=== PATIENT | female | born 1980 | race Caucasian/White ===

== ENCOUNTER 2016-07-04 11:29 | Emergency (ER) | payer OTHER ==
[~2016-07-04] VITALS: Ht 175.3 cm; Wt 115.8 kg
[~2016-07-04 11:29] MED LIST: ACET-1311 PO; ALBU0.08 INH; CYCL10TA6 PO; FOLI1TAB7 PO; IBUP-103 PO; MTHI50 INJ; TRAM-10 PO
[2016-07-04 11:35] VITALS: TEMP 37; Ht 175.3 cm; Wt 115.8 kg
[2016-07-04] MEDS ORDERED: NF406 PO (11:45)
[2016-07-04] MEDS ORDERED: KETOROLAC TROMETHAMINE 30 MG/ML VIAL IV STA (12:16)
[2016-07-04] MEDS ORDERED: SODIUM CHLORIDE 0.9% 1000ML 1,000 ML IV STA (12:16)
[2016-07-04] MEDS ORDERED: ONDANSETRON INJ 2 MG/ML 2 ML VIAL IV STA (12:16)
[2016-07-04] MEDS ORDERED: ALBUTEROL 0.5% NEB SOLN 2.5 MG/0.5 ML VIAL INH STA (12:16)
[2016-07-04 13:03] LABS: BASO % 0.2 %; BASO ABS # 0.01 K/uL (0-0.2); COMPLETE YES; EOS % 0.9 %; HEMATOCRIT 43.9 % (37-47); IG% 0.2 %; LYMPH % 27.1 %; LYMPH ABS # 1.18 K/uL (1.2-3.4); MEAN CELL VOLUME 86.2 fL (80-100); MEAN CORPUSCULAR HEMOGLOBIN 31.4 pg (25-34); MEAN CORPUSCULAR HGB CONC 36.4 g/dl (32-36); MEAN PLATELET VOLUME 10.2 fL (7.4-10.4); MONO % 10.8 %; NEUT % 60.8 %; PLATELET COUNT 155 K/uL (130-400); RED BLOOD COUNT 5.09 M/uL (4.2-5.4); WHITE BLOOD COUNT 4.36 K/uL (4.8-10.8)
[2016-07-04 13:29] LABS: ALT/SGPT 25 U/L (12-78); AST/SGOT 28 U/L (15-37); BLOOD UREA NITROGEN 14 mg/dl (7-18); CALCIUM 9.1 mg/dl (8.5-10.1); CARBON DIOXIDE 22 mmol/L (21-32); CHLORIDE 109 mmol/L (98-107); CREATININE 0.83 mg/dl (0.60-1.20); GLUCOSE 90 mg/dl (70-99); POTASSIUM 3.8 mmol/L (3.5-5.1); SODIUM 141 mmol/L (136-145)
[2016-07-04 13:43] LABS: INR 1.1 (0.9-1.1); PARTIAL THROMBOPLASTIN RATIO 1.1; PROTHROMBIN TIME (PATIENT) 11.5 SECONDS (9.0-12.0)
--- NOTE | 2016-07-04 13:57 | DIAGNOSTIC IMAGING REPORT ---
PA CHEST RADIOGRAPH AND UPRIGHT AND SUPINE AP RADIOGRAPHS OF THE ABDOMEN CLINICAL HISTORY: Abdominal pain. COMPARISON STUDY: Chest radiograph February 25, [address] of the abdomen and pelvis April 12, 2016. FINDINGS: Lung volumes are normal. Lungs are clear. There is no pneumothorax or pleural effusion. There is no evidence of pulmonary edema. Cardiomediastinal silhouette is normal. There are cholecystectomy clips. There is no free air. The bowel gas pattern is normal. Pelvic calcifications were shown to represent phleboliths on prior CT. IMPRESSION: 1. No free air or evidence of bowel obstruction. 2. No acute cardiopulmonary findings. Electronically signed by: Isiah Renee M.D. 07/04/2016 1:55 PM Dictated Date/Time: 07/04/2016 1:53 PM
[2016-07-04 14:07] LABS: ALKALINE PHOSPHATASE 94 U/L (45-117)
[2016-07-04] MEDS ORDERED: METHYLPREDNISOLONE 125 MG VIAL IV STA (14:13)
[2016-07-04 15:04] LABS: URINE APPEARANCE CLOUDY (CLEAR); URINE COLOR DK YELLOW; URINE EPITHELIAL CELL AUTO >30 /lpf (0-5); URINE NITRITE NEG (NEG); URINE PH 5.5 (4.5-7.5); URINE SPECIFIC GRAVITY 1.029 (1.000-1.030); UROBILINOGEN NEG (NEG)
[2016-07-04] MEDS ORDERED: OPTIRAY 320 IV PRN (15:15)
[2016-07-04 15:16] LABS: MANUAL MICROSCOPIC REQUIRED? NO; REVIEW REQ? NO; URINE BILIRUBIN NEG (NEG)
--- NOTE | 2016-07-04 15:24 | DIAGNOSTIC IMAGING REPORT ---
CT ANGIOGRAPHY OF THE CHEST, PULMONARY EMBOLUS PROTOCOL CLINICAL HISTORY: Short of breath, palpitations and bloody sputum. COMPARISON STUDY: Chest CT October 03, 2015. TECHNIQUE: The patient was premedicated for an IV dye allergy as per the ER protocol. Following IV administration of 105 mL of [id number]-[id number], helical axial images of the chest were obtained utilizing the pulmonary embolus protocol. Maximal intensity projections and sagittal and coronal reformats were viewed on an independent 3D workstation. IV contrast was administered without complication. CT DOSE: 641.04 mGy.cm FINDINGS: No pulmonary emboli are identified. The size of the heart is normal. There is no evidence of thoracic aortic dissection. No enlarged axillary, mediastinal or hilar lymph nodes are present. The central airways are patent. A 4 mm nodule within the right middle lobe is unchanged. This is benign. There is no consolidation. There is no pneumothorax or pleural effusion. There is a small hiatal hernia. The bony thorax and upper abdomen are unremarkable. IMPRESSION: 1. No pulmonary emboli identified. 2. No acute intrathoracic findings. Electronically signed by: Isiah Renee M.D. 07/04/2016 3:22 PM Dictated Date/Time: 07/04/2016 3:04 PM
[2016-07-04 16:16] VITALS: BP 126/72; PULSE 95; O2SAT 96
--- NOTE | 2016-07-06 09:10 | EMERGENCY ROOM VISIT NOTE ---
ED Visit Note First contact with patient: 11:58 Chief Complaint: Fever, cough, chills, muscle aches and diarrhea. History of Present Illness: Ms. Watkins is a 35-year-old white female who ambulates into the ED with multiple flulike complaints. Historically patient reports she has a history of diabetes, asthma, bronchitis, pneumonia and rheumatoid arthritis. Patient reports 3 days ago her was diagnosed with influenza A at a local urgent care center. She was prophylactically started on Tamiflu because she was started experiencing upper respiratory tract symptoms at that time including nasal congestion, drainage and a nonproductive cough. She reports that last night she started feeling ill with a worsening cough, chest discomfort, fevers, chills, and body aches. Currently she describes her chest discomfort as if someone punched her in the chest. The pain is nonradiating. She places her discomfort in the midsternal area. She rates her discomfort 7/10. The discomfort is nonradiating. It worsens with deep inspiration and cough. She has not identified any alleviating factors related to the pain. She does report she has been using ibuprofen for some of her other symptoms but has had no relief of her discomfort. She reports her cough is constant. Her cough is is productive of a mostly yellowish sputum but does report intermittently she has seen some red streaking in the sputum. Associated with her pain and cough she does report she feels short of breath, intermittent heart racing and has been having pain in both lower legs while sleeping last night. Her body aches are primarily in her larger muscles. They worsen with palpation and movement. She has minimal relief of her discomfort with ibuprofen. Additionally she reports that she has been having some posttussive vomiting and this morning she reports after eating she developed crampy abdominal and diarrhea. Since that time every time she attempts to eat or drink her diarrhea returns. She reports she has had 4 episodes of yellowish watery stools. She denies skin eruptions, skin color changes, headache, dizziness, lightheadedness, painful talking, drooling, voice changes, neck pain/stiffness, nausea, bloody vomitus, bloody stools, urinary symptoms, vaginal bleeding/ discharge, flank pain, back pain. Review of Systems: As noted above in history of present illness. All body systems were reviewed and found to be negative as noted above. Past Medical History: As previously noted, GERD, gastric ulcers, ureter stricture, status post hysterectomy, cholecystectomy and multiple orthopedic surgeries. Current Medications: Medications Dose Route/Sig Max Daily Dose Days Date Category Dose Instructions Tamiflu (Oseltamivir Phosphate) 75 Mg Cap 75 Mg PO DAILY 07/04/16 Reported Tylenol (Acetaminophen) 325 Mg Tab 650 Mg PO Q4 PRN 03/01/16 Reported Advil (Ibuprofen) 200 Mg Tab 200 Mg PO 03/01/16 Reported Proventil 0.083% 2.5MG/3ML (Albuterol Sulfate) Nebu 2.5 Mg INH Q6 PRN 12/27/15 Reported Ultram (Tramadol HCl) 50 Mg Tab 50 Mg PO HS PRN 12/27/15 Reported Imitrex (Sumatriptan Succinate) 100 Mg Tab 100 Mg PO UD PRN 12/09/15 Reported TAKE ONE TABLET AT ONSET OF MIGRAINE, MAY REPEAT AFTER 2 HOURS IF NEEDED. Topamax (Topiramate) 25 Mg Tab 25 Mg PO DAILY 12/09/15 Reported Allergies to Medications: Penicillin, Compazine, Benadryl, iodine, IV contrast. Social History: Patient is currently employed; she feels safe in her home environment; she denies tobacco and alcohol use. Physical Examination: Vital Signs: Date Time Temp Pulse Resp B/P Pulse Ox O2 Delivery O2 Flow Rate FiO2 07/04/16 16:16 95 20 126/72 96 Room Air 07/04/16 14:38 93 20 123/61 95 Room Air 07/04/16 12:58 81 07/04/16 12:48 94 24 127/90 94 Room Air 07/04/16 11:35 37.0 104 18 111/69 97 Room Air GENERAL: 35-year-old female in moderate distress due to symptoms but does not appear in acute respiratory distress, nontoxic-appearing, afebrile and hemodynamically stable. NEUROLOGICAL: Awake, alert and oriented to person, place and time. Answering questions appropriately and following commands. Normal gait. Good hand eye coordination. No focal motor sensory deficits. SKIN: Warm, dry and pink. No soft tissue eruptions or trauma noted. HEENT: Atraumatic and normocephalic. PERRLA. Sclera white and conjunctiva pink. No drainage from naris, but audible congestion. Oral cavity moist and pink. Uvula midline and no abscesses are seen. No posterior pharyngeal erythema or edema. No tonsillar hypertrophy or exudates. Speech normal. No lymphadenopathy. Trachea midline. No jugular venous distention. BACK: No tenderness over the bony spine. Full range of motion of the cervical spine. No CVA tenderness. THORAX: Lungs sounds are clear to auscultation but decreased bilaterally in the bases. Equal bilaterally with symmetrical chest wall. No wheezing, rales or rhonchi. No crepitus, tenderness, subcutaneous air or deformities noted. No increased respiratory effort or rate. HEART: Tachycardic rate and rhythm. No gallops, rubs or murmurs are appreciated. ABDOMEN: Obese, soft and nontender. Positive bowel sounds in all quadrants. No guarding, rigidity or organomegaly. EXTREMITIES: Moves all extremities well on command and with purpose. All distal neurovascular statuses are intact and equal bilaterally. No calf tenderness or cords. ED Course: Patient is assessed as noted above. Laboratory Testing: Test 07/04/16 12:20 07/04/16 12:30 07/04/16 12:36 07/04/16 12:47 Range/Units White Blood Count 4.36 4.8-10.8 K/uL Red Blood Count 5.09 4.2-5.4 M/uL Hemoglobin 16.0 12.0-16.0 g/dL Hematocrit 43.9 37-47 % Mean Corpuscular Volume 86.2 80-100 fL Mean Corpuscular Hemoglobin 31.4 25-34 pg Mean Corpuscular Hemoglobin Concent 36.4 32-36 g/dl Platelet Count 155 130-400 K/uL Mean Platelet Volume 10.2 7.4-10.4 fL Neutrophils (%) (Auto) 60.8 % Lymphocytes (%) (Auto) 27.1 % Monocytes (%) (Auto) 10.8 % Eosinophils (%) (Auto) 0.9 % Basophils (%) (Auto) 0.2 % Neutrophils # (Auto) 2.65 1.4-6.5 K/uL Lymphocytes # (Auto) 1.18 1.2-3.4 K/uL Monocytes # (Auto) 0.47 0.11-0.59 K/uL Eosinophils # (Auto) 0.04 0-0.5 K/uL Basophils # (Auto) 0.01 0-0.2 K/uL RDW Standard Deviation 39.1 36.4-46.3 fL RDW Coefficient of Variation 12.3 11.5-14.5 % Immature Granulocyte % (Auto) 0.2 % Immature Granulocyte # (Auto) 0.01 0.00-0.02 K/uL Sodium Level 141 136-145 mmol/L Potassium Level 3.8 3.5-5.1 mmol/L Chloride Level 109 98-107 mmol/L Carbon Dioxide Level 22 21-32 mmol/L Anion Gap 10.0 3-11 mmol/L Blood Urea Nitrogen 14 7-18 mg/dl Creatinine 0.83 0.60-1.20 mg/dl Est Creatinine Clear Calc Drug Dose 126.1 ml/min Estimated GFR () 104.4 Estimated GFR (Non- 90.1 BUN/Creatinine Ratio 17.0 10-20 Random Glucose 90 70-99 mg/dl Calcium Level 9.1 8.5-10.1 mg/dl Total Bilirubin 0.3 0.2-1 mg/dl Direct Bilirubin < 0.1 0-0.2 mg/dl Aspartate Amino Transf (AST/SGOT) 28 15-37 U/L Alanine Aminotransferase (ALT/SGPT) 25 12-78 U/L Alkaline Phosphatase 94 45-117 U/L Total Protein 7.5 6.4-8.2 gm/dl Albumin 3.9 3.4-5.0 gm/dl Lipase 91 73-393 U/L Bedside Glucose 100 70-90 mg/dl Influenza Type A Antigen POS for Influ A NEG Influenza Type B Antigen Neg for Influ B NEG Bedside D-Dimer > 450 0-450 ng/mlFEU Bedside Troponin I 0.000 0-0.045 ng/ml Test 07/04/16 13:23 07/04/16 14:30 Range/Units Prothrombin Time 11.5 9.0-12.0 SECONDS Prothromb Time International Ratio 1.1 0.9-1.1 Activated Partial Thromboplast Time 27.9 21.0-31.0 SECONDS Partial Thromboplastin Ratio 1.1 Urine Color DK YELLOW Urine Appearance CLOUDY CLEAR Urine pH 5.5 4.5-7.5 Urine Specific [place] 1.029 1.000-1.030 Urine Protein NEG NEG Urine Glucose (UA) NEG NEG Urine Ketones 2+ NEG Urine Occult Blood NEG NEG Urine Nitrite NEG NEG Urine Bilirubin NEG NEG Urine Urobilinogen NEG NEG Urine Leukocyte Esterase NEG NEG Urine WBC (Auto) 1-5 0-5 /hpf Urine RBC (Auto) 0-4 0-4 /hpf Urine Hyaline Casts (Auto) 1-5 0-5 /lpf Urine Epithelial Cells (Auto) >30 0-5 /lpf Urine Bacteria (Auto) NEG NEG Patient unable to provide a stool sample. Acute Abdominal X-Ray Series: Was read by myself and the radiologist showing no acute infiltrates, effusions or pneumothorax. Normal heart silhouette and bony anatomy. Abdominal component shows a nonspecific bowel gas pattern that does not appear obstructed. There is no free air under the diaphragm. Radiologist does note cholecystectomy clips and pelvic calcifications seen similar on previous abdominal CT. Chest CTA: Was reviewed by myself and read by the radiologist shows no acute pulmonary emboli or acute intrathoracic findings. Patient was hydrated with normal saline, she received 30 mg of Toradol IV for pain, 4 mg of Zofran IV for nausea, an albuterol/Atrovent nebulizer breathing treatment and 125 mg of Solu-Medrol IV. Patient was reassessed multiple times during her stay in the emergency department; after her breathing treatment her lung sounds were reassessed and she had an improved air movement in the bases and continued to have no wheezing , rales or rhonchi. Patient's case was reviewed with Dr. Donis; we agreed on diagnostic approach, treatment, disposition and plan. Patient was educated about tonight's findings and instructed on her treatment plan; she verbalizes understanding and agreement with this plan. Clinical Impression: Influenza A. Decision-Making: Initially my differential diagnosis I considered influenza, pneumonia, bronchitis, pulmonary embolism, acute coronary syndrome and other causes. Disposition: Patient discharged home in stable condition accompanied by her ; prior to departure she was reassessed and subjectively reported she was feeling better. Plan: Patient was encouraged to alternate ibuprofen and acetaminophen every 3 hours as needed for pain or fevers. Patient was encouraged to stay well hydrated. Patient was encouraged to continue her current medications including her Tamiflu. Patient was signed off work for 3 days or until fever free for 24 hours. Patient was encouraged to follow-up with family physician for recheck in the next 3-4 days. Patient was encouraged return ED for worsening/uncontrolled pain, worsening cough, shortness of breath/wheezing, coughing up blood, uncontrolled fevers or any new/concerning symptoms.
[2016-07-21] MEDS ORDERED: CALC500C3 PO (07:04)
[2016-07-21] MEDS ORDERED: OXYC-57 PO (08:35)
[2017-01-03] MEDS ORDERED: TOPI25TA99 PO (11:35)
[2017-01-03] MEDS ORDERED: SUMA100T16 PO (11:35)
== END 2016-07-04 16:19 | disposition home or self-care (01) ==
LOC: C.EDB 11:31 → C.EDC 16:19
DX: J11.1 Influenza due to unidentified influenza virus with other respiratory manifestations (principal); E11.9 Type 2 diabetes mellitus without complications; M06.9 Rheumatoid arthritis, unspecified; R19.7 Diarrhea, unspecified; Z87.01 Personal history of pneumonia (recurrent); Z87.19 Personal history of other diseases of the digestive system; Z90.710 Acquired absence of both cervix and uterus; Z90.49 Acquired absence of other specified parts of digestive tract

== ENCOUNTER → 2016-07-21 | Day surgery (SDC) | payer OTHER ==
[2016-07-11 08:43] VITALS: BMI 38.0
--- NOTE | 2016-07-11 09:16 | PAT Medication Instructions ---
Service Date Jul 11, 2016. Current Home Medication List Albuterol Soln (Proventil 0.083% 2.5MG/3ML), 2.5 MG INH Q6 PRN for SOB/Wheezing Sumatriptan Succinate (Imitrex), 100 MG PO UD PRN for Migraine Topiramate (Topamax ), 25 MG PO DAILY Tramadol (Ultram), 50 MG PO HS PRN for Pain Medication Instructions For Your Scheduled Surgery - Take the following medications the morning of surgery with a sip of water OTHERWISE NOTHING TO EAT OR DRINK AFTER MIDNIGHT: Tramadol (Ultram), 50 MG PO HS PRN for Pain (may take up to 4 hours prior to surgery if needed) Topiramate (Topamax ), 25 MG PO PRN Sumatriptan Succinate (Imitrex), 100 MG PO UD PRN for Migraine Albuterol Soln (Proventil 0.083% 2.5MG/3ML), 2.5 MG INH Q6 PRN for SOB/Wheezing Albuterol Inhaler PRN (use if needed; BRING TO HOSPITAL) - Take the following medications as scheduled the night before surgery: Tramadol (Ultram), 50 MG PO HS PRN for Pain Sumatriptan Succinate (Imitrex), 100 MG PO UD PRN for Migraine Albuterol Soln (Proventil 0.083% 2.5MG/3ML), 2.5 MG INH Q6 PRN for SOB/Wheezing Albuterol Inhaler PRN If you have any questions please call us at [phone] (Isela Oro PA-C ) or [phone] or [phone]
[2016-07-11 10:27] LABS: URINE APPEARANCE CLEAR (CLEAR); URINE BILIRUBIN NEG (NEG); URINE COLOR YELLOW; URINE NITRITE NEG (NEG); URINE SPECIFIC GRAVITY 1.017 (1.000-1.030); UROBILINOGEN NEG (NEG)
[2016-07-11 10:32] LABS: MANUAL MICROSCOPIC REQUIRED? NO; REVIEW REQ? NO
[~2016-07-21] VITALS: Ht 175.3 cm; Wt 117.9 kg
[~2016-07-21] MED LIST changes: -ACET-1311 PO; +ALBINS/ INH; +ATROPINE SULFATE 0.1 MG/ML 5ML SYR IV PRN; +CALC500C3 PO; +CIPROFLOXACIN / D5W 400 MG IV SCH; +CONRAY 30% 150ML BOTTLE INSTIL ONE; -CYCL10TA6 PO; +DEXAMETHASONE SOD INJ 4 MG/ML VIAL ONE; +EpHEDrine SULFATE INJ 50 MG/ML AMP IV PRN; +FENTANYL CITRATE INJ 50 MCG/1 ML 2 ML VIAL IV PRN; +FENTANYL CITRATE INJ 50 MCG/1 ML 2 ML VIAL ONE; +FLUMAZENIL 0.1 MG/1 ML 10 ML VIAL IV PRN; -FOLI1TAB7 PO; +HYDROmorphone INJ 2 MG/ML SYR/VIAL IV PRN; +LABETALOL HCL IV 5 MG/ML 20ML IV PRN; +LACTATED RINGER'S 1000ML 1,000 ML IV SCH; +LIDOCAINE HCL 2% 2 ML VIAL (20MG/ML) ONE; +MEPERIDINE HCL 25 MG/ML CARP IV PRN; +MIDAZOLAM HCL 1 MG/ML 2ML VIAL ONE; -MTHI50 INJ; +NALOXONE HCL 0.4 MG/1 ML VIAL/CARP IV PRN; +NAPR1TAB9 PO; +ONDANSETRON INJ 2 MG/ML 2 ML VIAL IV PRN; +ONDANSETRON INJ 2 MG/ML 2 ML VIAL ONE; +OXYC-57 PO; +OXYCODONE/ACETAMINOPHEN 5-325 TAB PO PRN; +PHENYLEPHRINE 100MCG/ML 5ML SYR IV PRN; +PROPOFOL IV EMULSION 10 MG/ML 20 ML VIAL IV ONE; +SCOPOLAMINE 1.5 MG TDSY TD ONE; +SCOPOLAMINE 1.5 MG TDSY TD SCH; +SUMA100T16 PO; +TOPI25TA99 PO; +ZLF/50 PO
[2016-07-21 07:05] VITALS: BP 132/71; PULSE 84; TEMP 36.7; O2SAT 96; Ht 175.3 cm; Wt 117.9 kg
--- NOTE | 2016-07-21 07:05 | History & Physical Bridge Note ---
H&P Re-Evaluation Bridge Note: I have examined the patient, reviewed the History & Physical and in the interval since the performance of the History & Physical I have noted the following changes of clinical significance: No changes noted
--- NOTE | 2016-07-21 08:32 | [facility] Post Operative Brief Note ---
Immediate Operative Summary Operative Date Jul 21, 2016. Pre-Operative Diagnosis Abnormal bladder mucosa Post-Operative Diagnosis same Procedure(s) Performed cysto retrogrades bladder biopsy and fulguration Surgeon luis daniel [employer] Healthcare Consultant Surgeon(s) none Estimated Blood Loss none Findings abnormal bladder mucosa normal retrogrades Specimens bladder biopsy
--- NOTE | 2016-07-21 08:36 | Discharge Instructions ---
Discharge Instructions Visit Reason for Visit: Bladder Neoplasm Discharge Discharge Diagnosis / Problem: abnormal bladder mucosa Discharge Goals Goal(s): Therapeutic intervention Activity Recommendations Activity Limitations: resume your previous activity (take it easy today) Anesthesia . Post Anesthesia Instructions: If you have had General Anesthesia or IV Sedation: * Do not drive today. * Resume driving when surgeon permits. * Do not make important decisions or sign legal documents today. * Call surgeon for: 1. Temperature elevations greater than 101 degrees F. 2. Uncontrollable pain. 3. Excessive bleeding. 4. Persistent nausea and vomiting. 5. Medication intolerance (nausea, vomiting or rash). * For nausea and vomiting use only clear liquids such as: tea, soda, bouillon until nausea subsides, then gradually increase diet as tolerated. * If you have any concerns or questions, call your surgeon's office. If physician is unavailable and it is an emergency, call 911 or go to the nearest emergency room. . Diet Recommendations Recommended Home Diet: resume previous diet Procedures Procedures Performed: cysto retrogrades bladder biopsy and fulguration Pending Studies Studies pending at discharge: no Medical Emergencies . Who to Call and When: Medical Emergencies: If at any time you feel your situation is an emergency, please call 911 immediately. . Non-Emergent Contact Non-Emergency issues call your: Urologist . . "Provider Documentation" section prepared by Mervin Evans. [place] Drug Monitoring Program Search Results: patient reviewed within database
--- NOTE | 2016-07-21 09:08 | OPERATIVE REPORT ---
DATE OF OPERATION: 07/21/2016 PREOPERATIVE DIAGNOSES: Gross hematuria, abnormal bladder mucosa. POSTOPERATIVE DIAGNOSIS: Same. PROCEDURE: Cystoscopy, bilateral retrograde pyelograms, bladder biopsy x2 and fulguration. FINDINGS: Cystoscopic exam revealed normal urethra. Bladder showed 2 areas of heaped up erythematous mucosa. Left and right retrogrades were normal. SURGEON: Dr. Evans. ANESTHESIA: General. DRAINS: None. COMPLICATIONS: None. SPECIMENS: Bladder biopsies. INDICATIONS: The patient is a 35-year-old white female who was seen in the office for gross hematuria. Workup, including a cystoscopy, showed some abnormal bladder mucosa. She is being brought in now for cysto retrogrades and bladder biopsy. PROCEDURE: After the induction of an adequate general anesthetic and appropriate time-out, the patient was placed in the dorsal lithotomy position, lower abdomen and genitalia were prepped with Hibiclens and draped in a sterile fashion. Using a 22-Dominican cystoscope, routine cystoscopic exam was performed with the above noted findings with the 30 and 70 degree lenses. Next, using a 4.8 Dominican cone tipped catheter, left and right retrograde pyelograms were performed with the above noted findings. After completing this, the 2 abnormal areas in the bladder were biopsied and then these areas were fulgurated for hemostasis. After completing this and making sure there was no bleeding, bladder was drained, cystoscope and sheath were removed. All needle, sponge and instrument counts were correct at the end of the case. The patient tolerated the procedure well and went to the recovery room in stable condition. I attest to the content of the Intraoperative Record and any orders documented therein. Any exceptio ns are noted below.
[2016-07-21 09:30] VITALS: BP 107/58; PULSE 75; TEMP 36.7; O2SAT 96
--- NOTE | 2016-07-21 09:32 | DIAGNOSTIC IMAGING REPORT ---
INTRAOPERATIVE RADIOGRAPHS CLINICAL HISTORY: Bilateral retrograde ureterogram. Fluoroscopy time: 14 seconds. FINDINGS: 7 spot fluoroscopic views of the abdomen from bilateral retrograde ureterogram procedures are presented. Correlation is made with abdominal CT dated 04/12/2016. Both ureters appear to opacify smoothly with injected contrast. No hydronephrosis is seen. No filling defects are clearly visualized. Numerous pelvic phleboliths are observed. IMPRESSION: Intraoperative images from bilateral retrograde ureterograms as above. See operative report for detailed findings. Electronically signed by: Hany Cole M.D. 07/21/2016 9:31 AM Dictated Date/Time: 07/21/2016 9:29 AM
[2016-07-21 10:00] VITALS: BP 106/64; PULSE 77; O2SAT 97
--- NOTE | 2016-07-21 10:04 | Anesthesiology Progress Note ---
Anesthesia Post Op Note Date & Time Jul 21, 2016 at 10:04 Vital Signs Pain Intensity: 0 Vital Signs Past 12 Hours Date Time Temp Pulse Resp B/P Pulse Ox O2 Delivery O2 Flow Rate FiO2 07/21/16 09:30 36.7 75 20 107/58 96 Room Air 07/21/16 09:24 74 22 07/21/16 09:24 73 22 94 07/21/16 09:23 115/64 07/21/16 09:19 65 12 07/21/16 09:19 67 12 97 07/21/16 09:18 103/56 07/21/16 09:14 71 9 07/21/16 09:14 75 9 92 07/21/16 09:13 108/66 07/21/16 09:09 73 14 07/21/16 09:09 72 14 113/61 97 07/21/16 09:08 36.4 79 16 07/21/16 09:08 77 16 96 07/21/16 09:07 115/80 07/21/16 09:03 91 14 115/101 90 07/21/16 09:03 84 14 07/21/16 08:58 74 16 07/21/16 08:58 75 16 111/69 96 07/21/16 08:53 82 25 125/73 93 07/21/16 08:53 83 25 07/21/16 08:49 119/70 07/21/16 08:48 83 19 95 07/21/16 08:48 82 19 07/21/16 08:43 85 17 07/21/16 08:43 85 17 141/74 100 07/21/16 08:38 82 18 07/21/16 08:38 82 18 133/87 100 07/21/16 08:33 87 19 140/82 100 07/21/16 08:33 86 19 07/21/16 08:30 113/89 07/21/16 08:28 36.5 90 20 113/89 100 Mask 10 07/21/16 07:05 36.7 84 18 132/71 96 Room Air Notes Mental Status: alert / awake / arousable, participated in evaluation Pt Amnestic to Procedure: Yes Nausea / Vomiting: adequately controlled Pain: adequately controlled Airway Patency, RR, SpO2: stable & adequate BP & HR: stable & adequate Hydration State: stable & adequate Anesthetic Complications: no major complications apparent
[2016-07-21 10:48] VITALS: BP 121/73; PULSE 81; TEMP 36.4; O2SAT 97
== END | disposition home or self-care (01) ==
LOC: C.ACU 06:51
PROVIDERS: ATTEND Urology
DX: R31.0 Gross hematuria (principal); N32.9 Bladder disorder, unspecified; E11.9 Type 2 diabetes mellitus without complications; Z86.711 Personal history of pulmonary embolism; J45.909 Unspecified asthma, uncomplicated; G51.0 Bell's palsy; E66.9 Obesity, unspecified; Z68.38 Body mass index [BMI] 38.0-38.9, adult; Z91.013 Allergy to seafood; Z88.0 Allergy status to penicillin; Z88.1 Allergy status to other antibiotic agents; Z90.49 Acquired absence of other specified parts of digestive tract; Z98.890 Other specified postprocedural states; Z90.710 Acquired absence of both cervix and uterus; Z87.891 Personal history of nicotine dependence; Z98.51 Tubal ligation status; Z83.3 Family history of diabetes mellitus; Z82.49 Family history of ischemic heart disease and other diseases of the circulatory system; Z82.5 Family history of asthma and other chronic lower respiratory diseases; Z80.0 Family history of malignant neoplasm of digestive organs; Z82.3 Family history of stroke

== ENCOUNTER → 2016-09-15 | Outpatient (CLI) | payer OTHER ==
[~2016-09-15] MED LIST changes: -ATROPINE SULFATE 0.1 MG/ML 5ML SYR IV PRN; -CIPROFLOXACIN / D5W 400 MG IV SCH; -CONRAY 30% 150ML BOTTLE INSTIL ONE; -DEXAMETHASONE SOD INJ 4 MG/ML VIAL ONE; -EpHEDrine SULFATE INJ 50 MG/ML AMP IV PRN; -FENTANYL CITRATE INJ 50 MCG/1 ML 2 ML VIAL IV PRN; -FENTANYL CITRATE INJ 50 MCG/1 ML 2 ML VIAL ONE; -FLUMAZENIL 0.1 MG/1 ML 10 ML VIAL IV PRN; -HYDROmorphone INJ 2 MG/ML SYR/VIAL IV PRN; -LABETALOL HCL IV 5 MG/ML 20ML IV PRN; -LACTATED RINGER'S 1000ML 1,000 ML IV SCH; -LIDOCAINE HCL 2% 2 ML VIAL (20MG/ML) ONE; -MEPERIDINE HCL 25 MG/ML CARP IV PRN; -MIDAZOLAM HCL 1 MG/ML 2ML VIAL ONE; -NALOXONE HCL 0.4 MG/1 ML VIAL/CARP IV PRN; -ONDANSETRON INJ 2 MG/ML 2 ML VIAL IV PRN; -ONDANSETRON INJ 2 MG/ML 2 ML VIAL ONE; -OXYCODONE/ACETAMINOPHEN 5-325 TAB PO PRN; -PHENYLEPHRINE 100MCG/ML 5ML SYR IV PRN; -PROPOFOL IV EMULSION 10 MG/ML 20 ML VIAL IV ONE; -SCOPOLAMINE 1.5 MG TDSY TD ONE; -SCOPOLAMINE 1.5 MG TDSY TD SCH
--- NOTE | 2016-09-15 12:27 | DIAGNOSTIC IMAGING REPORT ---
RIGHT KNEE 1 OR 2 VIEWS ROUTINE CLINICAL HISTORY: Right knee pain COMPARISON: None. DISCUSSION: No fractures or dislocations are visualized. There is a bone island within distal femur. IMPRESSION: No fractures, dislocations, destructive lesions, or erosive disease. Electronically signed by: Luis Benjamin M.D. 09/15/2016 12:26 PM Dictated Date/Time: 09/15/2016 12:25 PM
== END | disposition home or self-care (01) ==
LOC: C.RAD 11:56
PROVIDERS: ATTEND Nurse Practitioner
DX: M25.561 Pain in right knee (principal)

== ENCOUNTER 2016-10-15 14:04 | Emergency (ER) | payer OTHER ==
[~2016-10-15] VITALS: Ht 175.3 cm; Wt 118.8 kg
[~2016-10-15 14:04] MED LIST changes: -ALBINS/ INH; -IBUP-103 PO; -NAPR1TAB9 PO; -SUMA100T16 PO; -TOPI25TA99 PO; -ZLF/50 PO
[2016-10-15 14:19] VITALS: Ht 175.3 cm; Wt 118.8 kg
--- NOTE | 2016-10-15 15:16 | DIAGNOSTIC IMAGING REPORT ---
ULTRASOUND RIGHT VENOUS DOPP LOWER EXT UNILAT CLINICAL HISTORY: Right leg pain COMPARISON STUDY: 10/02/2015 FINDINGS: Real-time and color flow Doppler imaging were performed. Flow was seen within the femoral, popliteal and calf veins with no intraluminal thrombus demonstrated. The saphenous vein is patent. IMPRESSION: No evidence of right lower extremity DVT. Electronically signed by: Luis Benjamin M.D. 10/15/2016 3:13 PM Dictated Date/Time: 10/15/2016 3:13 PM
[2016-10-15] MEDS ORDERED: ALBINS/ INH (15:36)
[2016-10-15] MEDS ORDERED: NAPR1TAB9 PO (15:36)
--- NOTE | 2016-10-15 16:03 | EMERGENCY ROOM VISIT NOTE ---
History First contact with patient: 14:25 Chief Complaint: LEG PAIN,LEG INJURY Stated Complaint: R LEG PAIN,DOC REFER TO RULE OUT DVT History of Present Illness The patient is a 36 year old female who presents to the Emergency Room with complaints of right leg pain. The patient reports that she has had right knee pain for the past one month. She states that she has had progressively worsening pain, especially when walking and walking up stairs. She states that she has seen her primary care provider and did physical therapy for 3 weeks, which worsened her pain. She is currently waiting on a referral to orthopedics. She does state she has a history rheumatoid arthritis and was previously receiving injections of methotrexate but states that she did not tolerate this well. She sought care [facility] today because the pain has been radiating down into her right calf and was sent here for evaluation of a possible DVT. The patient is not a smoker. She denies control use. She denies any recent long trips. She denies any personal or family history of blood clots. She denies any chest pain, shortness of breath, numbness or weakness. Review of Systems A complete 10-point Review of Systems was discussed with the patient, with pertinent positives and negatives listed in the History of Present Illness. All remaining Review of Systems questions can be considered negative unless otherwise specified. Past Medical/Surgical History Medical Problems: (1) Abdominal pain (2) Abdominal pain (3) Abdominal pain (4) Abdominal pain (5) Abdominal pain (6) Abdominal pain (7) Acute bronchitis (8) Asthma (9) Back strain (10) Biliary dyskinesia (11) Bronchitis (12) Cellulitis (13) Cellulitis (14) Cellulitis (15) Chest pain (16) Chest pain (17) Chronic headache (18) Chronic headache (19) Chronic low back pain (20) Costochondral pain (21) Costochondritis (22) Dehydration (23) Dehydration (24) DIAB SOFY WO COMPL, TYPE II OR UNSPEC TYPE, NOT UNCNTRLD (25) Diabetes (26) Diabetes mellitus (27) Diarrhea (28) Esophageal Reflux (29) ESOPHAGEAL REFLUX (30) Exacerbation of chronic back pain (31) Exacerbation of chronic back pain (32) Forearm contusion (33) Gastritis (34) Gastritis (35) Headache (36) Headache (37) Hip pain (38) Insect bite (39) Insect bite (40) Irritable Bowel Syndrome (41) Joint pain (42) Left sided numbness (43) Leg pain (44) Low back pain (45) Nausea & vomiting (46) Neurological complaint (47) Palpitations (48) Pleurisy (49) Post-tussive emesis (50) Rheumatoid arteritis (51) Rheumatoid arteritis (52) Right ankle sprain (53) Right lumbar radiculopathy (54) Right lumbar radiculopathy (55) Sinusitis (56) SOB (shortness of breath) (57) SYMPT STATES ASSOC W ARTIFIC MENOPAUSE (58) Upper respiratory infection (59) Urinary symptom or sign Surgical Problems: (1) H/O: hysterectomy (2) H/O: hysterectomy (3) H/O: hysterectomy (4) S/P cholecystectomy Family History Cancer Cancer Diabetes mellitus Gallbladder disease Gallbladder disease Heart disease Hypertension Kidney disease Kidney stones Social History Smoking Status: Never Smoker Alcohol Use: none Drug Use: none Marital Status: Housing Status: lives with family Occupation Status: employed Current/Historical Medications Scheduled PRN Albuterol Sulf (Proventil 0.083% 2.5MG/3ML), 2.5 MG INH Q6 PRN for SOB/Wheezing Calcium Carbonate (Tums), 500 MG PO DAILY PRN for Heartburn Naproxen (Aleve), 220 MG PO BID PRN for Pain Oxycodone/Acetaminophen 5MG/325MG (Percocet 5MG/325MG), 1-2 TABLETS PO Q4H PRN for Pain Sumatriptan Succinate (Imitrex), 100 MG PO UD PRN for Migraine Topiramate (Topamax ), 25 MG PO DAILY PRN for Headache Tramadol (Ultram), 50 MG PO HS PRN for Pain Allergies Coded Allergies: Diphenhydramine (Verified Allergy, Severe, ANAPHYLAXIS, 10/15/16) Shellfish (Verified Allergy, Mild, THROAT SWELLS, 10/15/16) Iodinated Contrast Media (Verified Allergy, Unknown, IVP DYE, 10/15/16) Iodine (Verified Allergy, Unknown, RXN TO IVP DYE, 10/15/16) SHELLFISH Penicillins (Verified Allergy, Unknown, HIVES/EDEMA, 10/15/16) Prochlorperazine (Verified Adverse Reaction, Intermediate, DRY MOUTH, AGITATED, 10/15/16) Physical Exam Vital Signs Date Time Temp Pulse Resp B/P Pulse Ox O2 Delivery O2 Flow Rate FiO2 10/15/16 16:05 37.2 79 17 137/86 97 10/15/16 15:59 79 17 137/86 97 Room Air 10/15/16 14:19 37.2 81 18 134/88 97 Room Air Pain Rating (0-10): 8.0 Physical Exam VITALS: Vitals are noted on the nurse's note and reviewed by myself. Vital signs stable. GENERAL: This is a 36-year-old female, in no acute distress, nondiaphoretic, well-developed well-nourished. HEART: Regular rate and rhythm, no murmurs, gallops or rubs. LUNGS: Clear to auscultation bilaterally without wheezes, rales or rhonchi. MUSCULOSKELETAL: There is mild tenderness of the right popliteal space. Otherwise no tenderness of the knee. There is mild tenderness of the proximal calf. There is full range of motion of the knee. The toes are warm and well- perfused. Capillary refill within 2 seconds. Dorsalis pedis pulse is 2+. NEURO: Patient was alert and oriented to person place and time. Normal sensation to light and sharp touch. Medical Decision & Procedures ER Provider Diagnostic Interpretation: ULTRASOUND RIGHT VENOUS DOPP LOWER EXT UNILAT FINDINGS: Real-time and color flow Doppler imaging were performed. Flow was seen within the femoral, popliteal and calf veins with no intraluminal thrombus demonstrated. The saphenous vein is patent. IMPRESSION: No evidence of right lower extremity DVT. Medical Decision Differential diagnosis includes ligamentous injury, patellofemoral syndrome, arthritis, DVT, superficial thrombosis, among others. The patient was evaluated as above. Ultrasound of the right leg was performed and read by radiology with no acute findings. Patient was reassured. She was instructed to follow-up with orthopedics as scheduled. She will also continue to follow-up with her primary care provider. She verbalized understanding of my assessment and treatment plan and was discharged home in good condition. Impression Primary Impression: Leg pain, right Departure Information Dispostion Home / Self-Care Condition GOOD Referrals Cole Nicolas M.D. (PCP) Patient Instructions My [facility] Additional Instructions You have been treated in the Emergency Department for Knee Pain. Ultrasound of the leg was negative. For pain control, you can use the following [id number] medicines (if >12 yo): - Regular strength (325mg/tab) Tylenol (acetaminophen) 2 tabs every 4-6 hours as needed. Do not exceed 12 tablets in a 24 hour period. Avoid taking more than 4 grams (4000 mg) of Tylenol per day. This includes any other sources of acetaminophen you may take on a regular basis. - Regular strength (200 mg/tab) Advil (ibuprofen) 1-2 tabs every 4-6 hours as needed. Do not exceed a dose of 3200 mg per day. If this is a recent injury (<24 hrs), ice can be applied to the area of pain for the first 3 days to help decrease pain and inflammation. Ice massages can be performed by freezing water in a paper cup, peeling back the cup to expose the ice and then massaging over the affected area. Follow-up with orthopedics as scheduled. Return to the Emergency Department if your current symptoms worsen despite treatment course outlined above.
[2016-10-15 16:05] VITALS: BP 137/86; PULSE 79; TEMP 37.2; O2SAT 97
[2017-01-03] MEDS ORDERED: SUMA100T16 PO (11:35)
[2017-01-03] MEDS ORDERED: TOPI25TA99 PO (11:35)
[2017-04-15] MEDS ORDERED: TOPI50TA16 PO (13:49)
[2017-04-15] MEDS ORDERED: ASPI-390 (13:49)
== END 2016-10-15 16:05 | disposition home or self-care (01) ==
LOC: C.EDB 14:06 → C.EDC 16:05
DX: M25.561 Pain in right knee (principal); J45.909 Unspecified asthma, uncomplicated; G89.29 Other chronic pain; R51 Headache; M54.5 Low back pain; M06.9 Rheumatoid arthritis, unspecified; E11.9 Type 2 diabetes mellitus without complications; K21.9 Gastro-esophageal reflux disease without esophagitis; K58.9 Irritable bowel syndrome, unspecified; Z90.710 Acquired absence of both cervix and uterus; Z83.3 Family history of diabetes mellitus; Z82.49 Family history of ischemic heart disease and other diseases of the circulatory system; Z84.1 Family history of disorders of kidney and ureter

== ENCOUNTER 2017-01-03 17:03 | Emergency (ER) | payer OTHER ==
[~2017-01-03] VITALS: Ht 175.3 cm; Wt 127.0 kg
[~2017-01-03 17:03] MED LIST changes: +ALBINS/ INH; -ALBU0.08 INH; +NAPR1TAB9 PO; +SUMA100T16 PO; +TOPI25TA99 PO
[2017-01-03 17:09] VITALS: TEMP 36.9; Ht 175.3 cm; Wt 127.0 kg
[2017-01-03] MEDS ORDERED: SODIUM CHLORIDE 0.9% 1000ML 1,000 ML IV STA (17:29)
[2017-01-03] MEDS ORDERED: ALBUT/IPRATROP 3MG/0.5MG NEB 3 ML VIAL INH ONE (17:30)
[2017-01-03] MEDS ORDERED: IBUP-103 PO (17:41)
[2017-01-03 17:57] VITALS: O2SAT 96
--- NOTE | 2017-01-03 17:57 | DIAGNOSTIC IMAGING REPORT ---
CHEST ONE VIEW PORTABLE CLINICAL HISTORY: Pt c/o SOB dyspnea COMPARISON STUDY: 07/04/2016 FINDINGS: The bones soft tissues and hemidiaphragms are normal. The cardiomediastinal silhouette is normal. The lungs are clear. The pulmonary vasculature is normal. IMPRESSION: Negative chest. The above report was generated using voice recognition software. It may contain grammatical, syntax or spelling errors. Electronically signed by: Maximo Dobbins M.D. 01/03/2017 5:56 PM Dictated Date/Time: 01/03/2017 5:56 PM
[2017-01-03 18:31] LABS: ISTAT CREATININE 0.7 mg/dl (0.6-1.3); ISTAT HEMOGLOBIN 14.3 g/dl (12.0-16.0); ISTAT IONIZED CALCIUM 1.11 mmol/l (1.12-1.32)
[2017-01-03 18:31] LABS: BASO % 0.2 %; BASO ABS # 0.02 K/uL (0-0.2); COMPLETE YES; EOS % 1.5 %; HEMATOCRIT 40.7 % (37-47); IG% 0.2 %; LYMPH % 27.3 %; LYMPH ABS # 2.34 K/uL (1.2-3.4); MEAN CELL VOLUME 86.6 fL (80-100); MEAN CORPUSCULAR HEMOGLOBIN 31.3 pg (25-34); MEAN CORPUSCULAR HGB CONC 36.1 g/dl (32-36); MEAN PLATELET VOLUME 9.9 fL (7.4-10.4); MONO % 8.3 %; NEUT % 62.5 %; PLATELET COUNT 217 K/uL (130-400); WHITE BLOOD COUNT 8.56 K/uL (4.8-10.8)
--- NOTE | 2017-01-03 18:34 | EMERGENCY ROOM VISIT NOTE ---
History Report prepared by Bel: Richa Myers Under the Supervision of: Dr. Mumtaz Mcnulty M.D. First contact with patient: 17:13 Chief Complaint: SYNCOPE Stated Complaint: DIZZY,CHEST PAIN,HEADACHE,BLACKING OUT History of Present Illness The patient is a 36 year old female who presents to the Emergency Room with complaints of episodes of syncope occurring a few hours ago. The patient states that last night she started experiencing a bad headache. She states that she also then had chest pain, a cough, and was struggling to breath. The patient reports that it passed for the most part, but still had the chest pain. The patient currently rates her pain as a 7/10 in severity. She reports that her family stated that while sitting on the deck this afternoon she kept passing out. She states that she has been feeling fatigued and dizzy. The patient notes that it is worse with deep breathing. The patient notes a history of blood clots and denies being on any blood thinners. Source of History: patient Onset: few hours ago Position: other (global) Symptom Intensity: 7/10 Quality: other (global) Timing: other (episode) Associated Symptoms: + headache, + cough, + chest pain, + SOB, + fatigue Note: The patient complains of dizziness. Review of Systems See HPI for pertinent positives & negatives. A total of 10 systems reviewed and were otherwise negative. Past Medical & Surgical Medical Problems: (1) Abdominal pain (2) Abdominal pain (3) Abdominal pain (4) Abdominal pain (5) Abdominal pain (6) Abdominal pain (7) Acute bronchitis (8) Asthma (9) Back strain (10) Biliary dyskinesia (11) Bronchitis (12) Cellulitis (13) Cellulitis (14) Cellulitis (15) Chest pain (16) Chest pain (17) Chronic headache (18) Chronic headache (19) Chronic low back pain (20) Costochondral pain (21) Costochondritis (22) Dehydration (23) Dehydration (24) DIAB SOFY WO COMPL, TYPE II OR UNSPEC TYPE, NOT UNCNTRLD (25) Diabetes (26) Diabetes mellitus (27) Diarrhea (28) ESOPHAGEAL REFLUX (29) Esophageal Reflux (30) Exacerbation of chronic back pain (31) Exacerbation of chronic back pain (32) Forearm contusion (33) Gastritis (34) Gastritis (35) Headache (36) Headache (37) Hip pain (38) Hx of blood clots (39) Insect bite (40) Insect bite (41) Irritable Bowel Syndrome (42) Joint pain (43) Left sided numbness (44) Leg pain (45) Low back pain (46) Nausea & vomiting (47) Neurological complaint (48) Palpitations (49) Pleurisy (50) Post-tussive emesis (51) Rheumatoid arteritis (52) Rheumatoid arteritis (53) Right ankle sprain (54) Right lumbar radiculopathy (55) Right lumbar radiculopathy (56) Sinusitis (57) SOB (shortness of breath) (58) SYMPT STATES ASSOC W ARTIFIC MENOPAUSE (59) Upper respiratory infection (60) Urinary symptom or sign Surgical Problems: (1) H/O: hysterectomy (2) H/O: hysterectomy (3) H/O: hysterectomy (4) S/P cholecystectomy Family History Cancer Cancer Diabetes mellitus Gallbladder disease Gallbladder disease Heart disease Hypertension Kidney disease Kidney stones Social History Smoking Status: Former Smoker Alcohol Use: none Drug Use: none Marital Status: Housing Status: lives with family Occupation Status: employed Current/Historical Medications Scheduled PRN Ibuprofen Tab (Advil), 400-600 MG PO Q6H PRN for Pain Sumatriptan Succinate (Imitrex), 100 MG PO UD PRN for Migraine Topiramate (Topamax ), 25 MG PO DAILY PRN for Migraine Allergies Coded Allergies: Diphenhydramine (Verified Allergy, Severe, ANAPHYLAXIS, 10/15/16) Shellfish (Verified Allergy, Mild, THROAT SWELLS, 10/15/16) Iodinated Contrast Media (Verified Allergy, Unknown, IVP DYE, 10/15/16) Iodine (Verified Allergy, Unknown, RXN TO IVP DYE, 10/15/16) SHELLFISH Penicillins (Verified Allergy, Unknown, HIVES/EDEMA, 10/15/16) Prochlorperazine (Verified Adverse Reaction, Intermediate, DRY MOUTH, AGITATED, 10/15/16) Physical Exam Vital Signs Date Time Temp Pulse Resp B/P (MAP) Pulse Ox O2 Delivery O2 Flow Rate FiO2 01/03/17 21:58 92 20 158/85 98 01/03/17 20:08 94 20 135/78 99 Room Air 01/03/17 19:15 97 01/03/17 19:10 98 24 147/70 100 Room Air 01/03/17 19:08 95 26 01/03/17 19:05 147/70 01/03/17 19:03 100 16 01/03/17 18:58 97 22 01/03/17 18:53 96 29 01/03/17 18:26 122/82 01/03/17 18:24 83 18 120/71 96 Room Air 88 129/81 90 122/82 01/03/17 17:57 96 Room Air 01/03/17 17:09 36.9 97 18 143/92 97 Room Air Physical Exam GENERAL: Patient is a healthy-appearing well-nourished [] HEAD: Normocephalic atraumatic EYES: Ocular movements intact pupils equal and react to light OROPHARYNX mucous membranes are moist no exudates present no erythema or edema present NECK: Supple no nuchal rigidity CHEST: Good equal expansion LUNGS: Clear and equal to auscultation CARDIAC: Normal S1 and S2 ABDOMEN: Soft nontender no guarding BACK: No CVA tenderness EXTREMITIES: No pain upon palpation normal muscle strength in all groups no clubbing cyanosis or edema NEURO: Patient is following commands and answering questions appropriately. Alert and oriented x3 Cranial Nerves 2-12 grossly intact Medical Decision & Procedures ER Provider Diagnostic Interpretation: Radiology results as stated below per my review and radiologist interpretation: CHEST ONE VIEW PORTABLE CLINICAL HISTORY: Pt c/o SOB dyspnea COMPARISON STUDY: 07/04/2016 FINDINGS: The bones soft tissues and hemidiaphragms are normal. The cardiomediastinal silhouette is normal. The lungs are clear. The pulmonary vasculature is normal. IMPRESSION: Negative chest. The above report was generated using voice recognition software. It may contain grammatical, syntax or spelling errors. Electronically signed by: Maximo Dobbins M.D. 01/03/2017 5:56 PM Dictated Date/Time: 01/03/2017 5:56 PM (CHEST FOR PE) ANGIO WITH CT DOSE: 1448.95 mGy.cm HISTORY: Chest pain dyspnea TECHNIQUE: Multiaxial CT images of the chest were performed following the intravenous administration of contrast to evaluate the pulmonary arteries. Maximal intensity projection images were also obtained. COMPARISON STUDY: None. FINDINGS: There is a normal caliber thoracic aorta with no evidence for dissection. There is no evidence for pulmonary embolus. No pleural effusions. No pneumothorax. The liver and spleen are unremarkable. No mediastinal or hilar lymphadenopathy. The central airways are patent. The lungs are clear. IMPRESSION: No evidence for pulmonary embolus. Lungs are clear. The above report was generated using voice recognition software. It may contain grammatical, syntax or spelling errors. Electronically signed by: Maximo Dobbins M.D. 01/03/2017 8:43 PM Dictated Date/Time: 01/03/2017 8:41 PM Laboratory Results 01/03/17 18:00 Red Blood Count 4.70, Mean Corpuscular Volume 86.6, Mean Corpuscular Hemoglobin 31.3, Mean Corpuscular Hemoglobin Concent 36.1, Mean Platelet Volume 9.9, Neutrophils (%) (Auto) 62.5, Lymphocytes (%) (Auto) 27.3, Monocytes (%) (Auto) 8.3, Eosinophils (%) (Auto) 1.5, Basophils (%) (Auto) 0.2, Neutrophils # (Auto) 5.34, Lymphocytes # (Auto) 2.34, Monocytes # (Auto) 0.71, Eosinophils # (Auto) 0.13, Basophils # (Auto) 0.02 01/03/17 18:00 Test 01/03/17 18:00 01/03/17 18:10 01/03/17 18:19 White Blood Count 8.56 K/uL (4.8-10.8) Red Blood Count 4.70 M/uL (4.2-5.4) Hemoglobin 14.7 g/dL (12.0-16.0) Hematocrit 40.7 % (37-47) Mean Corpuscular Volume 86.6 fL (80-100) Mean Corpuscular Hemoglobin 31.3 pg (25-34) Mean Corpuscular Hemoglobin Concent 36.1 g/dl (32-36) Platelet Count 217 K/uL (130-400) Mean Platelet Volume 9.9 fL (7.4-10.4) Neutrophils (%) (Auto) 62.5 % Lymphocytes (%) (Auto) 27.3 % Monocytes (%) (Auto) 8.3 % Eosinophils (%) (Auto) 1.5 % Basophils (%) (Auto) 0.2 % Neutrophils # (Auto) 5.34 K/uL (1.4-6.5) Lymphocytes # (Auto) 2.34 K/uL (1.2-3.4) Monocytes # (Auto) 0.71 K/uL (0.11-0.59) Eosinophils # (Auto) 0.13 K/uL (0-0.5) Basophils # (Auto) 0.02 K/uL (0-0.2) RDW Standard Deviation 39.4 fL (36.4-46.3) RDW Coefficient of Variation 12.3 % (11.5-14.5) Immature Granulocyte % (Auto) 0.2 % Immature Granulocyte # (Auto) 0.02 K/uL (0.00-0.02) Est Creatinine Clear Calc Drug Dose 125.3 ml/min Estimated GFR () 97.9 Estimated GFR (Non- 84.5 BUN/Creatinine Ratio 15.9 (10-20) Calcium Level 8.9 mg/dl (8.5-10.1) Total Bilirubin 0.3 mg/dl (0.2-1) Direct Bilirubin < 0.1 mg/dl (0-0.2) Aspartate Amino Transf (AST/SGOT) 16 U/L (15-37) Alanine Aminotransferase (ALT/SGPT) 18 U/L (12-78) Alkaline Phosphatase 116 U/L (45-117) Total Creatine Kinase 48 U/L (26-192) Creatine Kinase MB < 0.5 ng/ml (0.5-3.6) Creatine Kinase MB Ratio (0-3.0) Troponin I < 0.015 ng/ml (0-0.045) Total Protein 7.0 gm/dl (6.4-8.2) Albumin 3.7 gm/dl (3.4-5.0) Thyroid Stimulating Hormone (TSH) 1.640 uIu/ml (0.300-4.500) Urine Color DK YELLOW Urine Appearance TURBID (CLEAR) Urine pH 5.5 (4.5-7.5) Urine Specific [place] 1.034 (1.000-1.030) Urine Protein NEG (NEG) Urine Glucose (UA) NEG (NEG) Urine Ketones TRACE (NEG) Urine Occult Blood NEG (NEG) Urine Nitrite NEG (NEG) Urine Bilirubin NEG (NEG) Urine Urobilinogen NEG (NEG) Urine Leukocyte Esterase NEG (NEG) Urine WBC (Auto) 1-5 /hpf (0-5) Urine RBC (Auto) 0-4 /hpf (0-4) Urine Hyaline Casts (Auto) 1-5 /lpf (0-5) Urine Epithelial Cells (Auto) >30 /lpf (0-5) Urine Bacteria (Auto) NEG (NEG) Bedside Hemoglobin 14.3 g/dl (12.0-16.0) Bedside Hematocrit 42 % (37-47) Bedside Sodium 143 mEq/L (135-144) Bedside Potassium 4.2 mEq/L (3.3-5.0) Bedside Chloride 109 mEq/L (101-112) Bedside Total CO2 26 mEq/l (24-31) Anion Gap 14.0 mmol/L (16-25) Bedside Blood Urea Nitrogen 14 mg/dl (7-18) Bedside Creatinine 0.7 mg/dl (0.6-1.3) Bedside Glucose (other) 89 mg/dl (70-99) Bedside Ionized Calcium (Timothy) 1.11 mmol/l (1.12-1.32) Labs reviewed by ED physician. Medications Administered Medications (Trade) Dose Ordered Sig/Afshin Route Start Time Stop Time Status Last Admin Dose Admin Sodium Chloride 1,000 ml @ 999 mls/hr Q1H1M STAT IV 01/03/17 17:29 01/03/17 18:29 DC 01/03/17 18:28 999 MLS/HR Albuterol/ Ipratropium (Duoneb) 12 ml ONE ONCE INH 01/03/17 17:30 01/03/17 17:32 DC 01/03/17 18:27 12 ML Diphenhydramine HCl (Benadryl Inj) 50 mg NOW STAT IV 01/03/17 18:56 01/03/17 18:57 DC 01/03/17 19:05 50 MG Methylprednisolone Sodium Succinate (Solu-Medrol IV) 125 mg NOW STAT IV 01/03/17 18:56 01/03/17 18:57 DC 01/03/17 19:05 125 MG Ranitidine HCl (zANTac IV) 50 mg NOW STAT IV 01/03/17 18:56 01/03/17 18:57 DC 01/03/17 19:05 50 MG ECG Indication: syncope Rate (beats per minute): 89 Rhythm: normal sinus Findings: no acute ischemic change, no ectopy ED Course 1714: Past medical records reviewed. The patient was evaluated in room C12B. A complete history and physical examination was performed. 1729: Ordered NSS 1000 ml @ 999 mls/hr IV. 1729: Ordered Duoneb 12 ml INH. 1855: Ordered Ranitidine HCl 50 mg IV, Solu-Medrol IV 125 mg IV, Benadryl Inj 50 mg IV. 2132: Upon reexamination the patient is resting comfortably. I discussed results and treatment plan with the patient. She verbalizes agreement and understanding. The patient is ready for discharge. Medical Decision Medication Reconciliation: I attest that I have personally reviewed the patient' s current medication list Blood Pressure Screening: Patient was found to have an elevated blood pressure and was referred to their primary care doctor for recheck and further treatment Differential diagnosis: Etiologies such as vasovagal event, infection, hypoglycemia, electrolyte abnormalities, cardiac sources, intracerebral event, toxicologic, neurologic, as well as others were entertained. This is a 36-year-old female who presents emergency department complaining of syncope. The patient is concerned that she has a blood clot in her chest as she has had this in the past. She does have an elevation in her d-dimer however she was sent for CAT scan of the chest and premedicated using Solu- Medrol Benadryl and Zantac. This did not reveal any evidence of a PE. The patient is dehydrated and has ketones in her urine and I believe this is the reason why she keeps passing out. I recommended that the patient follow-up with her primary care physician. Patient was in agreement with treatment plan. Impression Primary Impression: Syncope Scribe Attestation The scribe's documentation has been prepared under my direction and personally reviewed by me in its entirety. I confirm that the note above accurately reflects all work, treatment, procedures, and medical decision making performed by me. Departure Information Dispostion Home / Self-Care Referrals Cole Nicolas M.D. (PCP) Forms HOME CARE DOCUMENTATION FORM, IMPORTANT VISIT INFORMATION Patient Instructions My [facility] Additional Instructions You were found to have an elevated blood pressure today (>120 sytolic or >90 diastolic). Per medicare guidelines, you need to follow up with this blood pressure screening with your Primary Care Physician (PCP). For a new PCP call [phone]. Increase fluids next 48 hours You have been examined and treated today on an emergency basis only. This is not a substitute for, or an effort to provide, complete comprehensive medical care. It is impossible to recognize and treat all injuries or illnesses in a single emergency department visit. It is therefore important that you follow up closely with Dr Nicolas. Call as soon as possible for an appointment. Thank you for your time and consideration. I look forward to speaking with you again soon. Please don't hesitate to call us if you have any questions. Problem Qualifiers Primary Impression: Syncope Syncope type: unspecified Qualified Codes: R55 - Syncope and collapse
[2017-01-03 18:41] LABS: URINE APPEARANCE TURBID (CLEAR); URINE BILIRUBIN NEG (NEG); URINE COLOR DK YELLOW; URINE EPITHELIAL CELL AUTO >30 /lpf (0-5); URINE NITRITE NEG (NEG); URINE PH 5.5 (4.5-7.5); URINE SPECIFIC GRAVITY 1.034 (1.000-1.030); UROBILINOGEN NEG (NEG)
[2017-01-03 18:44] LABS: MANUAL MICROSCOPIC REQUIRED? NO; REVIEW REQ? NO
[2017-01-03 18:48] LABS: ALT/SGPT 18 U/L (12-78); AST/SGOT 16 U/L (15-37); BLOOD UREA NITROGEN 14 mg/dl (7-18); BUN/CREATININE RATIO 15.9 (10-20); CALCIUM 8.9 mg/dl (8.5-10.1); CARBON DIOXIDE 26 mmol/L (21-32); CHLORIDE 112 mmol/L (98-107); CREATININE 0.87 mg/dl (0.60-1.20); GLUCOSE 90 mg/dl (70-99); POTASSIUM 4.1 mmol/L (3.5-5.1); SODIUM 145 mmol/L (136-145)
[2017-01-03] MEDS ORDERED: METHYLPREDNISOLONE 125 MG VIAL IV STA (18:56)
[2017-01-03] MEDS ORDERED: RANITIDINE HCL 50 MG/100 ML D5W IV STA (18:56)
[2017-01-03] MEDS ORDERED: DiphenhydrAMINE HCL 50 MG/ML VIAL IV STA (18:56)
[2017-01-03 19:07] LABS: ALKALINE PHOSPHATASE 116 U/L (45-117)
[2017-01-03] MEDS ORDERED: OPTIRAY 320 IV PRN (19:15)
--- NOTE | 2017-01-03 20:45 | DIAGNOSTIC IMAGING REPORT ---
(CHEST FOR PE) ANGIO WITH CT DOSE: 1448.95 mGy.cm HISTORY: Chest pain dyspnea TECHNIQUE: Multiaxial CT images of the chest were performed following the intravenous administration of contrast to evaluate the pulmonary arteries. Maximal intensity projection images were also obtained. COMPARISON STUDY: None. FINDINGS: There is a normal caliber thoracic aorta with no evidence for dissection. There is no evidence for pulmonary embolus. No pleural effusions. No pneumothorax. The liver and spleen are unremarkable. No mediastinal or hilar lymphadenopathy. The central airways are patent. The lungs are clear. IMPRESSION: No evidence for pulmonary embolus. Lungs are clear. The above report was generated using voice recognition software. It may contain grammatical, syntax or spelling errors. Electronically signed by: Maximo Dobbins M.D. 01/03/2017 8:43 PM Dictated Date/Time: 01/03/2017 8:41 PM
[2017-01-03 21:58] VITALS: BP 158/85; PULSE 92; O2SAT 98
== END 2017-01-03 21:59 | disposition home or self-care (01) ==
LOC: C.EDB 17:04 → C.EDC 21:59
DX: R55 Syncope and collapse (principal); E11.9 Type 2 diabetes mellitus without complications; J45.909 Unspecified asthma, uncomplicated; K21.9 Gastro-esophageal reflux disease without esophagitis; K58.9 Irritable bowel syndrome, unspecified; Z87.19 Personal history of other diseases of the digestive system; Z86.19 Personal history of other infectious and parasitic diseases; Z87.828 Personal history of other (healed) physical injury and trauma; Z87.440 Personal history of urinary (tract) infections; Z90.710 Acquired absence of both cervix and uterus; Z90.49 Acquired absence of other specified parts of digestive tract; Z87.891 Personal history of nicotine dependence; Z88.0 Allergy status to penicillin; Z88.2 Allergy status to sulfonamides; Z88.8 Allergy status to other drugs, medicaments and biological substances; Z91.018 Allergy to other foods; Z91.041 Radiographic dye allergy status; Z80.9 Family history of malignant neoplasm, unspecified; Z83.3 Family history of diabetes mellitus; Z83.79 Family history of other diseases of the digestive system; Z82.49 Family history of ischemic heart disease and other diseases of the circulatory system; Z84.1 Family history of disorders of kidney and ureter

== ENCOUNTER 2017-02-20 14:43 | Emergency (ER) | payer OTHER ==
[~2017-02-20] VITALS: Ht 175.3 cm; Wt 118.8 kg
[~2017-02-20 14:43] MED LIST changes: -ALBINS/ INH; -CALC500C3 PO; +IBUP-103 PO; -NAPR1TAB9 PO; -OXYC-57 PO; -TRAM-10 PO
[2017-02-20 14:50] VITALS: TEMP 37; Ht 175.3 cm; Wt 118.8 kg
[2017-02-20] MEDS ORDERED: KETOROLAC TROMETHAMINE 60 MG/2 ML VIAL IM STA (14:59)
[2017-02-20] MEDS ORDERED: KETOROLAC TROMETHAMINE 30 MG/ML VIAL ONE (15:18)
[2017-02-20] MEDS ORDERED: ZLF/50 PO (15:38)
--- NOTE | 2017-02-20 15:57 | DIAGNOSTIC IMAGING REPORT ---
LUMBAR SPINE WITHOUT CLINICAL HISTORY: 36 years-old Female presenting with low back pain. TECHNIQUE: Multidetector CT of the lumbar spine was performed without the use of intravenous contrast. IV contrast: None. A dose lowering technique was used consistent with the principles of ALARA (as low as reasonably achievable). COMPARISON: Comparison made to CT of the abdomen and pelvis from 04/12/2016. CT DOSE (mGy.cm): The estimated cumulative dose is 1975.74 mGy.cm. FINDINGS: [employer] topogram: Cholecystectomy clips noted. Normal lumbar lordosis. Vertebral bodies maintain normal height and alignment. Intervertebral disc spaces preserved. No significant degenerative change. No scoliosis. No osseous neural foraminal. Minimal disc bulges may be present from L2-3 through L5-S1 without significant spinal canal narrowing. No acute fracture or subluxation. Paraspinal soft tissues normal. IMPRESSION: 1. No acute osseous injury of the lumbar spine. 2. Minimal degenerative changes evidenced by disc bulges from L2-3 through L5-S1. No osseous changes. No significant spinal canal or neural foraminal narrowing. Electronically signed by: Ezequiel Ford M.D. 02/20/2017 3:56 PM Dictated Date/Time: 02/20/2017 3:53 PM
--- NOTE | 2017-02-20 17:21 | EMERGENCY ROOM VISIT NOTE ---
History Report prepared by Bel: Mookie Garza Under the Supervision of: Gloria StarksO. First contact with patient: 14:55 Chief Complaint: BACK PAIN Stated Complaint: BACK PAIN History of Present Illness The patient is a 36 year old female who presents to the Emergency Room with complaints of worsening back pain starting this morning. The patient states that the pain started in her hip, and has moved to her low back and her legs. She states that she pain is worse with standing up. She states that she has chronic hip pain with her RA, though it is usually not this bad. The patient denies any abdominal pain, and she has been having diarrhea. She additionally denies any recent traumas to her back, and she did not sleep anywhere different than usual. She did not do anything abnormally physical yesterday as well. Source of History: patient Onset: this morning Position: back (lower) Timing: worsening Modifying Factors (Worsening): other (standing) Associated Symptoms: + diarrhea, No abdominal pain Note: Associated symptoms: leg pain and hip pain Review of Systems See HPI for pertinent positives & negatives. A total of 10 systems reviewed and were otherwise negative. Past Medical & Surgical Medical Problems: (1) Abdominal pain (2) Abdominal pain (3) Abdominal pain (4) Abdominal pain (5) Abdominal pain (6) Abdominal pain (7) Acute bronchitis (8) Asthma (9) Back strain (10) Biliary dyskinesia (11) Bronchitis (12) Cellulitis (13) Cellulitis (14) Cellulitis (15) Chest pain (16) Chest pain (17) Chronic headache (18) Chronic headache (19) Chronic low back pain (20) Costochondral pain (21) Costochondritis (22) Dehydration (23) Dehydration (24) DIAB SOFY WO COMPL, TYPE II OR UNSPEC TYPE, NOT UNCNTRLD (25) Diabetes (26) Diabetes mellitus (27) Diarrhea (28) ESOPHAGEAL REFLUX (29) Esophageal Reflux (30) Exacerbation of chronic back pain (31) Exacerbation of chronic back pain (32) Forearm contusion (33) Gastritis (34) Gastritis (35) Headache (36) Headache (37) Hip pain (38) Hx of blood clots (39) Insect bite (40) Insect bite (41) Irritable Bowel Syndrome (42) Joint pain (43) Left sided numbness (44) Leg pain (45) Low back pain (46) Nausea & vomiting (47) Neurological complaint (48) Palpitations (49) Pleurisy (50) Post-tussive emesis (51) Rheumatoid arteritis (52) Rheumatoid arteritis (53) Right ankle sprain (54) Right lumbar radiculopathy (55) Right lumbar radiculopathy (56) Sinusitis (57) SOB (shortness of breath) (58) SYMPT STATES ASSOC W ARTIFIC MENOPAUSE (59) Upper respiratory infection (60) Urinary symptom or sign Surgical Problems: (1) H/O: hysterectomy (2) H/O: hysterectomy (3) H/O: hysterectomy (4) S/P cholecystectomy Family History Cancer Cancer Diabetes mellitus Gallbladder disease Gallbladder disease Heart disease Hypertension Kidney disease Kidney stones Social History Smoking Status: Former Smoker Alcohol Use: none Drug Use: none Marital Status: Housing Status: lives with family Occupation Status: employed Current/Historical Medications Scheduled Sertraline HCl (Sertraline HCl), 50 MG PO QPM Scheduled PRN Ibuprofen Tab (Advil), 400-600 MG PO Q6H PRN for Pain Sumatriptan Succinate (Imitrex), 100 MG PO UD PRN for Migraine Allergies Coded Allergies: Diphenhydramine (Verified Allergy, Severe, ANAPHYLAXIS, 02/20/17) Shellfish (Verified Allergy, Mild, THROAT SWELLS, 02/20/17) Iodinated Contrast Media (Verified Allergy, Unknown, IVP DYE, 02/20/17) Iodine (Verified Allergy, Unknown, RXN TO IVP DYE, 02/20/17) SHELLFISH Penicillins (Verified Allergy, Unknown, HIVES/EDEMA, 02/20/17) Prochlorperazine (Verified Adverse Reaction, Intermediate, DRY MOUTH, AGITATED, 02/20/17) Physical Exam Vital Signs Date Time Temp Pulse Resp B/P (MAP) Pulse Ox O2 Delivery O2 Flow Rate FiO2 02/20/17 16:06 71 20 126/68 97 Room Air 02/20/17 14:50 37.0 60 20 134/92 98 Room Air Physical Exam CONSTITUTIONAL/VITAL SIGNS: Reviewed / noted above. GENERAL: Non-toxic in appearance. INTEGUMENTARY: Warm, dry, and [place]. HEAD: Normocephalic. EYES: without scleral icterus or trauma. ENT/OROPHARYNX: clear and moist. LYMPHADENOPATHY/NECK: Is supple without lymphadenopathy or meningismus. RESPIRATORY: Lungs clear and equal. CARDIOVASCULAR: Regular rate and rhythm. GI/ABDOMEN: Soft and nontender. No organomegaly or pulsatile mass. No rebound or guarding. Normal bowel sounds. EXTREMITIES: Warm and well perfused. BACK: Tenderness to palpation of the upper mid lumbar region. No CVA tenderness. NEUROLOGICAL: Intact without focal deficits. PSYCHIATRIC: normal affect. MUSCULOSKELETAL: Normally developed with good muscle tone. Medical Decision & Procedures ER Provider Diagnostic Interpretation: Radiology results as stated below per my review and radiologist interpretation: LUMBAR SPINE WITHOUT CLINICAL HISTORY: 36 years-old Female presenting with low back pain. TECHNIQUE: Multidetector CT of the lumbar spine was performed without the use of intravenous contrast. IV contrast: None. A dose lowering technique was used consistent with the principles of ALARA (as low as reasonably achievable). COMPARISON: Comparison made to CT of the abdomen and pelvis from 04/12/2016. CT DOSE (mGy.cm): The estimated cumulative dose is 1975.74 mGy.cm. FINDINGS: It Auditor topogram: Cholecystectomy clips noted. Normal lumbar lordosis. Vertebral bodies maintain normal height and alignment. Intervertebral disc spaces preserved. No significant degenerative change. No scoliosis. No osseous neural foraminal. Minimal disc bulges may be present from L2-3 through L5-S1 without significant spinal canal narrowing. No acute fracture or subluxation. Paraspinal soft tissues normal. IMPRESSION: 1. No acute osseous injury of the lumbar spine. 2. Minimal degenerative changes evidenced by disc bulges from L2-3 through L5-S1. No osseous changes. No significant spinal canal or neural foraminal narrowing. Electronically signed by: Ezequiel Ford M.D. 02/20/2017 3:56 PM Dictated Date/Time: 02/20/2017 3:53 PM Medications Administered Medications (Trade) Dose Ordered Sig/[facility] Route Start Time Stop Time Status Last Admin Dose Admin Ketorolac Tromethamine (Toradol Inj) 30 mg STK-MED ONCE .ROUTE 02/20/17 15:18 02/20/17 15:19 DC 02/20/17 15:21 30 MG ED Course 1455: Previous medical records were reviewed. The patient was evaluated in room C9. A complete history and physical examination was performed. 1518: Toradol Inj 30mg IM 1722: On reevaluation, the patient is doing well. I discussed the results and findings with the patient. She verbalized agreement of the treatment plan. She was discharged home. Medical Decision Differential considered includes cauda equina syndrome, conus medullaris, spinal cord compression syndrome, peripheral nerve compression, fractures or subluxations, intra-abdominal pathology such as abdominal aortic aneurysm or kidney stones, muscle strain, transverse myelitis, spinal cord injury. This is a 28-year-old female who presents to the ED with chief complaint of low back pain. The patient states that she awoke with it this morning. She denies any specific trauma. She denies any recent activities that would predispose her to back pain. She denies any abdominal pain, urinary symptoms or fevers. Denies any weakness or sensory changes. Denies any bowel or bladder dysfunction. Her pain is increased with movement and certain activities. Her physical exam was unremarkable with exception of some tenderness to the upper lumbar region in the midline. There is no rashes. She has normal lower extremity reflexes and sensorimotor function. A CT scan of her lumbar spine did not show any significant abnormalities. She does have some DJD and small disc bulges but nothing significant. The patient was told the results. She is felt to be stable for discharge and outpatient follow-up. She was treated with IV Toradol here. Medication Reconcilliation Current Medication List: was personally reviewed by me Blood Pressure Screening Patient's blood pressure: Normal blood pressure Impression Primary Impression: Low back pain Scribe Attestation The scribe's documentation has been prepared under my direction and personally reviewed by me in its entirety. I confirm that the note above accurately reflects all work, treatment, procedures, and medical decision making performed by me. Departure Information Dispostion Home / Self-Care Referrals Cole Nicolas M.D. (PCP) Forms HOME CARE DOCUMENTATION FORM, IMPORTANT VISIT INFORMATION Patient Instructions Back Pain - [facility], Low Back Pain Self Care, [facility] Additional Instructions Follow-up with your doctor for further care and evaluation in 1-2 days. Return to the emergency department for worsening or new symptoms or any concerns. You have been examined and treated today on an emergency basis only. This is not a substitute for, or an effort to provide, complete comprehensive medical care. It is impossible to recognize and treat all injuries or illnesses in a single emergency department visit. It is therefore important that you follow up closely with your doctor. Call as soon as possible for an appointment.
[2017-02-20 18:00] VITALS: BP 120/70; PULSE 70; O2SAT 98
== END 2017-02-20 18:02 | disposition home or self-care (01) ==
LOC: EDBD 14:43 → C.EDC 14:44
DX: M54.5 Low back pain (principal); G89.29 Other chronic pain; M06.9 Rheumatoid arthritis, unspecified; J45.909 Unspecified asthma, uncomplicated; E11.9 Type 2 diabetes mellitus without complications; K21.9 Gastro-esophageal reflux disease without esophagitis; K29.70 Gastritis, unspecified, without bleeding; Z86.718 Personal history of other venous thrombosis and embolism; K58.9 Irritable bowel syndrome, unspecified; Z80.9 Family history of malignant neoplasm, unspecified; Z83.3 Family history of diabetes mellitus; Z83.79 Family history of other diseases of the digestive system; Z82.49 Family history of ischemic heart disease and other diseases of the circulatory system; Z84.1 Family history of disorders of kidney and ureter; Z87.891 Personal history of nicotine dependence; Z79.899 Other long term (current) drug therapy

== ENCOUNTER 2017-06-20 13:36 | Emergency (ER) | payer OTHER ==
[~2017-06-20] VITALS: Ht 175.3 cm; Wt 110.7 kg
[~2017-06-20 13:36] MED LIST changes: +ASPI-390; -SUMA100T16 PO; -TOPI25TA99 PO; +TOPI50TA16 PO; +ZLF/50 PO
[2017-06-20 13:49] VITALS: TEMP 36.8; Ht 175.3 cm; Wt 110.7 kg
[2017-06-20] MEDS ORDERED: SODIUM CHLORIDE 0.9% 1000ML 2,000 ML IV STA (14:09)
[2017-06-20] MEDS ORDERED: MoRPHine SULFATE 10 MG/ML CARP/VIAL IV STA (14:09)
[2017-06-20] MEDS ORDERED: ONDANSETRON INJ 2 MG/ML 2 ML VIAL IV STA (14:09)
[2017-06-20 14:52] LABS: BASO % 0.3 %; BASO ABS # 0.02 K/uL (0-0.2); EOS % 1.6 %; EOS ABS # 0.11 K/uL (0-0.5); HEMATOCRIT 41.7 % (37-47); IG# 0.02 K/uL (0.00-0.02); LYMPH % 25.3 %; LYMPH ABS # 1.77 K/uL (1.2-3.4); MEAN CELL VOLUME 88.2 fL (80-100); MEAN CORPUSCULAR HEMOGLOBIN 31.7 pg (25-34); MONO % 5.3 %; MONO ABS # 0.37 K/uL (0.11-0.59); NEUT % 67.2 %; NEUT ABS # 4.71 K/uL (1.4-6.5); PLATELET COUNT 179 K/uL (130-400); RED CELL DISTRIBUTION WIDTH CV 12.6 % (11.5-14.5); RED CELL DISTRIBUTION WIDTH SD 40.8 fL (36.4-46.3)
--- NOTE | 2017-06-20 15:13 | DIAGNOSTIC IMAGING REPORT ---
ABD/PELVIS NO IV OR ORAL CONT CLINICAL HISTORY: 36 years-old Female presenting with r mid abd pain ayaka after eating previous alexandra. TECHNIQUE: Multidetector CT of the abdomen and pelvis was performed without the use of intravenous contrast. IV contrast: None. A dose lowering technique was used consistent with the principles of ALARA (as low as reasonably achievable). COMPARISON: 04/12/2016. CT DOSE (mGy.cm): The estimated cumulative dose is 1292.74 mGy.cm. 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 Lung bases: Minimal basilar opacities, likely atelectasis. Normal heart size. No pericardial or pleural effusion. Liver: Normal morphology. Density consistent with hepatic steatosis. Hypodensity in the right hepatic lobe, indeterminate but likely hepatic cyst. Biliary: Mild biliary ductal prominence likely a reservoir effect in the post cholecystectomy state. Gallbladder surgically absent. Pancreas: Normal noncontrast appearance. Spleen: Normal noncontrast appearance. Adrenal glands: Normal noncontrast appearance. Kidneys and ureters: Normal noncontrast appearance. No nephrolithiasis. No hydronephrosis. Normal ureters. Bladder: Incompletely evaluated secondary to underdistention. Pelvic organs: Uterus surgically absent. No adnexal masses. Bowel: Normal appendix. No bowel obstruction. Peritoneal cavity: No free fluid or intraperitoneal gas. Lymph nodes: No gross lymphadenopathy allowing for noncontrast technique. Vasculature: Normal noncontrast appearance. Abdominal wall: Small fat-containing umbilical hernia. Musculoskeletal: Normal. IMPRESSION: 1. Hepatic steatosis. Correlate with liver function enzymes to exclude steatohepatitis as a cause for abdominal pain. Electronically signed by: Ezequiel Ford M.D. 06/20/2017 3:12 PM Dictated Date/Time: 06/20/2017 3:07 PM
[2017-06-20 15:15] LABS: ALBUMIN 3.7 gm/dl (3.4-5.0); AST/SGOT 20 U/L (15-37); BLOOD UREA NITROGEN 14 mg/dl (7-18); CALCIUM 8.8 mg/dl (8.5-10.1); CARBON DIOXIDE 24 mmol/L (21-32); CREATININE 0.82 mg/dl (0.60-1.20); GLUCOSE 141 mg/dl (70-99); LIPASE 89 U/L (73-393); POTASSIUM 3.6 mmol/L (3.5-5.1); SODIUM 138 mmol/L (136-145)
[2017-06-20 15:18] LABS: ALKALINE PHOSPHATASE 99 U/L (45-117); ALT/SGPT 18 U/L (12-78); TOTAL PROTEIN 7.2 gm/dl (6.4-8.2)
[2017-06-20 15:28] VITALS: BP 132/81; PULSE 74; O2SAT 98
--- NOTE | 2017-06-20 19:56 | EMERGENCY ROOM VISIT NOTE ---
History Report prepared by Bel: Ashanti Masters Under the Supervision of: Dr. Og Martines D.O. First contact with patient: 13:53 Chief Complaint: ABDOMINAL PAIN Stated Complaint: RIGHT SIDED ABDOMINAL PAIN Nursing Triage Summary: patient c/o right lower abdominal pain after every meal x 1 week. patient also c/o diarrhea History of Present Illness The patient is a 36 year old female who presents to the Emergency Room with complaints of persistent abdominal pain that began one week ago. The patient states that the pain begins in her belly button and radiates to her lower right side. She states that her pain feels like when she has had gall stones in the past, noting she had a cholecystectomy. The patient states that her pain worsens when she eats, noting she has diarrhea every time she tries to eat. She notes she has been having a lot of indigestion lately. The patient states that 4 days ago she had a bloody stool. She notes she had a full hysterectomy in the past. Pt denies headache, change in vision, fevers, chest pain, shortness of breath, nausea, vomiting, pain with urination, and melena. Patient denies swelling of calves, recent trips, history of immobilization or recent surgery, prior history of DVT, hemoptysis, history of malignancy, history of smoking, or control/estrogen use. Source of History: patient Onset: one week ago Position: abdomen Quality: other (abdominal pain) Timing: other (persistent) Associated Symptoms: + diarrhea Review of Systems See HPI for pertinent positives & negatives. A total of 10 systems reviewed and were otherwise negative. Past Medical & Surgical Medical Problems: (1) Abdominal pain (2) Abdominal pain (3) Abdominal pain (4) Abdominal pain (5) Abdominal pain (6) Abdominal pain (7) Acute bronchitis (8) Asthma (9) Back strain (10) Biliary dyskinesia (11) Bronchitis (12) Cellulitis (13) Cellulitis (14) Cellulitis (15) Chest pain (16) Chest pain (17) Chronic headache (18) Chronic headache (19) Chronic low back pain (20) Costochondral pain (21) Costochondritis (22) Dehydration (23) Dehydration (24) DIAB SOFY WO COMPL, TYPE II OR UNSPEC TYPE, NOT UNCNTRLD (25) Diabetes (26) Diabetes mellitus (27) Diarrhea (28) ESOPHAGEAL REFLUX (29) Esophageal Reflux (30) Exacerbation of chronic back pain (31) Exacerbation of chronic back pain (32) Forearm contusion (33) Gastritis (34) Gastritis (35) Headache (36) Headache (37) Hip pain (38) Hx of blood clots (39) Insect bite (40) Insect bite (41) Irritable Bowel Syndrome (42) Joint pain (43) Left sided numbness (44) Leg pain (45) Low back pain (46) Nausea & vomiting (47) Neurological complaint (48) Palpitations (49) Pleurisy (50) Post-tussive emesis (51) Rheumatoid arteritis (52) Rheumatoid arteritis (53) Right ankle sprain (54) Right lumbar radiculopathy (55) Right lumbar radiculopathy (56) Sinusitis (57) SOB (shortness of breath) (58) SYMPT STATES ASSOC W ARTIFIC MENOPAUSE (59) Upper respiratory infection (60) Urinary symptom or sign Surgical Problems: (1) H/O: hysterectomy (2) H/O: hysterectomy (3) H/O: hysterectomy (4) S/P cholecystectomy Family History Cancer Cancer Diabetes mellitus Gallbladder disease Gallbladder disease Heart disease Hypertension Kidney disease Kidney stones Social History Smoking Status: Never Smoker Alcohol Use: none Drug Use: none Marital Status: Housing Status: lives with family Occupation Status: employed Current/Historical Medications Scheduled Sertraline HCl (Sertraline HCl), 50 MG PO QPM Topiramate (Topamax), 50 MG PO BID Allergies Coded Allergies: Diphenhydramine (Verified Allergy, Severe, ANAPHYLAXIS, 06/20/17) Shellfish (Verified Allergy, Mild, THROAT SWELLS, 06/20/17) Iodinated Contrast Media (Verified Allergy, Unknown, IVP DYE, 06/20/17) Iodine (Verified Allergy, Unknown, RXN TO IVP DYE, 06/20/17) SHELLFISH Penicillins (Verified Allergy, Unknown, HIVES/EDEMA, 06/20/17) Prochlorperazine (Verified Adverse Reaction, Intermediate, DRY MOUTH, AGITATED, 06/20/17) Physical Exam Vital Signs Date Time Temp Pulse Resp B/P (MAP) Pulse Ox O2 Delivery O2 Flow Rate FiO2 06/20/17 15:28 74 18 132/81 98 Room Air 06/20/17 13:49 36.8 115 20 142/84 97 Room Air Physical Exam GENERAL: Sitting up in bed, holding abdomen, disheveled, alert, well appearing, well nourished, no distress, non-toxic EYE EXAM: normal conjunctiva. OROPHARYNX: dry mucous membranes, no exudate, no erythema, lips, buccal mucosa, and tongue normal NECK: supple, no nuchal rigidity, no adenopathy, non-tender LUNGS: Clear to auscultation. Normal chest wall mechanics HEART: Tachycardic. no murmurs, S1 normal and S2 normal ABDOMEN: Tenderness in right mid quadrant, abdomen soft, normo-active bowel sounds, no masses, no rebound or guarding. BACK: Back is symmetrical on inspection and there is no deformity, no midline tenderness, no CVA tenderness. SKIN: no rashes and no bruising UPPER EXTREMITIES: upper extremities are grossly normal. LOWER EXTREMITIES: No pitting edema. NEURO EXAM: Normal sensorium, cranial nerves II-XII grossly intact, normal speech, no gross weakness of arms, no gross weakness of legs. Medical Decision & Procedures ER Provider Diagnostic Interpretation: Radiology results as stated below per my review and the radiologist's interpretation: ABD/PELVIS NO IV OR ORAL CONT CLINICAL HISTORY: 36 years-old Female presenting with r mid abd pain ayaka after eating previous alexandra. TECHNIQUE: Multidetector CT of the abdomen and pelvis was performed without the use of intravenous contrast. IV contrast: None. A dose lowering technique was used consistent with the principles of ALARA (as low as reasonably achievable). COMPARISON: 04/12/2016. CT DOSE (mGy.cm): The estimated cumulative dose is 1292.74 mGy.cm. FINDINGS: Transport Rn topogram: Cholecystectomy clips. Lung bases: Minimal basilar opacities, likely atelectasis. Normal heart size. No pericardial or pleural effusion. Liver: Normal morphology. Density consistent with hepatic steatosis. Hypodensity in the right hepatic lobe, indeterminate but likely hepatic cyst. Biliary: Mild biliary ductal prominence likely a reservoir effect in the post cholecystectomy state. Gallbladder surgically absent. Pancreas: Normal noncontrast appearance. Spleen: Normal noncontrast appearance. Adrenal glands: Normal noncontrast appearance. Kidneys and ureters: Normal noncontrast appearance. No nephrolithiasis. No hydronephrosis. Normal ureters. Bladder: Incompletely evaluated secondary to underdistention. Pelvic organs: Uterus surgically absent. No adnexal masses. Bowel: Normal appendix. No bowel obstruction. Peritoneal cavity: No free fluid or intraperitoneal gas. Lymph nodes: No gross lymphadenopathy allowing for noncontrast technique. Vasculature: Normal noncontrast appearance. Abdominal wall: Small fat-containing umbilical hernia. Musculoskeletal: Normal. IMPRESSION: 1. Hepatic steatosis. Correlate with liver function enzymes to exclude steatohepatitis as a cause for abdominal pain. Electronically signed by: Ezequiel Ford M.D. 06/20/2017 3:12 PM Dictated Date/Time: 06/20/2017 3:07 PM Laboratory Results 06/20/17 14:30 Red Blood Count 4.73, Mean Corpuscular Volume 88.2, Mean Corpuscular Hemoglobin 31.7, Mean Corpuscular Hemoglobin Concent 36.0, Mean Platelet Volume 10.0, Neutrophils (%) (Auto) 67.2, Lymphocytes (%) (Auto) 25.3, Monocytes (%) (Auto) 5.3, Eosinophils (%) (Auto) 1.6, Basophils (%) (Auto) 0.3, Neutrophils # (Auto) 4.71, Lymphocytes # (Auto) 1.77, Monocytes # (Auto) 0.37, Eosinophils # (Auto) 0.11, Basophils # (Auto) 0.02 06/20/17 14:30 Test 06/20/17 14:15 06/20/17 14:30 Urine Color DK YELLOW Urine Appearance CLEAR (CLEAR) Urine pH 5.0 (4.5-7.5) Urine Specific [place] 1.028 (1.000-1.030) Urine Protein NEG (NEG) Urine Glucose (UA) NEG (NEG) Urine Ketones NEG (NEG) Urine Occult Blood NEG (NEG) Urine Nitrite NEG (NEG) Urine Bilirubin NEG (NEG) Urine Urobilinogen NEG (NEG) Urine Leukocyte Esterase NEG (NEG) Urine WBC (Auto) 1-5 /hpf (0-5) Urine RBC (Auto) 0-4 /hpf (0-4) Urine Hyaline Casts (Auto) 1-5 /lpf (0-5) Urine Epithelial Cells (Auto) >30 /lpf (0-5) Urine Bacteria (Auto) NEG (NEG) Urine Test NEG (NEG) White Blood Count 7.00 K/uL (4.8-10.8) Red Blood Count 4.73 M/uL (4.2-5.4) Hemoglobin 15.0 g/dL (12.0-16.0) Hematocrit 41.7 % (37-47) Mean Corpuscular Volume 88.2 fL (80-100) Mean Corpuscular Hemoglobin 31.7 pg (25-34) Mean Corpuscular Hemoglobin Concent 36.0 g/dl (32-36) Platelet Count 179 K/uL (130-400) Mean Platelet Volume 10.0 fL (7.4-10.4) Neutrophils (%) (Auto) 67.2 % Lymphocytes (%) (Auto) 25.3 % Monocytes (%) (Auto) 5.3 % Eosinophils (%) (Auto) 1.6 % Basophils (%) (Auto) 0.3 % Neutrophils # (Auto) 4.71 K/uL (1.4-6.5) Lymphocytes # (Auto) 1.77 K/uL (1.2-3.4) Monocytes # (Auto) 0.37 K/uL (0.11-0.59) Eosinophils # (Auto) 0.11 K/uL (0-0.5) Basophils # (Auto) 0.02 K/uL (0-0.2) RDW Standard Deviation 40.8 fL (36.4-46.3) RDW Coefficient of Variation 12.6 % (11.5-14.5) Immature Granulocyte % (Auto) 0.3 % Immature Granulocyte # (Auto) 0.02 K/uL (0.00-0.02) Anion Gap 8.0 mmol/L (3-11) Est Creatinine Clear Calc Drug Dose 123.4 ml/min Estimated GFR () 105.2 Estimated GFR (Non- 90.8 BUN/Creatinine Ratio 16.6 (10-20) Calcium Level 8.8 mg/dl (8.5-10.1) Total Bilirubin 0.3 mg/dl (0.2-1) Direct Bilirubin < 0.1 mg/dl (0-0.2) Aspartate Amino Transf (AST/SGOT) 20 U/L (15-37) Alanine Aminotransferase (ALT/SGPT) 18 U/L (12-78) Alkaline Phosphatase 99 U/L (45-117) Total Protein 7.2 gm/dl (6.4-8.2) Albumin 3.7 gm/dl (3.4-5.0) Lipase 89 U/L (73-393) Laboratory results per my review. Medications Administered Medications (Trade) Dose Ordered Sig/Afshin Route Start Time Stop Time Status Last Admin Dose Admin Sodium Chloride 2,000 ml @ 999 mls/hr Q2H1M STAT IV 06/20/17 14:09 06/20/17 16:09 DC 06/20/17 14:46 999 MLS/HR Ondansetron HCl (Zofran Inj) 4 mg NOW STAT IV 06/20/17 14:09 06/20/17 14:11 DC 06/20/17 14:41 4 MG Morphine Sulfate (MoRPHine SULFATE INJ) 6 mg NOW STAT IV 06/20/17 14:09 06/20/17 14:11 DC 06/20/17 14:43 6 MG ED Course ED COURSE: Vital signs were reviewed and showed tachycardic rate. The patients medical record was reviewed The above diagnostic studies were performed and reviewed. ED treatments and interventions as stated above. 1402: The patient was evaluated in room B7. A complete history and physical examination was performed. 1409: Ordered Sodium Chloride 2000ml @ 999mls/hr IV, Zofran Inj 4mg IV, and Morphine Sulfate 6mg IV. 1504: I reevaluated the patient, who was resting. Performed a rectal exam that was heme negative. I discussed my findings with the patient and understands and agrees with the treatment plan. Based on the patients age, coexisting illnesses, exam and lab findings the decision to treat as an outpatient was made. The patient remained stable while under my care. The patient appeared well at the time of discharge. Medical Decision Differential diagnosis: Etiologies such as appendicitis, diverticulitis, PUD, biliary pathology, UTI, pancreatitis, obstruction, mesenteric ischemia, aortic pathology, infections, inflammatory bowel disease, renal colic, as well as others were entertained. The patient is a 36 year old female who presents to the ED with complaints of abdominal pain. Pain is located in the epigastric region. This is present for the past week. It's worse after eating. Following eating she has diarrhea. No recent antibiotics, trips or travel. Previous cholecystectomy. Benign exam. CBC all BMP, LFTs, bilirubin lipase is normal. UA was negative. negative. CT of the abdomen and pelvis was completely benign with the exception of hepatic steatosis. Patient was updated bedside. She is discharged follow-up with PCP. Discussed with Pt concerning signs and symptoms to watch out for. Pt was instructed to follow up with their PCP and discussed with the patient their option to return to the ED at anytime for persistent or worsening symptoms. The appropriate anticipatory guidance and out-patient management, including indications for return to the emergency department, were explained at length to the patient and understood. Medication Reconcilliation Current Medication List: was personally reviewed by me Blood Pressure Screening Patient's blood pressure: Normal blood pressure Impression Primary Impression: Abdominal pain Additional Impression: Diarrhea Scribe Attestation The scribe's documentation has been prepared under my direction and personally reviewed by me in its entirety. I confirm that the note above accurately reflects all work, treatment, procedures, and medical decision making performed by me. Departure Information Dispostion Home / Self-Care Referrals Cole Nicolas M.D. (PCP) Forms Call Back Authorization, HOME CARE DOCUMENTATION FORM, IMPORTANT VISIT INFORMATION Patient Instructions My [facility] Additional Instructions Please follow up with your primary care doctor with in the next 24 hours. Any worsening of your symptoms, please return to the ED immediately. This includes any fevers greater than 100.4, worsening pain, chest pain, shortness breath, persistent nausea, vomiting, unable to eat or drink, or any other concerning signs or symptoms from your standpoint. Problem Qualifiers Primary Impression: Abdominal pain Abdominal location: unspecified location Qualified Codes: R10.9 - Unspecified abdominal pain Additional Impression: Diarrhea Diarrhea type: unspecified type Qualified Codes: R19.7 - Diarrhea, unspecified
[2017-09-04] MEDS ORDERED: SUCR1TAB29 PO (00:34)
[2017-11-12] MEDS ORDERED: PANT1TAB3 PO (07:34)
[2017-11-12] MEDS ORDERED: IBUP600T44 PO (07:35)
[2017-11-12] MEDS ORDERED: VNTHFA/IN INH (07:36)
[2018-01-08] MEDS ORDERED: ACET-1256 PO (08:42)
== END 2017-06-20 16:54 | disposition home or self-care (01) ==
LOC: C.EDB 13:39
DX: R10.9 Unspecified abdominal pain (principal); R19.7 Diarrhea, unspecified; J45.909 Unspecified asthma, uncomplicated; E11.9 Type 2 diabetes mellitus without complications; K21.9 Gastro-esophageal reflux disease without esophagitis; M19.90 Unspecified osteoarthritis, unspecified site; Z83.3 Family history of diabetes mellitus; Z82.49 Family history of ischemic heart disease and other diseases of the circulatory system; K76.0 Fatty (change of) liver, not elsewhere classified

== ENCOUNTER → 2017-06-26 | Outpatient (CLI) | payer OTHER ==
[~2017-06-26] MED LIST changes: +ACET-1256 PO; -ASPI-390; -IBUP-103 PO; +IBUP600T44 PO; +PANT1TAB3 PO; +PRT/20 PO; +RANI150T3 PO; +SUCR1TAB29 PO; +VNTHFA/IN INH
== END | disposition home or self-care (01) ==
LOC: C.LAB 17:27
PROVIDERS: ATTEND Internal Medicine
DX: R19.7 Diarrhea, unspecified (principal)

== ENCOUNTER 2017-09-06 23:21 | Emergency (ER) | payer OTHER ==
[~2017-09-06] VITALS: Ht 175.3 cm; Wt 126.7 kg
[~2017-09-06 23:21] MED LIST changes: -ACET-1256 PO; -IBUP600T44 PO; -PANT1TAB3 PO; -PRT/20 PO; -RANI150T3 PO; -VNTHFA/IN INH
[2017-09-06 23:41] VITALS: TEMP 36.8; Ht 175.3 cm; Wt 126.7 kg
[2017-09-07] MEDS ORDERED: ACETAMINOPHEN 500 MG TAB PO STA (00:06)
[2017-09-07] MEDS ORDERED: RANI150T3 PO (00:34)
[2017-09-07] MEDS ORDERED: PRT/20 PO (00:34)
[2017-09-07 02:16] VITALS: BP 134/76; PULSE 78; O2SAT 97
--- NOTE | 2017-09-07 06:53 | DIAGNOSTIC IMAGING REPORT ---
L KNEE 3 VIEWS CLINICAL HISTORY: Fall. Left knee/ankle injury trauma. Pain. COMPARISON: None. DISCUSSION: The bones and joint spaces appear intact. There is no evidence of fracture, dislocation or bony disease. There is no evidence for soft tissue swelling. IMPRESSION: Negative study. The above report was generated using voice recognition software. It may contain grammatical, syntax or spelling errors. Electronically signed by: Maximo Dobbins M.D. 09/07/2017 6:52 AM Dictated Date/Time: 09/07/2017 6:52 AM
--- NOTE | 2017-09-07 06:53 | DIAGNOSTIC IMAGING REPORT ---
L ANKLE MIN 3 VIEWS ROUTINE CLINICAL HISTORY: Fall. Left knee/ankle injury trauma. Pain. COMPARISON: None. DISCUSSION: The bones and joint spaces appear intact. There is no evidence of fracture, dislocation or bony disease. Moderate soft tissue edema IMPRESSION: Soft tissue edema. No acute bony abnormality. The above report was generated using voice recognition software. It may contain grammatical, syntax or spelling errors. Electronically signed by: Maximo Dobbins M.D. 09/07/2017 6:51 AM Dictated Date/Time: 09/07/2017 6:51 AM
--- NOTE | 2017-09-08 18:55 | EMERGENCY ROOM VISIT NOTE ---
History First contact with patient: 00:00 Chief Complaint: FALL Stated Complaint: L KNEE AND ANKLE PAIN FROM FALL History of Present Illness The patient is a 37 year old female who presents to the Emergency Room with complaints of pain of her left knee and left ankle after falling about 1 hour ago. The patient states that she was walking on a sidewalk in front of the in- laws house, when she fell off the sidewalk, and twisted her knee and ankle. The patient did not strike her head but is now having pain of her left leg. She has not taken anything [id number] for her discomfort which currently is rated a 6/10. Movement worsens her pain. She does not report previous injury to the leg or ankle. Review of Systems More than 10 systems were reviewed and otherwise negative with the exception of history of present illness. Past Medical/Surgical History Medical Problems: (1) Abdominal pain (2) Abdominal pain (3) Abdominal pain (4) Abdominal pain (5) Abdominal pain (6) Abdominal pain (7) Acute bronchitis (8) Asthma (9) Back strain (10) Biliary dyskinesia (11) Bronchitis (12) Cellulitis (13) Cellulitis (14) Cellulitis (15) Chest pain (16) Chest pain (17) Chronic headache (18) Chronic headache (19) Chronic low back pain (20) Costochondral pain (21) Costochondritis (22) Dehydration (23) Dehydration (24) DIAB SOFY WO COMPL, TYPE II OR UNSPEC TYPE, NOT UNCNTRLD (25) Diabetes (26) Diabetes mellitus (27) Diarrhea (28) ESOPHAGEAL REFLUX (29) Esophageal Reflux (30) Exacerbation of chronic back pain (31) Exacerbation of chronic back pain (32) Forearm contusion (33) Gastritis (34) Gastritis (35) Headache (36) Headache (37) Hip pain (38) Hx of blood clots (39) Insect bite (40) Insect bite (41) Irritable Bowel Syndrome (42) Joint pain (43) Left sided numbness (44) Leg pain (45) Low back pain (46) Nausea & vomiting (47) Neurological complaint (48) Palpitations (49) Pleurisy (50) Post-tussive emesis (51) Rheumatoid arteritis (52) Rheumatoid arteritis (53) Right ankle sprain (54) Right lumbar radiculopathy (55) Right lumbar radiculopathy (56) Sinusitis (57) SOB (shortness of breath) (58) SYMPT STATES ASSOC W ARTIFIC MENOPAUSE (59) Upper respiratory infection (60) Urinary symptom or sign Surgical Problems: (1) H/O: hysterectomy (2) H/O: hysterectomy (3) H/O: hysterectomy (4) S/P cholecystectomy Family History Cancer Cancer Diabetes mellitus Gallbladder disease Gallbladder disease Heart disease Hypertension Kidney disease Kidney stones Social History Smoking Status: Never Smoker Alcohol Use: none Drug Use: none Marital Status: Housing Status: lives with family Occupation Status: employed Current/Historical Medications Scheduled Pantoprazole (Protonix), 20 MG PO DAILY Ranitidine Hcl (Zantac), 150 MG PO BID Sertraline HCl (Sertraline HCl), 50 MG PO QPM Sucralfate (Carafate), 1 TAB PO QID Topiramate (Topamax), 50 MG PO HS Physical Exam Vital Signs Date Time Temp Pulse Resp B/P (MAP) Pulse Ox O2 Delivery O2 Flow Rate FiO2 09/07/17 02:16 78 18 134/76 97 09/07/17 01:16 80 18 146/78 98 Room Air 09/06/17 23:41 36.8 88 18 141/83 98 Room Air Physical Exam VITALS: Vitals are noted on the nurse's note and reviewed by myself. Vital signs stable. GENERAL: Well-developed, well-nourished, white female, who is in no acute distress and resting comfortably. Patient is cooperative with the examination. HEAD: Normocephalic atraumatic. NECK: Supple without nuchal rigidity. No lymphadenopathy. No thyromegaly. Cervical spine is nontender. HEART: Regular rate and rhythm without murmurs gallops or rubs. LUNGS: Clear to auscultation bilaterally without wheezes, rales or rhonchi. No retractions or accessory muscle use. MUSCULOSKELETAL: There is lateral tenderness of the left knee with abrasion and ecchymosis. Negative anterior/posterior drawer. No laxity with varus and valgus maneuvers. The lateral left ankle is also tender and edematous. Neurovascular status is intact to the distal lower left extremity. No tenderness into the foot. NEURO: Patient was alert and oriented to person place and time. CN II through XII grossly intact. Medical Decision & Procedures ER Provider Diagnostic Interpretation: L ANKLE MIN 3 VIEWS ROUTINE CLINICAL HISTORY: Fall. Left knee/ankle injury trauma. Pain. COMPARISON: None. DISCUSSION: The bones and joint spaces appear intact. There is no evidence of fracture, dislocation or bony disease. Moderate soft tissue edema IMPRESSION: Soft tissue edema. No acute bony abnormality. L KNEE 3 VIEWS CLINICAL HISTORY: Fall. Left knee/ankle injury trauma. Pain. COMPARISON: None. DISCUSSION: The bones and joint spaces appear intact. There is no evidence of fracture, dislocation or bony disease. There is no evidence for soft tissue swelling. IMPRESSION: Negative study. Medications Administered Medications (Trade) Dose Ordered Sig/Afshin Route Start Time Stop Time Status Last Admin Dose Admin Acetaminophen (Tylenol Tab) 1,000 mg NOW STAT PO 09/07/17 00:06 09/07/17 00:08 DC 09/07/17 00:15 1,000 MG ED Course Physical exam and history were performed. Nursing notes, EMR, and Medication List were personally reviewed. Patient appears to have suffered a mechanical fall with injuries to her left knee and left ankle. The patient does have an abrasion of her left knee and believe she is up-to-date on her tetanus. The patient was medicated with Advil and Tylenol here in department. X-rays were performed and reviewed by myself and radiology as showing no acute fractures or dislocations. Most of the patient's discomfort is in the left knee and she was placed in a knee immobilizer. The patient will be given crutches and instructions to follow with orthopedics for further care management. She was otherwise invited back to the ER with any new, worsening, or concerning symptoms. The chart was completed utilizing [employer] Speech Voice Recognition Software. Grammatical errors, random word insertions, pronoun errors, and incomplete sentences are an occasional consequence of this system due to software limitations, ambient noise, and hardware issues. Any formal questions or concerns about the content, text, or information contained within the body of this dictation should be directly addressed to the provider for clarification. . Medical Decision Differential diagnosis includes, but is not limited to: Sprain, strain, fracture , dislocation, subluxation, contusion, and others Impression Primary Impression: Fall Additional Impression: Contusion of multiple sites Departure Information Dispostion Home / Self-Care Condition GOOD Referrals Cole Nicolas M.D. (PCP) Stefanie, Ezequiel V.,D.O. Forms HOME CARE DOCUMENTATION FORM, IMPORTANT VISIT INFORMATION Patient Instructions My [facility] Additional Instructions You were seen and evaluated today on an emergency basis only. This is not a substitute for, or an effort to provide, complete comprehensive medical care. It is not possible to recognize and treat all injuries or illnesses in a single emergency department visit. For this reason it is recommended that you followup with [facility] this week if symptoms persist. For baseline pain relief you may alternate ibuprofen and acetaminophen every 4 hours for pain control. Take 600 mg ibuprofen (Advil) and then 4 hours later take 1000 mg acetaminophen (Tylenol). Do not take more than 3000 mg acetaminophen in a single day. Wear your Kapil wrap and knee immobilizer. Use your crutches for the next 3-4 days. If you have persisting symptoms please follow with orthopedics. You are welcome to return to the emergency department anytime with new, worsening, or concerning symptoms. Problem Qualifiers
== END 2017-09-07 02:16 | disposition home or self-care (01) ==
LOC: C.EDB 23:22 → C.EDC 09-07 02:16
DX: S80.212A Abrasion, left knee, initial encounter (principal); S80.02XA Contusion of left knee, initial encounter; M25.572 Pain in left ankle and joints of left foot; M25.472 Effusion, left ankle; T14.8XXA Other injury of unspecified body region, initial encounter; W17.89XA Other fall from one level to another, initial encounter; X50.1XXA Overexertion from prolonged static or awkward postures, initial encounter; Y93.01 Activity, walking, marching and hiking; Y92.480 Sidewalk as the place of occurrence of the external cause; Y99.8 Other external cause status; J45.909 Unspecified asthma, uncomplicated; E11.9 Type 2 diabetes mellitus without complications; K21.9 Gastro-esophageal reflux disease without esophagitis; R51 Headache; K58.9 Irritable bowel syndrome, unspecified; G89.29 Other chronic pain; Z90.710 Acquired absence of both cervix and uterus; Z90.49 Acquired absence of other specified parts of digestive tract; Z87.19 Personal history of other diseases of the digestive system; Z87.09 Personal history of other diseases of the respiratory system; Z87.2 Personal history of diseases of the skin and subcutaneous tissue; Z86.72 Personal history of thrombophlebitis; Z83.3 Family history of diabetes mellitus; Z83.79 Family history of other diseases of the digestive system; Z82.49 Family history of ischemic heart disease and other diseases of the circulatory system; Z84.1 Family history of disorders of kidney and ureter

== ENCOUNTER 2017-10-27 10:34 | Emergency (ER) | payer OTHER ==
[~2017-10-27] VITALS: Ht 175.3 cm; Wt 127.3 kg
[~2017-10-27 10:34] MED LIST changes: +PRT/20 PO; +RANI150T3 PO
[2017-10-27 10:36] VITALS: TEMP 36.7; Ht 175.3 cm; Wt 127.3 kg
[2017-10-27] MEDS ORDERED: KETOROLAC TROMETHAMINE 30 MG/ML VIAL IV STA (10:48)
[2017-10-27] MEDS ORDERED: ONDANSETRON INJ 2 MG/ML 2 ML VIAL IV STA (10:48)
[2017-10-27] MEDS ORDERED: SODIUM CHLORIDE 0.9% 1000ML 1,000 ML IV STA (10:48)
[2017-10-27 11:40] LABS: BASO % 0.2 %; BASO ABS # 0.01 K/uL (0-0.2); EOS % 2.4 %; EOS ABS # 0.12 K/uL (0-0.5); HEMATOCRIT 40.3 % (37-47); HEMOGLOBIN 14.4 g/dL (12.0-16.0); LYMPH % 34.9 %; LYMPH ABS # 1.71 K/uL (1.2-3.4); MEAN CELL VOLUME 87.2 fL (80-100); MEAN CORPUSCULAR HEMOGLOBIN 31.2 pg (25-34); MEAN CORPUSCULAR HGB CONC 35.7 g/dl (32-36); MEAN PLATELET VOLUME 9.7 fL (7.4-10.4); MONO % 5.9 %; MONO ABS # 0.29 K/uL (0.11-0.59); NEUT % 56.6 %; NEUT ABS # 2.77 K/uL (1.4-6.5); PLATELET COUNT 184 K/uL (130-400); RED CELL DISTRIBUTION WIDTH CV 12.6 % (11.5-14.5); RED CELL DISTRIBUTION WIDTH SD 40.4 fL (36.4-46.3)
[2017-10-27 11:57] LABS: ALBUMIN 3.6 gm/dl (3.4-5.0); ALT/SGPT 19 U/L (12-78); AST/SGOT 19 U/L (15-37); BLOOD UREA NITROGEN 11 mg/dl (7-18); CALCIUM 8.5 mg/dl (8.5-10.1); CARBON DIOXIDE 24 mmol/L (21-32); CREATININE 0.76 mg/dl (0.60-1.20); GLUCOSE 97 mg/dl (70-99); POTASSIUM 3.9 mmol/L (3.5-5.1); SODIUM 140 mmol/L (136-145)
[2017-10-27 11:59] LABS: ALKALINE PHOSPHATASE 98 U/L (45-117); LIPASE 98 U/L (73-393)
--- NOTE | 2017-10-27 12:36 | DIAGNOSTIC IMAGING REPORT ---
ABDOMEN LIMITED (US) HISTORY: 37 years-old Female RUQ previous alexandra. feel same acute right upper quadrant abdominal pain COMPARISON: CT abdomen and pelvis 06/20/2017 TECHNIQUE: Multiple real-time sonogram images of the abdominal right upper quadrant were obtained assessing grayscale appearance and color flow FINDINGS: Imaged pancreas appears unremarkable. Increased echogenicity with poor through transmission of the liver suggests hepatic steatosis. No focal hepatic mass lesion or intrahepatic or ductal dilation. Prior cholecystectomy. Common bile duct appears normal, 4 mm. Imaged right kidney is within normal limits without hydronephrosis. IMPRESSION: 1. Prior cholecystectomy without intrahepatic biliary ductal dilation. 2. Hepatic steatosis. The above report was generated using voice recognition software. It may contain grammatical, syntax or spelling errors. Electronically signed by: Markus Sanchez M.D. 10/27/2017 12:35 PM Dictated Date/Time: 10/27/2017 12:34 PM
[2017-10-27 13:33] VITALS: BP 139/74; PULSE 72; O2SAT 98
--- NOTE | 2017-10-27 14:25 | EMERGENCY ROOM VISIT NOTE ---
History Report prepared by Bel: Murphy Arguello Under the Supervision of: Dr. Og Martines D.O. First contact with patient: 10:40 Chief Complaint: ABDOMINAL PAIN Stated Complaint: PAIN IN RT SIDE/ FEVER History of Present Illness The patient is a 37 year old female who presents to the Emergency Room with complaints of intermittent right-sided abdominal pain beginning one week ago. She describes her pain as "sharp" and rates it as a 7/10 in severity. The patient's pain became more constant yesterday. She states that it wraps around into her back. The patient also complains of nausea. She denies any modifying factors. She has a history of cholecystectomy, and states that her pain feels similar to her previous gallbladder pain. The patient also has a history of complete hysterectomy. She notes that she feels too nauseous to eat much. Pt denies headache, change in vision, fevers, chest pain, shortness of breath, vomiting, diarrhea, pain with urination, and melena. Source of History: patient Onset: One week ago Position: abdomen (right-side) Symptom Intensity: 7/10 Quality: sharp Timing: intermittent Modifying Factors (Worsening): other (none) Modifying Factors (Relieving): other (none) Associated Symptoms: + nausea, No fevers, No headache, No chest pain, No SOB , No vomiting, No melena, No diarrhea, No urinary symptoms Review of Systems See HPI for pertinent positives & negatives. A total of 10 systems reviewed and were otherwise negative. Past Medical & Surgical Medical Problems: (1) Abdominal pain (2) Abdominal pain (3) Abdominal pain (4) Abdominal pain (5) Abdominal pain (6) Abdominal pain (7) Acute bronchitis (8) Asthma (9) Back strain (10) Biliary dyskinesia (11) Bronchitis (12) Cellulitis (13) Cellulitis (14) Cellulitis (15) Chest pain (16) Chest pain (17) Chronic headache (18) Chronic headache (19) Chronic low back pain (20) Costochondral pain (21) Costochondritis (22) Dehydration (23) Dehydration (24) DIAB SOFY WO COMPL, TYPE II OR UNSPEC TYPE, NOT UNCNTRLD (25) Diabetes (26) Diabetes mellitus (27) Diarrhea (28) ESOPHAGEAL REFLUX (29) Esophageal Reflux (30) Exacerbation of chronic back pain (31) Exacerbation of chronic back pain (32) Forearm contusion (33) Gastritis (34) Gastritis (35) Headache (36) Headache (37) Hip pain (38) Hx of blood clots (39) Insect bite (40) Insect bite (41) Irritable Bowel Syndrome (42) Joint pain (43) Left sided numbness (44) Leg pain (45) Low back pain (46) Nausea & vomiting (47) Neurological complaint (48) Palpitations (49) Pleurisy (50) Post-tussive emesis (51) Rheumatoid arteritis (52) Rheumatoid arteritis (53) Right ankle sprain (54) Right lumbar radiculopathy (55) Right lumbar radiculopathy (56) Sinusitis (57) SOB (shortness of breath) (58) SYMPT STATES ASSOC W ARTIFIC MENOPAUSE (59) Upper respiratory infection (60) Urinary symptom or sign Surgical Problems: (1) H/O: hysterectomy (2) H/O: hysterectomy (3) H/O: hysterectomy (4) S/P cholecystectomy Family History Cancer Cancer Diabetes mellitus Gallbladder disease Gallbladder disease Heart disease Hypertension Kidney disease Kidney stones Social History Smoking Status: Never Smoker Alcohol Use: none Drug Use: none Marital Status: Housing Status: lives with family Occupation Status: employed Current/Historical Medications Scheduled Sertraline HCl (Sertraline HCl), 50 MG PO QPM Topiramate (Topamax), 50 MG PO HS Allergies Coded Allergies: Diphenhydramine (Verified Allergy, Severe, ANAPHYLAXIS, 10/27/17) Shellfish (Verified Allergy, Mild, THROAT SWELLS, 10/27/17) Iodinated Contrast Media (Verified Allergy, Unknown, IVP DYE, 10/27/17) Iodine (Verified Allergy, Unknown, RXN TO IVP DYE, 10/27/17) SHELLFISH Penicillins (Verified Allergy, Unknown, HIVES/EDEMA, 10/27/17) Prochlorperazine (Verified Adverse Reaction, Intermediate, DRY MOUTH, AGITATED, 10/27/17) Physical Exam Vital Signs Date Time Temp Pulse Resp B/P (MAP) Pulse Ox O2 Delivery O2 Flow Rate FiO2 10/27/17 13:33 72 18 139/74 98 10/27/17 10:36 36.7 94 18 137/77 97 Room Air Physical Exam GENERAL: Sitting up in bed, disheveled, no distress, non-toxic EYE EXAM: normal conjunctiva. OROPHARYNX: no exudate, no erythema, lips, buccal mucosa, and tongue normal and mucous membranes are moist NECK: supple, no nuchal rigidity, no adenopathy, non-tender LUNGS: Clear to auscultation. Normal chest wall mechanics HEART: no murmurs, S1 normal and S2 normal ABDOMEN: abdomen soft, normo-active bowel sounds, no masses, no rebound or guarding. Tenderness to palpation throughout right flank. BACK: Back is symmetrical on inspection and there is no deformity, no midline tenderness, no CVA tenderness. SKIN: no rashes and no bruising UPPER EXTREMITIES: upper extremities are grossly normal. LOWER EXTREMITIES: No pitting edema. NEURO EXAM: Normal sensorium, cranial nerves II-XII grossly intact, normal speech, no gross weakness of arms, no gross weakness of legs. Medical Decision & Procedures ER Provider Diagnostic Interpretation: Radiology results as stated below per my review and the radiologist's interpretation: ABDOMEN LIMITED (US) FINDINGS: Imaged pancreas appears unremarkable. Increased echogenicity with poor through transmission of the liver suggests hepatic steatosis. No focal hepatic mass lesion or intrahepatic or ductal dilation. Prior cholecystectomy. Common bile duct appears normal, 4 mm. Imaged right kidney is within normal limits without hydronephrosis. IMPRESSION: 1. Prior cholecystectomy without intrahepatic biliary ductal dilation. 2. Hepatic steatosis. The above report was generated using voice recognition software. It may contain grammatical, syntax or spelling errors. Electronically signed by: Markus Sanchez M.D. 10/27/2017 12:35 PM Laboratory Results 10/27/17 11:30 Red Blood Count 4.62, Mean Corpuscular Volume 87.2, Mean Corpuscular Hemoglobin 31.2, Mean Corpuscular Hemoglobin Concent 35.7, Mean Platelet Volume 9.7, Neutrophils (%) (Auto) 56.6, Lymphocytes (%) (Auto) 34.9, Monocytes (%) (Auto) 5.9, Eosinophils (%) (Auto) 2.4, Basophils (%) (Auto) 0.2, Neutrophils # (Auto) 2.77, Lymphocytes # (Auto) 1.71, Monocytes # (Auto) 0.29, Eosinophils # (Auto) 0.12, Basophils # (Auto) 0.01 10/27/17 11:30 Test 10/27/17 11:30 White Blood Count 4.90 K/uL (4.8-10.8) Red Blood Count 4.62 M/uL (4.2-5.4) Hemoglobin 14.4 g/dL (12.0-16.0) Hematocrit 40.3 % (37-47) Mean Corpuscular Volume 87.2 fL (80-100) Mean Corpuscular Hemoglobin 31.2 pg (25-34) Mean Corpuscular Hemoglobin Concent 35.7 g/dl (32-36) Platelet Count 184 K/uL (130-400) Mean Platelet Volume 9.7 fL (7.4-10.4) Neutrophils (%) (Auto) 56.6 % Lymphocytes (%) (Auto) 34.9 % Monocytes (%) (Auto) 5.9 % Eosinophils (%) (Auto) 2.4 % Basophils (%) (Auto) 0.2 % Neutrophils # (Auto) 2.77 K/uL (1.4-6.5) Lymphocytes # (Auto) 1.71 K/uL (1.2-3.4) Monocytes # (Auto) 0.29 K/uL (0.11-0.59) Eosinophils # (Auto) 0.12 K/uL (0-0.5) Basophils # (Auto) 0.01 K/uL (0-0.2) RDW Standard Deviation 40.4 fL (36.4-46.3) RDW Coefficient of Variation 12.6 % (11.5-14.5) Immature Granulocyte % (Auto) 0.0 % Immature Granulocyte # (Auto) 0.00 K/uL (0.00-0.02) Urine Color YELLOW Urine Appearance CLEAR (CLEAR) Urine pH 7.5 (4.5-7.5) Urine Specific [place] 1.021 (1.000-1.030) Urine Protein NEG (NEG) Urine Glucose (UA) NEG (NEG) Urine Ketones NEG (NEG) Urine Occult Blood NEG (NEG) Urine Nitrite NEG (NEG) Urine Bilirubin NEG (NEG) Urine Urobilinogen NEG (NEG) Urine Leukocyte Esterase NEG (NEG) Urine WBC (Auto) 1-5 /hpf (0-5) Urine RBC (Auto) 0-4 /hpf (0-4) Urine Hyaline Casts (Auto) 0 /lpf (0-5) Urine Epithelial Cells (Auto) 20-30 /lpf (0-5) Urine Bacteria (Auto) NEG (NEG) Urine Test NEG (NEG) Anion Gap 5.0 mmol/L (3-11) Est Creatinine Clear Calc Drug Dose 142.2 ml/min Estimated GFR () 114.5 Estimated GFR (Non- 98.8 BUN/Creatinine Ratio 14.1 (10-20) Calcium Level 8.5 mg/dl (8.5-10.1) Total Bilirubin 0.4 mg/dl (0.2-1) Direct Bilirubin < 0.1 mg/dl (0-0.2) Aspartate Amino Transf (AST/SGOT) 19 U/L (15-37) Alanine Aminotransferase (ALT/SGPT) 19 U/L (12-78) Alkaline Phosphatase 98 U/L (45-117) Total Protein 7.0 gm/dl (6.4-8.2) Albumin 3.6 gm/dl (3.4-5.0) Lipase 98 U/L (73-393) Laboratory results per my review. Medications Administered Medications (Trade) Dose Ordered Sig/Afshin Route Start Time Stop Time Status Last Admin Dose Admin Ketorolac Tromethamine (Toradol Inj) 30 mg NOW STAT IV 10/27/17 10:48 10/27/17 10:49 DC 10/27/17 11:51 30 MG Sodium Chloride 1,000 ml @ 999 mls/hr Q1H1M STAT IV 10/27/17 10:48 10/27/17 11:48 DC 10/27/17 11:42 999 MLS/HR Ondansetron HCl (Zofran Inj) 4 mg NOW STAT IV 10/27/17 10:48 10/27/17 10:49 DC 10/27/17 11:51 4 MG ED Course ED COURSE: Vital signs were reviewed and appeared normal. The patients medical record was reviewed The above diagnostic studies were performed and reviewed. ED treatments and interventions as stated above. 1044: The patient was evaluated in room B12B. A complete history and physical examination was performed. 1048: Ordered Zofran Inj 4 mg IV, Sodium Chloride 1000 ml @ 999 mls/hr IV, Toradol Inj 30 mg IV. 1252: Upon reevaluation, the patient is resting comfortably. I discussed my findings with the patient and she understands and agrees with the treatment plan. Based on the patients age, coexisting illnesses, exam and lab findings the decision to treat as an outpatient was made. The patient remained stable while under my care. The patient appeared well at the time of discharge. Medical Decision Differential diagnoses includes but is not limited to gastritis, peptic ulcer disease, GERD, gallbladder disease, pancreatitis, small bowel obstruction, acute coronary syndrome, pericarditis, ischemic bowel, irritable bowel disease, irritable bowel syndrome, appendicitis, diverticulitis, malignancy, hernia, urinary tract infection, torsion, /ectopic , perforation, trauma, infectious. Patient is a 37-year-old female with a past medical history of cholecystectomy that presents the ER for right upper quadrant pain radiating around to her back. She notes this feels like her previous gallbladder attacks. Patient has no other complaints at this time. She is slightly tender. No signs of rebound or guarding. Vitals are stable. CBC along with BMP, LFTs, bilirubin and lipase is unremarkable. UA was negative. was negative. Ultrasound the right upper quadrant was unremarkable. Patient was given fluids and Toradol. She did feel significant better. She was discharged follow-up with PCP as an outpatient. I do question musculoskeletal but cannot be certain at this time. Nothing to suggest kidney stones as there was no hematuria. Discussed with Pt concerning signs and symptoms to watch out for. Pt was instructed to follow up with their PCP and discussed with the patient their option to return to the ED at anytime for persistent or worsening symptoms. The appropriate anticipatory guidance and out-patient management, including indications for return to the emergency department, were explained at length to the patient and understood. Medication Reconcilliation Current Medication List: was personally reviewed by me Blood Pressure Screening Patient's blood pressure: Elevated blood pressure Blood pressure disposition: Elevated BP felt to be situational Impression Primary Impression: Abdominal pain Scribe Attestation The scribe's documentation has been prepared under my direction and personally reviewed by me in its entirety. I confirm that the note above accurately reflects all work, treatment, procedures, and medical decision making performed by me. Departure Information Dispostion Home / Self-Care Referrals Cole Nicolas M.D. (PCP) Forms Call Back Authorization, HOME CARE DOCUMENTATION FORM, IMPORTANT VISIT INFORMATION Patient Instructions Abdominal Pain - [facility], [facility] Additional Instructions Please follow up with your primary care doctor with in the next 24 hours. Any worsening of your symptoms, please return to the ED immediately. This includes any fevers greater than 100.4, worsening pain, chest pain, shortness breath, persistent nausea, vomiting, unable to eat or drink, or any other concerning signs or symptoms from your standpoint. Problem Qualifiers Primary Impression: Abdominal pain Abdominal location: unspecified location Qualified Codes: R10.9 - Unspecified abdominal pain
== END 2017-10-27 13:36 | disposition home or self-care (01) ==
LOC: C.EDB 10:35
DX: R10.11 Right upper quadrant pain (principal); Z79.899 Other long term (current) drug therapy; Z91.041 Radiographic dye allergy status; Z88.0 Allergy status to penicillin; Z88.8 Allergy status to other drugs, medicaments and biological substances; Z91.013 Allergy to seafood

== ENCOUNTER 2022-04-13 14:53 | Observation (INO) ==
[2022-04-13] MEDS ORDERED: KETOROLAC TROMETHAMINE 15 MG/ML VIAL IV STA (15:55)
[2022-04-13] MEDS ORDERED: MoRPHine SULFATE 4 MG/ML 1 ML CARP\\VIAL IV STA (15:55)
[2022-04-13] MEDS ORDERED: LIDOCAINE 5% 1 PATCH TD STA (15:55)
[2022-04-13] MEDS ORDERED: dexAMETHasone**PF** 10 MG/ML VIAL IV ONE (15:55)
--- NOTE | 2022-04-13 15:57 | Emergency Department Note ---
History of Present Illness General Chief complaint: Back Injury/Pain Stated complaint: BACK PAIN Time Seen by Provider: 04/13/22 15:45 History of Present Illness Maximum Pain Intensity: 9 This is a 41-year-old female who presents to the emergency department via private vehicle with complaints of "low back pain". The patient has a history of low back pain and follows closely with neurosurgery at [facility]. The patient has not had L-spine surgery thus far. The patient notes that she is due for a follow-up in July or August of this coming year. Patient notes over the past few weeks pain has worsened. It is in the same location as previous but worsening in regard to severity. Patient notes difficulty obtaining a comfortable position and trouble sleeping. She has tried Aleve with minimal relief. She has tried using a walker but notes difficulty with this. Patient does notice a weakness sensation in the legs but has not fallen. Patient notes the pain radiates around to the lower pelvis region and describes it as a pressure. She denies any loss of control or bowel or bladder beyond baseline and no numbness/tingling in the genital region. Patient denies any fevers or chills. Current pain 03/01. Home Medications Medication Instructions Recorded Confirmed Type diclofenac sodium 1 % topical gel 2 g topical QID PRN Pain 12/28/20 04/13/22 History (Voltaren Arthritis Pain) ibuprofen 200 mg tablet (Advil) 200 mg PO Q6H PRN Pain 12/28/20 04/13/22 History sertraline 50 mg tablet 50 mg PO QPM #90 tabs 06/27/21 04/13/22 Rx pantoprazole 40 mg tablet,delayed 40 mg PO QPM 09/17/21 04/13/22 History release methylprednisolone 4 mg tablets in See Rx Instructions .Route 10/31/21 04/13/22 Rx a dose pack (Medrol (Nelson)) .COMPLEX #21 ea Allergies Allergy/AdvReac Type Severity Reaction Status Date / Time Iodinated Contrast Media Allergy Severe THROAT Verified 09/25/21 07:01 SWELLING/HIVES iodine Allergy Severe THROAT Verified 09/25/21 07:01 SWELLING/HIVES pregabalin [From Lyrica] Allergy Severe Rash Verified 10/31/21 15:18 shellfish derived Allergy Severe THROAT Verified 09/25/21 07:01 SWELLS prochlorperazine AdvReac Intermediate DRY MOUTH, Verified 09/25/21 07:01 AGITATED Past Med/Surg History Medical History (Updated 04/14/22 @ 12:21 by Bo Holliday DO) Abdominal pain Abdominal pain Abdominal pain Anxiety Back strain Biliary dyskinesia (10/24/13) Bronchitis Bronchitis LUNG INFECTION X 3 LAST WINTER (REASON FOR INHALER) Cellulitis Chest pain Chronic headache Contusion of multiple sites Costochondral pain Costochondritis Dehydration Depression Diabetes mellitus, type 2 Diarrhea Forearm contusion Gastritis Hiatal hernia Hip pain IBS (irritable bowel syndrome) Insect bite Joint pain Left sided numbness Leg pain Migraine Nausea & vomiting Osteoarthritis Palpitations Peripheral neuropathy Pleurisy Post-tussive emesis Pulmonary embolism 2014 AFTER DX WITH PNX Rheumatoid arteritis Right ankle sprain Right lumbar radiculopathy SCIATICA Sinusitis SOB (shortness of breath) Urethral stricture STRETCHING IN THE PAST Urinary symptom or sign Surgical History Family history of reaction to anesthesia MOTHER-NAUSEA AND SLOW TO WAKE UP History of ankle surgery RT LIGAMENTS REPAIR History of bilateral tubal ligation History of colostomy History of esophagogastroduodenoscopy (EGD) History of laparoscopy ADHESIONS REMOVAL History of repair of rotator cuff LEFT History of tooth extraction History of total abdominal hysterectomy and bilateral salpingo-oophorectomy Nausea and vomiting after administration of anesthetic agent S/P cholecystectomy Family History Mother Family history of diabetes mellitus Cancer Hypertension Father Family history of diabetes mellitus Grandfather (Maternal) Family history of diabetes mellitus Colorectal cancer Grandmother (Maternal) Family history of diabetes mellitus Sister Asthma Bronchitis Denies family history of Ovarian cancer Breast cancer Social History Smoking Status: Current every day smoker Tobacco Type: Cigarettes Cigarettes Per Day: 5; Second Hand Exposure: No; Do You Dip or Chew Tobacco: No; Tobacco Cessation Education Requested by Patient: No Hx Alcohol Use: No Hx Substance Use: No Preferred Language: Faroese Communication Ability: Effective Hearing Ability: Normal 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 Required: No Beliefs That Will Affect Care: None marital status: Current Living Situation: Family How many Children do You have: 1 Other Information That Helps Us Care for You: No Feels Safe at Home: Yes Safety Concerns: Feels Safe At This Time caffeine: Yes Dental Care, Regularly: Yes Physical Activity Frequency: Daily Seatbelt Use: always Sunscreen Use: Yes Assistive Devices: Walker Review of Systems A total of 10 systems reviewed and were otherwise negative Physical Exam Vital Signs Vital Signs - 24 hr 04/13/22 14:58 04/13/22 18:35 04/13/22 18:35 Temperature 36.7 C 37 C Temperature Source Temporal Artery Scan Oral Pulse Rate 93 H 76 Pulse Rate [Finger] 75 Respiratory Rate 20 18 Respiratory Effort / Characteristics Non-Labored Spontaneous Respiratory Depth Normal Respiratory Pattern Regular Blood Pressure 160/83 H Blood Pressure [Right Arm] 163/70 H Blood Pressure Mean 108 Blood Pressure Mean [Right Arm] 101 Pulse Oximetry 98 97 97 Oxygen Delivery Method Room Air Room Air Sepsis Recent Fever Within 48 Hours No Sepsis New/Unexplained Change in Mental Status No Sepsis Action Taken by Nursing No Action Required VITAL SIGNS - Vital signs and nursing notes were reviewed. Stable and afebrile. GENERAL -41-year-old female appearing her stated age who is in no acute distress. Communicates well with provider and answers questions appropriately. SKIN - Without rashes. No meningeal or petechial rash. HEAD - NC/AT. EYES - PERRL with EOMI bilaterally. Sclera anicteric. LUNGS - Chest wall symmetric without accessory muscle use, intercostals retractions, or central cyanosis. Normal vesicular breath sounds CTA B/L. No wheezes, rales, or rhonchi appreciated. CARDIAC - RRR with S1/S2. No murmur, rubs, or gallops appreciated. ABDOMEN - Abdominal contour normal without pulsations or visible masses. BS normoactive all four quadrants. No tenderness, palpable masses, hepatosplenomegaly, or ascites noted. EXTREMITIES - No clubbing or peripheral cyanosis. +5/5 strength noted in UE/LE bilaterally. NEUROLOGIC - Cranial nerves II through XII grossly intact. Sensory intact to light touch throughout the lower ext. PSYCH - A&Ox3 and cooperates fully with examiner. Pt is very pleasant and interacts well with examiner. Course Administered Medications Acetaminophen (Acetaminophen 500 Mg Tab) 1,000 mg PO Q8 QUINCY Stop: 05/13/22 22:14 Last Admin: 04/15/22 21:26 Dose: 1,000 mg Documented By: Admin: 04/15/22 14:18 Dose: 1,000 mg Documented By: [id number] Admin: 04/15/22 06:04 Dose: 1,000 mg Documented By: Admin: 04/14/22 21:21 Dose: 1,000 mg Documented By: Admin: 04/14/22 13:53 Dose: 1,000 mg Documented By: Admin: 04/14/22 05:58 Dose: 1,000 mg Documented By: Admin: 04/13/22 22:44 Dose: 1,000 mg Documented By: PRAVEEN Diphenhydramine HCl (Diphenhydramine 50 Mg/Ml Vial) 50 mg IV PRN PRN PRN Reason: pre contrast Stop: 05/15/22 08:16 Last Admin: 04/15/22 09:15 Dose: 50 mg Documented By: MERCEDEZ Enoxaparin Sodium (Enoxaparin Inj 40 Mg/0.4 Ml Syr) 40 mg SQ BID QUINCY Stop: 05/13/22 22:14 Last Admin: 04/13/22 22:49 Dose: 40 mg Documented By: PRAVEEN Dexamethasone 6 mg/ Syringe 1.5 mls @ 1 mls/min IV Q24H QUINCY Stop: 05/14/22 08:59 Last Admin: 04/15/22 11:08 Dose: 1 mls/min Documented By: Rachel Admin: 04/14/22 08:40 Dose: 1 mls/min Documented By: JOEL Insulin Aspart (Insulin Aspart Per Unit) 0 units SC ACHS QUINCY Stop: 05/15/22 05:59 Last Admin: 04/15/22 21:31 Dose: 2 units Documented By: ANDREA Co-signed By: TANIA Admin: 04/15/22 18:01 Dose: 5 units Documented By: [id number] Co-signed By: SARMAD Ketorolac Tromethamine (Ketorolac 30 Mg/Ml Vial) 30 mg IV Q6H PRN PRN Reason: Pain Stop: 04/18/22 21:58 Last Admin: 04/15/22 21:31 Dose: 30 mg Documented By: Admin: 04/15/22 11:09 Dose: 30 mg Documented By: [id number] Admin: 04/14/22 20:37 Dose: 30 mg Documented By: MARY Lidocaine (Lidocaine 5% 1 Patch) 1 patch TD QAM QUINCY Stop: 05/14/22 08:59 Last Admin: 04/15/22 11:08 Dose: 1 patch Documented By: [id number] Admin: 04/14/22 08:40 Dose: 1 patch Documented By: JOEL Miscellaneous (Remove Lidoderm Patch) 1 each N/A DAILY@2100 [facility] Stop: 05/13/22 22:59 Last Admin: 04/15/22 21:27 Dose: 1 each Documented By: Admin: 04/14/22 20:38 Dose: 1 each Documented By: Admin: 04/13/22 22:47 Dose: 1 each Documented By: PRAVEEN Pantoprazole Sodium (Pantoprazole 40 Mg Tab) 40 mg PO QPM QUINCY Stop: 05/13/22 21:58 Last Admin: 04/15/22 21:26 Dose: 40 mg Documented By: Admin: 04/14/22 20:38 Dose: 40 mg Documented By: Admin: 04/13/22 22:44 Dose: 40 mg Documented By: PRAVEEN Sertraline HCl (Sertraline Hcl 50 Mg Tablet) 50 mg PO QPM QUINCY Stop: 05/13/22 21:58 Last Admin: 04/15/22 21:26 Dose: 50 mg Documented By: Admin: 04/14/22 20:38 Dose: 50 mg Documented By: Admin: 04/13/22 22:44 Dose: 50 mg Documented By: PRAVEEN Tramadol HCl (Tramadol Hcl 50 Mg Tablet) 50 mg PO Q4H PRN PRN Reason: Pain Stop: 05/13/22 21:58 Last Admin: 04/15/22 18:01 Dose: 50 mg Documented By: [id number] Admin: 04/14/22 18:08 Dose: 50 mg Documented By: Admin: 04/14/22 05:57 Dose: 50 mg Documented By: Admin: 04/13/22 23:34 Dose: 50 mg Documented By: PRAVEEN Discontinued Medications Azelastine HCl (Azelastine Hcl 0.1% Nasal 200 Sprays/27,400 Mcg Btl) 1 sprays NA BID QUINCY Stop: 05/13/22 21:58 Last Admin: 04/13/22 22:43 Dose: Not Given Documented By: PRAVEEN Dexamethasone Sodium Phosphate (DexamethasonePf 10 Mg/Ml Vial) 10 mg IV NOW ONE Stop: 04/13/22 15:56 Last Admin: 04/13/22 16:20 Dose: 10 mg Documented By: ANGELICA Famotidine (Famotidine 10 Mg Tablet) 10 mg PO NOW ONE Stop: 04/14/22 02:31 Last Admin: 04/14/22 02:42 Dose: 10 mg Documented By: PRAVEEN Gadobutrol (Gadobutrol 65ml Vial) 12.5 ml IV ONCE ONE Stop: 04/15/22 10:02 Last Admin: 04/15/22 10:02 Dose: 12.5 ml Documented By: KIMBERLEY Hydromorphone HCl (Hydromorphone Inj 1 Mg/Ml Syringe) 1 mg IV NOW STA Stop: 04/13/22 18:07 Last Admin: 04/13/22 18:42 Dose: 1 mg Documented By: ANGELICA Insulin Aspart (Insulin Aspart Per Unit) 0 units SC Q6 QUINCY Stop: 05/13/22 22:29 Last Admin: 04/14/22 18:08 Dose: 2 units Documented By: JOEL Co-signed By: TRISH Admin: 04/14/22 12:59 Dose: Not Given Documented By: Admin: 04/14/22 05:58 Dose: Not Given Documented By: PRAVEEN Co-signed By: BAILEE Admin: 04/13/22 23:31 Dose: 1 units Documented By: PRAVEEN Co-signed By: PAULIE Insulin Aspart (Insulin Aspart Per Unit) 0 units SC ACHS QUINCY Stop: 05/14/22 20:59 Last Admin: 04/14/22 21:15 Dose: Not Given Documented By: MARY Co-signed By: BAILEE Insulin Aspart (Insulin Aspart Per Unit) 0 units SC Q6 QUINCY Stop: 05/15/22 05:59 Last Admin: 04/15/22 12:06 Dose: Not Given Documented By: [id number] Co-signed By: SARMAD Admin: 04/15/22 06:04 Dose: Not Given Documented By: MARY Co-signed By: KRISTIN Ketorolac Tromethamine (Ketorolac Tromethamine 15 Mg/Ml Vial) 15 mg IV NOW STA Stop: 04/13/22 15:56 Last Admin: 04/13/22 16:20 Dose: 15 mg Documented By: ANGELICA Lidocaine (Lidocaine 5% 1 Patch) 1 patch TD NOW STA Stop: 04/13/22 15:56 Last Admin: 04/13/22 16:19 Dose: 1 patch Documented By: ANGELICA Miscellaneous (Azelastine Eye~Order Awaiting Action) 1 each N/A QS QUINCY Stop: 05/13/22 22:14 Last Admin: 04/13/22 22:46 Dose: Not Given Documented By: PRAVEEN Morphine Sulfate (Morphine Sulfate 4 Mg/Ml 1 Ml Carp\\Vial) 4 mg IV NOW STA Stop: 04/13/22 15:56 Last Admin: 04/13/22 16:20 Dose: 4 mg Documented By: ANGELICA Medical Decision Making Laboratory Data Result diagrams: 04/15/22 05:36 04/15/22 05:36 Lab Results 04/13/22 04/13/22 04/13/22 Range/Units 16:20 16:20 16:24 WBC 7.55 (4.8-10.8) K/ul RBC 4.62 (3.93-5.22) M/uL Hgb 14.6 (12.0-16.0) g/dl Hct 42.0 (34.1-44.9) % MCV 90.9 (80.0-100.0) fL MCH 31.6 (25.0-34.0) pg MCHC 34.8 (32.0-36.0) g/dL RDW Std Deviation 43.9 (36.4-46.3) fL RDW Coeff of Ariane 13.2 (11.5-14.5) % Plt Count 225 (130-400) K/uL MPV 10.4 (9.4-12.3) fL Immature Gran % (Auto) 0.3 % Neut % (Auto) 59.9 % Lymph % (Auto) 30.2 % [place] % (Auto) 7.0 % Eos % (Auto) 2.1 % Baso % (Auto) 0.5 % Neut # (Auto) 4.52 (1.4-6.5) K/uL Lymph # (Auto) 2.28 (1.2-3.4) K/uL [place] # (Auto) 0.53 (0.24-0.82) K/uL Eos # (Auto) 0.16 (0-0.50) K/uL Baso # (Auto) 0.04 (0-0.2) K/uL Immature Gran # (Auto) 0.02 (0.00-0.02) K/uL Sodium 140 (136-145) mmol/L Potassium 3.9 (3.5-5.1) mmol/L Chloride 108 H (98-107) mmol/L Carbon Dioxide 26 (21-32) mmol/L Anion Gap 6 (3-11) BUN 14 (6-23) mg/dl Creatinine 1.06 (0.6-1.2) mg/dl Est Cr Clr Drug Dosing Not Reportable Est GFR ( Amer) 74.5 ml/min Est GFR (Non-Af Amer) 64.3 ml/min BUN/Creatinine Ratio 13.2 (10-20) Glucose 93 (70-99(Fasting)) mg/dl Calcium 9.4 (8.5-10.1) mg/dl Total Bilirubin 0.3 (0.2-1.0) mg/dl AST 17 (13-39) U/L ALT 10 (7-52) U/L Alkaline Phosphatase 93 (34-104) U/L Total Protein 7.0 (6.0-8.3) gm/dl Albumin 4.2 (3.4-5.0) gm/dl Globulin 2.8 (2.5-4.0) gm/dl Albumin/Globulin Ratio 1.5 (0.9-2) Urine Color Yellow Urine Appearance Cloudy A (Clear) Urine pH 5.5 (4.5-7.5) Ur Specific [place] 1.027 (1.000-1.030) Urine Protein Negative (Negative) Urine Glucose (UA) Negative (Negative) Urine Ketones Trace H (Negative) Urine Blood Negative (Negative) Urine Nitrite Negative (Negative) Urine Bilirubin Negative (Negative) Urine Urobilinogen Negative (Negative) Ur Leukocyte Esterase Negative (Negative) Urine WBC (Auto) 1-5 (0-5) /hpf Urine RBC (Auto) 0-4 (0-4) /hpf U Hyaline Cast (Auto) 1-5 (0-5) /lpf U Epithel Cells (Auto) >30 H (0-5) /lpf Urine Bacteria (Auto) Negative (Negative) Urine Crystals Not Reportable Calcium Oxalate Crystal Present A (None Prsent) SARS-CoV-2, RNA, NAAT (NEGATIVE) 04/13/22 Range/Units 18:35 WBC (4.8-10.8) K/ul RBC (3.93-5.22) M/uL Hgb (12.0-16.0) g/dl Hct (34.1-44.9) % MCV (80.0-100.0) fL MCH (25.0-34.0) pg MCHC (32.0-36.0) g/dL RDW Std Deviation (36.4-46.3) fL RDW Coeff of Ariane (11.5-14.5) % Plt Count (130-400) K/uL MPV (9.4-12.3) fL Immature Gran % (Auto) % Neut % (Auto) % Lymph % (Auto) % [place] % (Auto) % Eos % (Auto) % Baso % (Auto) % Neut # (Auto) (1.4-6.5) K/uL Lymph # (Auto) (1.2-3.4) K/uL [place] # (Auto) (0.24-0.82) K/uL Eos # (Auto) (0-0.50) K/uL Baso # (Auto) (0-0.2) K/uL Immature Gran # (Auto) (0.00-0.02) K/uL Sodium (136-145) mmol/L Potassium (3.5-5.1) mmol/L Chloride (98-107) mmol/L Carbon Dioxide (21-32) mmol/L Anion Gap (3-11) BUN (6-23) mg/dl Creatinine (0.6-1.2) mg/dl Est Cr Clr Drug Dosing Est GFR ( Amer) ml/min Est GFR (Non-Af Amer) ml/min BUN/Creatinine Ratio (10-20) Glucose (70-99(Fasting)) mg/dl Calcium (8.5-10.1) mg/dl Total Bilirubin (0.2-1.0) mg/dl AST (13-39) U/L ALT (7-52) U/L Alkaline Phosphatase (34-104) U/L Total Protein (6.0-8.3) gm/dl Albumin (3.4-5.0) gm/dl Globulin (2.5-4.0) gm/dl Albumin/Globulin Ratio (0.9-2) Urine Color Urine Appearance (Clear) Urine pH (4.5-7.5) Ur Specific [place] (1.000-1.030) Urine Protein (Negative) Urine Glucose (UA) (Negative) Urine Ketones (Negative) Urine Blood (Negative) Urine Nitrite (Negative) Urine Bilirubin (Negative) Urine Urobilinogen (Negative) Ur Leukocyte Esterase (Negative) Urine WBC (Auto) (0-5) /hpf Urine RBC (Auto) (0-4) /hpf U Hyaline Cast (Auto) (0-5) /lpf U Epithel Cells (Auto) (0-5) /lpf Urine Bacteria (Auto) (Negative) Urine Crystals Calcium Oxalate Crystal (None Prsent) SARS-CoV-2, RNA, NAAT NEGATIVE (NEGATIVE) Imaging Data Radiologist's Impression: Lumbar Spine X-Ray 04/13/22 15:55 LUMBAR SPINE 5 VIEWS CLINICAL HISTORY: Chronic low back pain. FINDINGS: 5 views of the lumbar spine are compared to study dated 03/21/2019. Th e skeletal structures are well mineralized. There is no radiographic evidence of fracture or malalignment. Vertebral body height and alignment are maintained. Tiny anterior and lateral marginal osteophytes are seen throughout. The transverse and spinous processes are intact. There is no evidence of spondylolysis. The intervertebral disc spaces are well-maintained. The visualized bony pelvis appears intact. Mild sclerotic change is seen in the sacroiliac joints. There is a nonobstructed abdominal bowel gas pattern. Cholecystectomy clips are noted in the right upper quadrant. IMPRESSION: No acute bony abnormality is seen involving the lumbar spine. ACT 112: Negative or not required by law. Electronically signed by: Hany Cole M.D. 04/13/2022 6:15 PM [facility] Narrative Patient was seen and evaluated as above in room D03. Review was performed of nursing notes and vital signs. I did review pertinent previous visits and patient history. After obtaining a thorough history and physical examination the above work up was performed. Patient presents to us today with acute on chronic low back pain. She clinically appears well and nontoxic. Patient does not have any focal deficit on my examination here today. No evidence of cauda equina syndrome clinically. No infectious symptoms. Options of care were discussed with the patient. IV access was established. Labs were drawn. Patient was medicated with several IV analgesics with minimal relief. Lidocaine patch also utilized. IV Decadron also ordered. L-spine x- ray was obtained. Results as above. This was negative. MRI was going to be ordered however the patient notes severe claustrophobia and despite Ativan and such in the past she is unable to tolerate unless she is fully sedated. At this point with the patient's ongoing discomfort I do find it reasonable to proceed with admission to the hospital for further evaluation and management and control of her pain. Patient happy with plan of care. At this point there is no evidence of emergent surgical process on examination. Case discussed with the hospitalist service. Please refer to further documentation regarding her stay. Labs reveal no leukocytosis or concerning anemia. No emergent metabolic disturbance. Urinalysis does not suggest infection. COVID testing negative. GCS: 15 In the evaluation and treatment of this patient the following differential diagnosis entertained: Fracture, dislocation, subluxation, cauda equina syndr ome, AAA, diverticulitis, appendicitis, torsion, osteomyelitis, piriformis syndrome, strain, sprain, among others. Impression & Plan Lumbar radiculopathy, Intractable low back pain Discharge Plan Visit Data Patient Disposition: Admitted As Inpatient Condition: Good Discharge Instructions Interventions: ED Discharge Assessment Last Done: 04/13/22 21:12
[2022-04-13 16:43] LABS: Appearance Urine Cloudy (Clear); Bacteria Urine Automated Negative (Negative); Bilirubin Urine Negative (Negative); Blood Urine Negative (Negative); Color Urine Yellow; Epithelial Cell Urine Auto >30 /lpf (0-5); Glucose Urine UA Negative (Negative); Ketones Urine Trace (Negative); Leukocyte Esterase Urine Negative (Negative); Nitrite Urine Negative (Negative); Protein Urine Negative (Negative); RBC Urine Automated 0-4 /hpf (0-4); Specific Gravity Urine 1.027 (1.000-1.030); Urobilinogen Urine Negative (Negative); pH Urine 5.5 (4.5-7.5)
[2022-04-13 16:50] LABS: Basophils # (auto) 0.04 K/uL (0-0.2); Basophils % (auto) 0.5 %; Eosinophils # (auto) 0.16 K/uL (0-0.50); Eosinophils % (auto) 2.1 %; Hemoglobin 14.6 g/dl (12.0-16.0); Immature Granulocytes # (auto) 0.02 K/uL (0.00-0.02); Immature Granulocytes % (auto) 0.3 %; Lymphocytes # (auto) 2.28 K/uL (1.2-3.4); Lymphocytes % (auto) 30.2 %; Mean Corpuscular Hemoglobin 31.6 pg (25.0-34.0); Mean Corpuscular Hgb Conc 34.8 g/dL (32.0-36.0); Mean Corpuscular Volume 90.9 fL (80.0-100.0); Mean Platelet Volume 10.4 fL (9.4-12.3); Monocytes # (auto) 0.53 K/uL (0.24-0.82); Neutrophils # (auto) 4.52 K/uL (1.4-6.5); Neutrophils % (auto) 59.9 %; Platelet Count 225 K/uL (130-400); RDW Coefficient of Variation 13.2 % (11.5-14.5); RDW Standard Deviation 43.9 fL (36.4-46.3); Red Blood Count 4.62 M/uL (3.93-5.22); White Blood Count 7.55 K/ul (4.8-10.8)
[2022-04-13 16:53] LABS: Calcium Oxalate Crystals Urine Present (None Prsent)
[2022-04-13 17:21] LABS: Alanine Aminotransferase 10 U/L (7-52); Albumin Globulin Ratio 1.5 (0.9-2); Albumin Level 4.2 gm/dl (3.4-5.0); Alkaline Phosphatase 93 U/L (34-104); Anion Gap 6 (3-11); Aspartate Aminotransferase 17 U/L (13-39); BUN Creatinine Ratio 13.2 (10-20); Bilirubin,Total 0.3 mg/dl (0.2-1.0); Blood Urea Nitrogen 14 mg/dl (6-23); Calcium 9.4 mg/dl (8.5-10.1); Carbon Dioxide 26 mmol/L (21-32); Chloride 108 mmol/L (98-107); Est GFR (African American) 74.5 ml/min; Est GFR (Non-African American) 64.3 ml/min; Globulin 2.8 gm/dl (2.5-4.0); Glucose 93 mg/dl (70-99(Fasting)); Potassium 3.9 mmol/L (3.5-5.1); Sodium 140 mmol/L (136-145)
[2022-04-13] MEDS ORDERED: HYDROmorphone INJ 1 MG/ML SYRINGE IV STA (18:06)
--- NOTE | 2022-04-13 18:16 | XRay Report ---
LUMBAR SPINE 5 VIEWS CLINICAL HISTORY: Chronic low back pain. FINDINGS: 5 views of the lumbar spine are compared to study dated 03/21/2019. The skeletal structures are well mineralized. There is no radiographic evidence of fracture or malalignment. Vertebral body height and alignment are maintained. Tiny anterior and lateral marginal osteophytes are seen througho ut. The transverse and spinous processes are intact. There is no evidence of spondylolysis. The inter vertebral disc spaces are well-maintained. The visualized bony pelvis appears intact. Mild sclerotic change is seen in the sacroiliac joints. There is a nonobstructed abdominal bowel gas pattern. Cholec ystectomy clips are noted in the right upper quadrant. IMPRESSION: No acute bony abnormality is seen involving the lumbar spine. ACT 112: Negative or not required by law. Electronically signed by: Hany Cole M.D. 04/13/2022 6:15 PM
--- NOTE | 2022-04-13 19:11 | History & Physical Report ---
Date of Service April 13, 2022 Assessment & Plan (1) Back pain: Plan: 41 yo F with PMH chronic low back pain, schwannoma, RA, osteoarthritis, lumbar disc herniation, DM2, obesity, stress incontinence admitted with low back pain. -Suspect back pain likely multifactorial- multiple contributors of RA, obesity, schwannoma, osteoarthritis -Currently low suspicion for acute emergency such as cauda equina syndrome -Orthopedics consulted -Deferring neurology consult for now pending MRI results -Pain control with Decadron 6 mg IV daily, Toradol PRN, tramadol PRN, Tylenol 1000 mg q8h -MRI lumbar spine w/wo contrast ordered- pt will need sedation prior to MRI due to claustrophobia -Anesthesia consulted -IV Benadryl pretreatment due to contrast allergy- reported hives and throat swelling with CT contrast -made NPO after midnight -PT/OT ordered -need to obtain records from [facility] (2) Rheumatoid arthritis: Plan: -Has been on multiple RA biologic medications in past -Review of outpatient records states pt was on methotrexate as of 01/2022 but pt states she has not been on methotrexate for past several weeks due to adverse effects -Low concern for atlantoaxial subluxation at present -Lack of biologics over past several weeks may be contributing to worsening pain (3) Schwannoma: Plan: -[facility] records retrieved -10/2021 lumbar MRI -6 x 8 x 11 mm L2 vertebral level intradural/extramedullary lesion stable in size compared to 08/2020 [facility] images -Nerve root contact at L4-L5, L5-S1 -Multilevel neural foraminal narrowing, worst on left at L4-L5 -L4-L4 and L4-L5 disc annular fissures (4) Urinary incontinence: Plan: -Known history of stress incontinence -Recently increased urinary incontinence may indicate possible neurologic involvement at S1/S2 though low suspicion for cauda equina -UA unremarkable -Bladder scan with PVR ordered (5) Diabetes mellitus: Plan: -Last A1C 5.6% in 02/2021 -BSGs acceptable at present -SSI ordered (6) Anxiety: Plan: -Continue Zoloft 50 mg nightly (7) GERD (gastroesophageal reflux disease): Plan: -Continue pantoprazole 40 mg daily Plan FENGI: NPO midnight for MRI in AM Code status: FUll DVT ppx: Lovenox 40 mg BID Isolation: None Dispo: Medical/surgical History of Present Illness Chief Complaint: Low back pain Primary Care Provider: Hany Valencia, DO 41 yo F with PMH chronic low back pain, schwannoma, RA, osteoarthritis, lumbar disc herniation, DM2, obesity, stress incontinence admitted with low back pain. Pt has experienced low back pain for past few years, underwent conservative management without significant relief. Was seen by neurosurgeon in [facility]- previous lumbar spine MRIs done demonstrating arthritis with disc herniation and schwannoma (states around L5-S1/S2) with plan to continue observation. 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 This job entails lifting heavy weights (50+ lbs) over her shoulders which she has not done before and she noticed gradual worsening of her pain after this. Low back pain has acutely worsened over past 3 days -Located in midline of lower back -Dull, intermittent, aching pain with 6-9/10 severity -Exacerbated by movement, improves with rest -Pain radiates to both lower extremities down to feet, describes as "shooting" sensation -Notes associated weakness of legs, some numbness and tingling -Advil, Voltaren gel does provide moderate relief -Has not limited ambulation though pt reports occasional difficulty maintaining her balance -No fever, chills, headache, bowel incontinence -Does have mild associated urinary incontinence- occasional leaking. Pt has been wearing some urinary pads recently. Notices this leakage occurs even in absence of cough, bearing weight down Last night, pain had worsened to point of pt lying in position with any movement exacerbating her pain. Subsequently decided to come to ED due to escalating pain. In ED, pt arrived hemodynamically stable. Toradol, Decadron, morphine, Dilaudid and lidocaine patch administered for pain control. CBC, BMP, UA unremarkable though +calcium oxalate crystals noted in UA. Lumbar XR without acute findings. Allergies Allergy/AdvReac Type Severity Reaction Status Date / Time Iodinated Contrast Media Allergy Severe THROAT Verified 09/25/21 07:01 SWELLING/HIVES iodine Allergy Severe THROAT Verified 09/25/21 07:01 SWELLING/HIVES pregabalin [From Lyrica] Allergy Severe Rash Verified 10/31/21 15:18 shellfish derived Allergy Severe THROAT Verified 09/25/21 07:01 SWELLS prochlorperazine AdvReac Intermediate DRY MOUTH, Verified 09/25/21 07:01 AGITATED Home Medications Medication Instructions Recorded Confirmed Type diclofenac sodium 1 % topical gel 2 g topical QID PRN Pain 12/28/20 04/13/22 History (Voltaren Arthritis Pain) ibuprofen 200 mg tablet (Advil) 200 mg PO Q6H PRN Pain 12/28/20 04/13/22 History sertraline 50 mg tablet 50 mg PO QPM #90 tabs 06/27/21 04/13/22 Rx pantoprazole 40 mg tablet,delayed 40 mg PO QPM 09/17/21 04/13/22 History release methylprednisolone 4 mg tablets in See Rx Instructions .Route 10/31/21 04/13/22 Rx a dose pack (Medrol ([place])) .COMPLEX #21 ea azelastine 0.05 % eye drops 1 drp ophthalmic (eye) BID #6 mL 12/17/21 04/13/22 Rx azelastine 137 mcg (0.1 %) nasal 137 mcg (0.137 mL) intranasal BID 12/17/21 04/13/22 Rx spray aerosol #30 mL Past Med/Surg History Medical History (Updated 04/13/22 @ 20:42 by Anatoliy Gould MD) Abdominal pain Abdominal pain Abdominal pain Anxiety Back strain Biliary dyskinesia (10/24/13) Bronchitis Bronchitis LUNG INFECTION X 3 LAST WINTER (REASON FOR INHALER) Cellulitis Chest pain Chronic headache Contusion of multiple sites Costochondral pain Costochondritis Dehydration Depression Diabetes mellitus, type 2 Diarrhea Forearm contusion Gastritis Hiatal hernia Hip pain IBS (irritable bowel syndrome) Insect bite Joint pain Left sided numbness Leg pain Migraine Nausea & vomiting Osteoarthritis Palpitations Peripheral neuropathy Pleurisy Post-tussive emesis Pulmonary embolism 2013 AFTER DX WITH PNX Rheumatoid arteritis Right ankle sprain Right lumbar radiculopathy SCIATICA Sinusitis SOB (shortness of breath) Urethral stricture STRETCHING IN THE PAST Urinary symptom or sign Surgical History Family history of reaction to anesthesia MOTHER-NAUSEA AND SLOW TO WAKE UP History of ankle surgery RT LIGAMENTS REPAIR History of bilateral tubal ligation History of colostomy History of esophagogastroduodenoscopy (EGD) History of laparoscopy ADHESIONS REMOVAL History of repair of rotator cuff LEFT History of tooth extraction History of total abdominal hysterectomy and bilateral salpingo-oophorectomy Nausea and vomiting after administration of anesthetic agent S/P cholecystectomy Family History Mother Family history of diabetes mellitus Cancer Hypertension Father Family history of diabetes mellitus Grandfather (Maternal) Family history of diabetes mellitus Colorectal cancer Grandmother (Maternal) Family history of diabetes mellitus Sister Asthma Bronchitis Denies family history of Ovarian cancer Breast cancer Social History Smoking Status: Current every day smoker Tobacco Type: Cigarettes Second Hand Exposure: Yes; Hx Alcohol Use: No Hx Substance Use: No Preferred Language: Japanese Communication Ability: Effective Hearing Ability: Normal Junior Financial Analyst Required: No Beliefs That Will Affect Care: None Current Living Situation: Spouse Feels Safe at Home: Yes caffeine: Yes Dental Care, Regularly: Yes Physical Activity Frequency: Daily Seatbelt Use: always Sunscreen Use: Yes Assistive Devices: Glasses Review of Systems Review of Systems: Per subjective Physical Exam Physical Exam: General: well-appearing, obese, no acute distress HEENT: moist mucous membranes, anicteric sclerae, PERRLA, EOMI Neck: supple, full ROM, no focal tenderness CV: RRR, normal S1 and S2, no murmurs Resp: CTAB, unlabored respirations Abd: soft, +mild suprapubic tenderness, nondistended, no CVA tenderness b/l MSK: +TTP to lower midline of back and SI joints b/l, normal bulk and tone of LE b/l, straight leg test raise limited to 30 degrees on R side and 45-50 degrees on L side, normal posture, full back ROM with forward flexion/extension/lateral rotation though pain noted with forward flexion, Neuro: 5/5 strength with dorsiflexion/plantarflexion of b/l LE, intact patellar and Achilles reflexes b/l, normal sensorium to light touch along L1 to S1 dermatomes, largely symmetric gait with occasional L weightbearing preference, negative Romberg Skin: no ecchymoses or rashes appreciated, no soft tissue swelling appreciated over LE b/l Psych: normal mood, stable affect Results & Data Results & Data ([facility]) Vital Signs (Past 12 Hours) Vital Signs Temp Pulse Pulse Resp BP BP Pulse Ox 04/13/22 18:35 76 97 04/13/22 18:35 37 C 75 18 163/70 H 97 04/13/22 14:58 36.7 C 93 H 20 160/83 H 98 O2 Del Method 04/13/22 18:35 Room Air 04/13/22 18:35 04/13/22 14:58 Room Air Supervising Physician Co-Signing Physician Notes I personally examined the patient and verified all vasques points of history and exam, discussed case, and agree with decision making with Dr. Gould with the following additions/exceptions: S-this patient is a 41-year-old female with a history of lumbar spine schwannoma and chronic lower back pain, anxiety, GERD, obesity, rheumatoid arthritis, osteoarthritis, IBS, and PE who presents with progressively worsening acute on chronic lower back pain with numbness and tingling down the bilateral lower extremities as well as possible increase in urinary incontinence. No saddle anesthesia. She is able to walk but it causes great pain in the back and she feels like this causes her legs to give out. History and ROS otherwise reviewed as above In the ER, she was given IV morphine, IV Dilaudid, IV Toradol, and IV Decadron without significant relief. She contacted her neurosurgeon at [facility] who recommended she come in due to concern over the numbness going down the legs. O- Vitals reviewed Gen: AAOx3, NAD HEENT: Anicteric sclerae, EOMI CV: RRR no mgr nl S1S2 Pulm: CTAB no wcr Abd: +BS soft NT ND no masses or hernias Ext: No edema, 2+ DP pulses Skin: No rashes, warm/dry Neuro: Full strength throughout bilateral lower extremities, sensation slightly decreased to light touch in the right lateral leg and foot, DTRs 1+ patellar and Achilles bilaterally and symmetric, positive straight leg raise right greater than left Labs, Rads, reviewed A/E-55-[place]-old female here with acute on chronic lower back pain with lumbar radiculopathy symptoms. Do not suspect cauda equina at this time but does have progressive symptoms now with sensory deficits. Bladder scan without significant urinary retention Will plan to get MRI under sedation with anesthesia for tomorrow and consult orthopedic spine surgery Continue IV steroids, Toradol as needed, tramadol as needed for pain control
[2022-04-13] MEDS ORDERED: GLUCOSE 10 TAB/TUBE PO PRN (21:59)
[2022-04-13] MEDS ORDERED: GLUCOSE 40% GEL 15 GM TUBE PO PRN (21:59)
[2022-04-13] MEDS ORDERED: AZELASTINE HCL 0.1% NASAL 200 SPRAYS/27,400 MCG BTL SCH (21:59)
[2022-04-13] MEDS ORDERED: CARBOHYDRATES FOR HYPOGLYCEMIA PO PRN (21:59)
[2022-04-13] MEDS ORDERED: DEXTROSE 50% 50 ML SYRINGE IV PRN (21:59)
[2022-04-13] MEDS ORDERED: GLUCAGON FOR INJ 1 MG VIAL SQ PRN (21:59)
[2022-04-13] MEDS ORDERED: ENOXAPARIN INJ 40 MG/0.4 ML SYR SQ SCH (22:15)
--- NOTE | 2022-04-13 22:15 | Billing Data ---
Date of Service April 13, 2022 Coding Level of Care Code INT OBSERVATION CARE 70M LVL 3
[2022-04-13] MEDS: ACETAMINOPHEN 500 MG TAB PO SCH (22:44)
[2022-04-13] MEDS: PANTOprazole 40 MG TAB PO SCH (22:44)
[2022-04-13] MEDS: SERTRALINE HCL 50 MG TABLET PO SCH (22:44)
[2022-04-13] MEDS: INSULIN ASPART PER UNIT SC SCH (23:31)
[2022-04-13] MEDS: traMADol HCL 50 MG TABLET PO PRN (23:34)
[2022-04-14] MEDS ORDERED: FAMOTIDINE 10 MG TABLET PO ONE (02:30)
[2022-04-14] MEDS: traMADol HCL 50 MG TABLET PO PRN ×2 (05:57→18:08)
[2022-04-14] MEDS: ACETAMINOPHEN 500 MG TAB PO SCH ×3 (05:58→21:21)
[2022-04-14] MEDS: INSULIN ASPART PER UNIT SC SCH ×3 (05:58→18:08)
--- NOTE | 2022-04-14 07:29 | Hospitalist Progress Note ---
Date of Service April 14, 2022 Assessment & Plan (1) Back pain: (2) Rheumatoid arthritis: (3) Schwannoma: (4) Urinary incontinence: (5) Diabetes mellitus: (6) Anxiety: (7) GERD (gastroesophageal reflux disease): Plan 41 yo F with PMH chronic low back pain, schwannoma, RA, osteoarthritis, lumbar disc herniation, DM2, obesity, stress incontinence admitted for low back pain with N/T bilaterally R>L and increased urinary incontinence over the past few weeks. Lumbar back pain -Suspect back pain likely multifactorial- multiple contributors of RA, obesity, schwannoma, osteoarthritis -Previously seen by neurosurgeon in [facility]- previous lumbar spine MRIs done demonstrating arthritis with disc herniation and schwannoma (states around L5- S1/S2) with plan to continue observation. -Currently low suspicion for acute emergency such as cauda equina syndrome. Patient's urinary incontinence is more in line with stress incontinence. -No fever, chills, headache, bowel incontinence at time of admission -CBC, BMP, UA unremarkable though +calcium oxalate crystals noted in UA. -Orthopedics consulted. They will wait until MRI results are completed. -Deferring neurology consult for now pending MRI results -Pain control with Decadron 6 mg IV daily, Toradol PRN, tramadol PRN, Tylenol 1000 mg q8h -Lumbar Xray was negative for anything acute. -MRI lumbar spine w/wo contrast ordered- pt will need sedation prior to MRI due to claustrophobia -Anesthesia consulted -IV Benadryl pretreatment due to contrast allergy- reported hives and throat swelling with CT contrast. -made NPO after midnight -PT/OT ordered -Patient scheduled to have MRI on 04/15. Rheumatoid arthritis -Has been on multiple RA biologic medications in past -Review of outpatient records states pt was on methotrexate as of 01/2022 but pt states she has not been on methotrexate for past several weeks due to adverse effects -Low concern for atlantoaxial subluxation at present -Lack of biologics over past several weeks may be contributing to worsening pain Schwannoma -[facility] records retrieved -10/2021 lumbar MRI -6 x 8 x 11 mm L2 vertebral level intradural/extramedullary lesion stable in size compared to 08/2020 [facility] images -Nerve root contact at L4-L5, L5-S1 -Multilevel neural foraminal narrowing, worst on left at L4-L5 -L4-L4 and L4-L5 disc annular fissures Urinary incontinence -Known history of stress incontinence -Recently increased urinary incontinence may indicate possible neurologic involvement at S1/S2 though low suspicion for cauda equina -UA unremarkable -Bladder scan with PVR ordered Diabetes mellitus -Last A1C 5.6% in 02/2021 -BSGs acceptable at present -SSI ordered Anxiety -Continue Zoloft 50 mg nightly GERD (gastroesophageal reflux disease) -Continue pantoprazole 40 mg daily Fluids: none Nutrition: DM 2 diet then NPO after midnight Code status: full code DVT ppx: Lovenox Consults: orthopedic surgery, anesthesiology PT/OT: on Dispo: med/surg Thank you for allowing me to participate in the care of your patient. -Dr. Hany Valencia PGY1 Admission and Anticipated Discharge Date Admission Date: April 13, 2022 Supervising Physician Co-Signing Physician Notes I personally examined the patient and verified all vasques points of history and exam, discussed case, and agree with decision making with Dr Valencia. Right leg numbness and at times and itching feeling. Left leg cramping. Some urinary incontinence. MRI to be done under anesthesia tomorrow. Prior MRI noted. Vitals noted, in general she is awake and alert appears somewhat anxious and mildly uncomfortable. HEENT normocephalic atraumatic mucous membranes moist. Breathing unlabored no accessory muscle use good effort. Has subjective diminished sensation right leg medial thigh down to the foot. Fortunately strength is basically 5 out of 5 and equal bilaterally. Lumbar radiculopathyprior MRI with fairly significant findings, anticipate similar. MRI under anesthesia pending, orthopedics input greatly appreciated. Continue symptomatic control serial exams and vigilance for anything that could deteriorate into a surgical emergencygiven motor strength, does not appear to be acutely decompensating at this time. Otherwise as above Subjective Patient was seen beside this AM. She continues to have N/T in her bilateral legs and back pain that is radiating down her legs with associated weakness. She also states that her urinary incontinence occurs when she is trying to stretch her back and it becomes very painful, then she has some urination leakage. Review of Systems Review of Systems: All systems reviewed & are unremarkable except as noted in HPI & below Physical Exam Constitutional: WD/WN, vitals as above Eyes: PERRL, conjunctivae normal, anicteric sclerae Neck: trachea midline, no thyromegaly Respiratory: normal respiratory effort, lungs clear to auscultation Cardiovascular: RRR, no murmur, no edema Gastrointestinal (Abdomen): normal bowel sounds, soft, nontender, no hepatosplenomegaly Musculoskeletal: Spine: + limited thoraco-lumbar ROM, + lumbar spinal tenderness and + straight leg raise positive Extremities: + limited ROM of extremities (LE ) and strength 5/5 throughout Skin: no rashes, warm and dry Neurologic: Motor/Sensory: + sensory deficit (R foot 1/2 sensation ) Psychiatric: A+Ox3, euthymic affect Results & Data Results & Data ([facility]) Vital Signs (Past 12 Hours) Vital Signs Temp Pulse Resp BP Pulse Ox Pulse Ox O2 Del Method 04/13/22 21:45 Room Air 04/13/22 21:45 Room Air 04/13/22 21:45 96 04/13/22 21:45 36.6 C 73 20 113/83 96 Room Air 04/13/22 20:00 81 17 178/68 H 96 Room Air O2 Del Method 04/13/22 21:45 04/13/22 21:45 04/13/22 21:45 Room Air 04/13/22 21:45 04/13/22 20:00 Resident Activity Tracking Resident Involvement: Resident Care Provided Care Provided: Adult Hospital Medicine
[2022-04-14 07:48] LABS: Hematocrit (blood only) 41.4 % (34.1-44.9); Hemoglobin 14.6 g/dl (12.0-16.0); Mean Corpuscular Hemoglobin 31.7 pg (25.0-34.0); Mean Corpuscular Hgb Conc 35.3 g/dL (32.0-36.0); Mean Corpuscular Volume 89.8 fL (80.0-100.0); Mean Platelet Volume 10.5 fL (9.4-12.3); Platelet Count 231 K/uL (130-400); RDW Coefficient of Variation 12.9 % (11.5-14.5); RDW Standard Deviation 42.3 fL (36.4-46.3); Red Blood Count 4.61 M/uL (3.93-5.22); White Blood Count 10.38 K/ul (4.8-10.8)
[2022-04-14] MEDS: LIDOCAINE 5% 1 PATCH TD SCH (08:40)
[2022-04-14] MEDS: dexAMETHasone 6 MG in SYRINGE 0 ML IV SCH (08:40)
[2022-04-14 08:47] LABS: BUN Creatinine Ratio 29.4 (10-20); Calcium 9.3 mg/dl (8.5-10.1); Creatinine Clr Calc Pharmacy 152.6 ml/min; Est GFR (African American) 124.2 ml/min; Est GFR (Non-African American) 107.1 ml/min; Potassium 4.3 mmol/L (3.5-5.1)
--- NOTE | 2022-04-14 10:12 | Consultation ---
Date of Consultation April 14, 2022 Assessment & Plan (1) Intractable low back pain: Patient is currently scheduled for a sedated lumbar MRI today. We will review this once this has been completed and make further recommendations. Patient expresses understanding. History of Present Illness Reason for Consultation: Lower back pain, rule out cauda equina Attending Physician: Og Viera DO History of Present Illness Is a 41-year-old female who has chronic lower back pain and lower extremity symptoms. She has an established neurosurgeon, Dr. Tapia at [facility]. Patient last saw him in the spring. Next follow- up is in the spring 2022. A few days ago without precipitating accident, trauma, fall she had an increase in pressure sensation in her lower back. This caused her legs to go numb and feel like they were getting give out on her. Typically she ambulates independently. Her symptoms are more severe when standing. Leaning forward is palliative. She has trialed pain management in [place] but no injections were given due to her location of her schwannoma per the patient. She was trialed on Neurontin but due to increased liver enzymes, this has been discontinued. Over the weekend she has been managing her pain with [id number] medications and Voltaren gel. Denies perineum numbness. She states over the weekend she had a couple episodes of urinary incontinence when pain was severe. She has a history of rheumatoid arthritis, obesity, IBS, DM, anxiety. Allergies Allergy/AdvReac Type Severity Reaction Status Date / Time Iodinated Contrast Media Allergy Severe THROAT Verified 09/25/21 07:01 SWELLING/HIVES iodine Allergy Severe THROAT Verified 09/25/21 07:01 SWELLING/HIVES pregabalin [From Lyrica] Allergy Severe Rash Verified 10/31/21 15:18 shellfish derived Allergy Severe THROAT Verified 09/25/21 07:01 SWELLS prochlorperazine AdvReac Intermediate DRY MOUTH, Verified 09/25/21 07:01 AGITATED Home Medications Medication Instructions Recorded Confirmed Type diclofenac sodium 1 % topical gel 2 g topical QID PRN Pain 12/28/20 04/13/22 History (Voltaren Arthritis Pain) ibuprofen 200 mg tablet (Advil) 200 mg PO Q6H PRN Pain 12/28/20 04/13/22 History sertraline 50 mg tablet 50 mg PO QPM #90 tabs 06/27/21 04/13/22 Rx pantoprazole 40 mg tablet,delayed 40 mg PO QPM 09/17/21 04/13/22 History release methylprednisolone 4 mg tablets in See Rx Instructions .Route 10/31/21 04/13/22 Rx a dose pack (Medrol (Nelson)) .COMPLEX #21 ea Patient History Medical History Abdominal pain Abdominal pain Abdominal pain Anxiety Back strain Biliary dyskinesia (10/24/13) Bronchitis Bronchitis LUNG INFECTION X 3 LAST WINTER (REASON FOR INHALER) Cellulitis Chest pain Chronic headache Contusion of multiple sites Costochondral pain Costochondritis Dehydration Depression Diabetes mellitus, type 2 Diarrhea Forearm contusion Gastritis Hiatal hernia Hip pain IBS (irritable bowel syndrome) Insect bite Joint pain Left sided numbness Leg pain Migraine Nausea & vomiting Osteoarthritis Palpitations Peripheral neuropathy Pleurisy Post-tussive emesis Pulmonary embolism 2013 AFTER DX WITH PNX Rheumatoid arteritis Right ankle sprain Right lumbar radiculopathy SCIATICA Sinusitis SOB (shortness of breath) Urethral stricture STRETCHING IN THE PAST Urinary symptom or sign Surgical History Family history of reaction to anesthesia MOTHER-NAUSEA AND SLOW TO WAKE UP History of ankle surgery RT LIGAMENTS REPAIR History of bilateral tubal ligation History of colostomy History of esophagogastroduodenoscopy (EGD) History of laparoscopy ADHESIONS REMOVAL History of repair of rotator cuff LEFT History of tooth extraction History of total abdominal hysterectomy and bilateral salpingo-oophorectomy Nausea and vomiting after administration of anesthetic agent S/P cholecystectomy Family History Mother Family history of diabetes mellitus Cancer Hypertension Father Family history of diabetes mellitus Grandfather (Maternal) Family history of diabetes mellitus Colorectal cancer Grandmother (Maternal) Family history of diabetes mellitus Sister Asthma Bronchitis Denies family history of Ovarian cancer Breast cancer Social History Smoking Status: Current every day smoker Tobacco Type: Cigarettes Cigarettes Per Day: 5; Second Hand Exposure: No; Do You Dip or Chew Tobacco: No; Tobacco Cessation Education Requested by Patient: No Hx Alcohol Use: No Hx Substance Use: No Preferred Language: Slovenian Communication Ability: Effective Hearing Ability: Normal Daycare Teacher Required: No Beliefs That Will Affect Care: None Current Living Situation: Family Other Information That Helps Us Care for You: No Feels Safe at Home: Yes Safety Concerns: Feels Safe At This Time caffeine: Yes Dental Care, Regularly: Yes Physical Activity Frequency: Daily Seatbelt Use: always Sunscreen Use: Yes Assistive Devices: Glasses and Walker Review of Systems Review of Systems: All systems reviewed & are unremarkable except as noted in HPI & below Physical Exam Physical Exam: She is sitting in bed in no acute distress Alert and oriented x3 Nontender to palplation across the midline lumbar region. Nontender sciatic notch b/l. 5/5 bilateral EHL, dorsiflexion, plantarflexion, quadriceps, hamstrings Modestly positive logrolling bilaterally Constitutional: well developed Eyes: normal visual renteria by confrontation Neck: trachea midline, no thyromegaly Respiratory: normal respiratory effort Cardiovascular: Extremities: normal capillary refill Musculoskeletal: no cyanosis or clubbing, extremities motor strength 5/5 Extremities: extremities normal to inspection and strength 5/5 throughout Skin: no rashes, warm and dry Neurologic: normal touch/pain/proprioception and moves all extremities Psychiatric: A+Ox3, euthymic affect Eye Contact: good eye contact Speech: normal rate/rhythm/volume of speech Results & Data ([facility]) Vital Signs (Past 12 Hours) Vital Signs Temp Pulse Resp BP Pulse Ox O2 Del Method 04/14/22 07:42 36.5 C 78 16 127/83 96 Room Air 04/14/22 07:30 Room Air Diagnostic Findings [place] [phone] XRay Report Patient:TESSY ALBA Admit Date:04/13/22 MR#:[id number] Address[address] [facility] Acct ID:[id number] Address2: Date:[address] [facility] Zip:[place] [address] Age:41 Location:ED Sex:F Room/Bed: Att Phy: Diagnosis:BACK PAIN Lucy Phy:Farhat Tellez M.D. Service Date:04/13/22 [facility] Phy: Interpreting Phy:Hany Cole MDAdmit Phy: Ordering Phy:Yadiel Villalba PA-C cc: ~ LUMBAR SPINE 5 VIEWS CLINICAL HISTORY: Chronic low back pain. FINDINGS: 5 views of the lumbar spine are compared to study dated 03/21/2019. The skeletal structures are well mineralized. There is no radiographic evidence of fracture or malalignment. Vertebral body height and alignment are maintained. Tiny anterior and lateral marginal osteophytes are seen throughout. The transverse and spinous processes are intact. There is no evidence of spondylolysis. The intervertebral disc spaces are well-maintained. The visualized bony pelvis appears intact. Mild sclerotic change is seen in the sacroiliac joints. There is a nonobstructed abdominal bowel gas pattern. Cholecystectomy clips are noted in the right upper quadrant. IMPRESSION: No acute bony abnormality is seen involving the lumbar spine. ACT 112: Negative or not required by law. Electronically signed by: Hany Cole M.D. 04/13/2022 6:15 PM Dictated:04/13/22 1655 Transcribed: 04/13/22 1656
--- NOTE | 2022-04-14 12:21 | Anesthesiology Consultation ---
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 History Surgery Operation Date: 04/15/22 09:15 Proposed Procedures p MRI with Anesthesia Sedation Trip - Anatoliy Gould MD Height/Weight Height: 5 ft 9 in Weight: 127.3 kg Allergies Allergy/AdvReac Type Severity Reaction Status Date / Time Iodinated Contrast Media Allergy Severe THROAT Verified 09/25/21 07:01 SWELLING/HIVES iodine Allergy Severe THROAT Verified 09/25/21 07:01 SWELLING/HIVES pregabalin [From Lyrica] Allergy Severe Rash Verified 10/31/21 15:18 shellfish derived Allergy Severe THROAT Verified 09/25/21 07:01 SWELLS prochlorperazine AdvReac Intermediate DRY MOUTH, Verified 09/25/21 07:01 AGITATED Medications Home Medications Medication Instructions Recorded Confirmed Last Taken diclofenac sodium 1 % topical gel 2 g topical QID PRN Pain 12/28/20 04/13/22 12/26/20 (Voltaren Arthritis Pain) ibuprofen 200 mg tablet (Advil) 200 mg PO Q6H PRN Pain 12/28/20 04/13/22 12/28/20 04:00 600 mg sertraline 50 mg tablet 50 mg PO QPM #90 tabs 06/27/21 04/13/22 09/16/21 pantoprazole 40 mg tablet,delayed 40 mg PO QPM 09/17/21 04/13/22 09/16/21 release methylprednisolone 4 mg tablets in See Rx Instructions .Route 10/31/21 04/13/22 Unknown a dose pack (Medrol ([place])) .COMPLEX #21 ea Active Medications Generic Name Dose Route Start Last Admin Trade Name Freq PRN Reason Stop Dose Admin Acetaminophen 1,000 mg 04/13/22 22:15 04/14/22 05:58 Acetaminophen 500 Mg Tab PO 05/13/22 22:14 1,000 mg Q8 QUINCY Administration Enoxaparin Sodium 40 mg 04/13/22 22:15 04/13/22 22:49 Enoxaparin Inj 40 Mg/0.4 Ml Syr SQ 05/13/22 22:14 40 mg BID QUINCY Administration Dexamethasone 6 mg/ Syringe 1.5 mls @ 1 mls/min 04/14/22 09:00 04/14/22 08:40 IV 11/23/22 08:59 1 mls/min Q24H QUINCY Administration Insulin Aspart 0 units 04/13/22 22:30 04/14/22 05:58 Insulin Aspart Per Unit SC 05/13/22 22:29 Not Given Q6 QUINCY Lidocaine 1 patch 04/14/22 09:00 04/14/22 08:40 Lidocaine 5% 1 Patch TD 05/14/22 08:59 1 patch QAM QUINCY Administration Miscellaneous 1 each 04/13/22 23:00 04/13/22 22:47 Remove Lidoderm Patch N/A 05/13/22 22:59 1 each DAILY@2100 QUINCY Administration Pantoprazole Sodium 40 mg 04/13/22 21:59 04/13/22 22:44 Pantoprazole 40 Mg Tab PO 05/13/22 21:58 40 mg QPM QUINCY Administration Sertraline HCl 50 mg 04/13/22 21:59 04/13/22 22:44 Sertraline Hcl 50 Mg Tablet PO 05/13/22 21:58 50 mg QPM QUINCY Administration Tramadol HCl 50 mg 04/13/22 21:59 04/14/22 05:57 Tramadol Hcl 50 Mg Tablet PO 05/13/22 21:58 50 mg Q4H PRN Administration Pain NPO Date Last Intake of Fluids: 04/13/22 Time Last Intake of Fluids: 23:59 Date Last Intake of Solids: 04/13/22 Time Last Intake of Solids: 23:59 Past Medical History Medical History (Updated 04/14/22 @ 12:21 by Bo Holliday DO) Abdominal pain Abdominal pain Abdominal pain Anxiety Back strain Biliary dyskinesia (10/24/13) Bronchitis Bronchitis LUNG INFECTION X 3 LAST WINTER (REASON FOR INHALER) Cellulitis Chest pain Chronic headache Contusion of multiple sites Costochondral pain Costochondritis Dehydration Depression Diabetes mellitus, type 2 Diarrhea Forearm contusion Gastritis Hiatal hernia Hip pain IBS (irritable bowel syndrome) Insect bite Joint pain Left sided numbness Leg pain Migraine Nausea & vomiting Osteoarthritis Palpitations Peripheral neuropathy Pleurisy Post-tussive emesis Pulmonary embolism 2013 AFTER DX WITH PNX Rheumatoid arteritis Right ankle sprain Right lumbar radiculopathy SCIATICA Sinusitis SOB (shortness of breath) Urethral stricture STRETCHING IN THE PAST Urinary symptom or sign Past Family History Family History Mother Family history of diabetes mellitus Cancer Hypertension Father Family history of diabetes mellitus Grandfather (Maternal) Family history of diabetes mellitus Colorectal cancer Grandmother (Maternal) Family history of diabetes mellitus Sister Asthma Bronchitis Denies family history of Ovarian cancer Breast cancer Past Surgical History Surgical History Family history of reaction to anesthesia MOTHER-NAUSEA AND SLOW TO WAKE UP History of ankle surgery RT LIGAMENTS REPAIR History of bilateral tubal ligation History of colostomy History of esophagogastroduodenoscopy (EGD) History of laparoscopy ADHESIONS REMOVAL History of repair of rotator cuff LEFT History of tooth extraction History of total abdominal hysterectomy and bilateral salpingo-oophorectomy Nausea and vomiting after administration of anesthetic agent S/P cholecystectomy Social History Smoking Status: Current every day smoker tobacco type: cigarettes Smoking cigarettes per day: 5 Do You Dip or Chew Tobacco: No Hx Alcohol Use: No alcohol intake frequency: holidays/special occasions only Hx Substance Use: No substance use type: does not use Physical Exam Vital Signs Last Vital Signs Temp 97.7 F 04/14/22 07:42 Pulse 78 04/14/22 07:42 Resp 16 04/14/22 07:42 BP 127/83 04/14/22 07:42 Pulse Ox 96 04/14/22 07:42 O2 Del Method 04/14/22 07:42 Testing Laboratory Results 04/14/22 06:56 04/14/22 06:56 Urine Color Yellow 04/13/22 16:24 Urine Appearance Cloudy (Clear) A 04/13/22 16:24 Urine pH 5.5 (4.5-7.5) 04/13/22 16:24 Ur Specific [place] 1.027 (1.000-1.030) 04/13/22 16:24 Urine Protein Negative (Negative) 04/13/22 16:24 Urine Glucose (UA) Negative (Negative) 04/13/22 16:24 Urine Ketones Trace (Negative) H 04/13/22 16:24 Urine Nitrite Negative (Negative) 04/13/22 16:24 Ur Leukocyte Esterase Negative (Negative) 04/13/22 16:24 Urine WBC (Auto) 1-5 /hpf (0-5) 04/13/22 16:24 Urine RBC (Auto) 0-4 /hpf (0-4) 04/13/22 16:24 U Hyaline Cast (Auto) 1-5 /lpf (0-5) 04/13/22 16:24 U Epithel Cells (Auto) >30 /lpf (0-5) H 04/13/22 16:24 Urine Bacteria (Auto) Negative (Negative) 04/13/22 16:24 04/14/22 04/14/22 11:57 05:53 POC Glucose 122 H 121 H Electrocardiogram Date: 09/17/21 Findings: + NSR @ (83 bpm)
--- NOTE | 2022-04-14 18:06 | Billing Data ---
Date of Service April 14, 2022 Coding Level of Care Code 78664 Subseq Obs Care Lvl 3
[2022-04-14] MEDS: KETOROLAC 30 MG/ML VIAL IV PRN (20:37)
[2022-04-14] MEDS: SERTRALINE HCL 50 MG TABLET PO SCH (20:38)
[2022-04-14] MEDS: PANTOprazole 40 MG TAB PO SCH (20:38)
[2022-04-14] MEDS ORDERED: Nursing to Pharmacy Communication SCH (20:45)
[2022-04-14] MEDS ORDERED: INSULIN ASPART PER UNIT SC SCH (21:00)
[2022-04-15] MEDS ORDERED: Nursing to Pharmacy Communication SCH ×2 (00:15→14:45)
[2022-04-15] MEDS: ACETAMINOPHEN 500 MG TAB PO SCH ×3 (06:04→21:26)
[2022-04-15] MEDS: INSULIN ASPART PER UNIT SC SCH ×4 (06:04→21:31)
[2022-04-15 06:36] LABS: Basophils # (auto) 0.02 K/uL (0-0.2); Basophils % (auto) 0.2 %; Eosinophils # (auto) 0.02 K/uL (0-0.50); Eosinophils % (auto) 0.2 %; Hematocrit (blood only) 38.9 % (34.1-44.9); Hemoglobin 13.7 g/dl (12.0-16.0); Immature Granulocytes # (auto) 0.08 K/uL (0.00-0.02); Immature Granulocytes % (auto) 0.7 %; Lymphocytes # (auto) 2.44 K/uL (1.2-3.4); Lymphocytes % (auto) 20.4 %; Mean Corpuscular Hemoglobin 31.6 pg (25.0-34.0); Mean Corpuscular Hgb Conc 35.2 g/dL (32.0-36.0); Mean Corpuscular Volume 89.8 fL (80.0-100.0); Mean Platelet Volume 10.5 fL (9.4-12.3); Monocytes % (auto) 5.9 %; Neutrophils # (auto) 8.69 K/uL (1.4-6.5); Neutrophils % (auto) 72.6 %; Platelet Count 222 K/uL (130-400); RDW Coefficient of Variation 13.1 % (11.5-14.5); RDW Standard Deviation 42.9 fL (36.4-46.3); Red Blood Count 4.33 M/uL (3.93-5.22); White Blood Count 11.95 K/ul (4.8-10.8)
--- NOTE | 2022-04-15 06:55 | Hospitalist Progress Note ---
Date of Service April 15, 2022 Assessment & Plan (1) Back pain: (2) Rheumatoid arthritis: (3) Schwannoma: (4) Urinary incontinence: (5) Diabetes mellitus: (6) Anxiety: (7) GERD (gastroesophageal reflux disease): Plan 41 yo F with PMH chronic low back pain, schwannoma, RA, osteoarthritis, lumbar disc herniation, DM2, obesity, stress incontinence admitted for low back pain with N/T bilaterally R>L and increased urinary incontinence over the past few weeks. Lumbar back pain -Suspect back pain likely multifactorial- multiple contributors of RA, obesity, schwannoma, osteoarthritis -Previously seen by neurosurgeon in [facility]- previous lumbar spine MRIs done demonstrating arthritis with disc herniation and schwannoma (states around L5- S1/S2) with plan to continue observation. -Currently low suspicion for acute emergency such as cauda equina syndrome. Patient's urinary incontinence is more in line with stress incontinence. -No fever, chills, headache, bowel incontinence at time of admission -CBC, BMP, UA unremarkable though +calcium oxalate crystals noted in UA. -Orthopedics consulted. They will wait until MRI results are completed. -Deferring neurology consult for now pending MRI results -Pain control with Decadron 6 mg IV daily, Toradol PRN, tramadol PRN, Tylenol 1000 mg q8h -Lumbar Xray was negative for anything acute. -MRI lumbar spine w/wo contrast ordered- pt will need sedation prior to MRI due to claustrophobia -Anesthesia consulted -IV Benadryl pretreatment due to contrast allergy- reported hives and throat swelling with CT contrast. -made NPO after midnight -PT/OT ordered -MRI results are pending ortho review. Initial input is that no surgery would be needed at this time and patient should f/u with [place] neuro[facility] but pending note completion. Rheumatoid arthritis -Has been on multiple RA biologic medications in past -Review of outpatient records states pt was on methotrexate as of 01/2022 but pt states she has not been on methotrexate for past several weeks due to adverse effects -Low concern for atlantoaxial subluxation at present -Lack of biologics over past several weeks may be contributing to worsening pain Schwannoma -[facility] records retrieved -10/2021 lumbar MRI -6 x 8 x 11 mm L2 vertebral level intradural/extramedullary lesion stable in size compared to 08/2020 [facility] images -Nerve root contact at L4-L5, L5-S1 -Multilevel neural foraminal narrowing, worst on left at L4-L5 -L4-L4 and L4-L5 disc annular fissures Urinary incontinence -Known history of stress incontinence -Recently increased urinary incontinence may indicate possible neurologic involvement at S1/S2 though low suspicion for cauda equina -UA unremarkable -Bladder scan with PVR ordered Diabetes mellitus -Last A1C 5.6% in 02/2021 -BSGs acceptable at present -SSI ordered Anxiety -Continue Zoloft 50 mg nightly GERD (gastroesophageal reflux disease) -Continue pantoprazole 40 mg daily Fluids: none Nutrition: DM 2 diet Code status: full code DVT ppx: Lovenox Consults: orthopedic surgery, anesthesiology PT/OT: on Dispo: med/surg Thank you for allowing me to participate in the care of your patient. -Dr. Hany Valencia PGY1 Admission and Anticipated Discharge Date Admission Date: April 13, 2022 Supervising Physician Co-Signing Physician Notes I personally examined the patient and verified all vasques points of history and exam, discussed case, and agree with decision making with Dr Valencia. MRI discussed, awaiting orthospine input Vitals noted, in general she is awake and alert appears somewhat anxious and mildly uncomfortable. HEENT normocephalic atraumatic mucous membranes moist. Breathing unlabored no accessory muscle use good effort. skin no rashes no pallor or icterus Lumbar radiculopathyawaiting Ortho input. Continue supportive care for now. Otherwise as above Subjective Patient was seen beside this AM. She continues to have N/T in her bilateral legs and back pain that is radiating down her legs with associated weakness. She is currently post MRI with anesthesia. Review of Systems Review of Systems: Per subjective Physical Exam Constitutional: WD/WN, vitals as above Eyes: PERRL, conjunctivae normal, anicteric sclerae Neck: trachea midline, no thyromegaly Respiratory: normal respiratory effort, lungs clear to auscultation Cardiovascular: RRR, no murmur, no edema Gastrointestinal (Abdomen): normal bowel sounds, soft, nontender, no hepatosplenomegaly Musculoskeletal: Spine: + limited thoraco-lumbar ROM, + lumbar spinal tendern ess and + straight leg raise positive Extremities: + limited ROM of extremities (LE ) and strength 5/5 throughout Skin: no rashes, warm and dry Neurologic: Motor/Sensory: + sensory deficit (R foot 1/2 sensation ) Psychiatric: A+Ox3, euthymic affect Results & Data Results & Data ([facility]) Vital Signs (Past 12 Hours) Vital Signs Temp Pulse Resp BP Pulse Ox O2 Del Method 04/14/22 20:15 Room Air 04/15/22 00:34 36.4 C L 72 16 121/75 96 Room Air Resident Activity Tracking Resident Involvement: Resident Care Provided Care Provided: Adult Hospital Medicine
[2022-04-15 07:02] LABS: BUN Creatinine Ratio 28.4 (10-20); Calcium 8.8 mg/dl (8.5-10.1); Creatinine Clr Calc Pharmacy 128.1 ml/min; Est GFR (African American) 103.1 ml/min
[2022-04-15] MEDS ORDERED: diphenhydrAMINE 50 MG/ML VIAL IV PRN (08:17)
[2022-04-15] MEDS ORDERED: KETAMINE 50 MG/5 ML SYRINGE ONE (08:57)
[2022-04-15] MEDS ORDERED: MIDAZOLAM HCL 1 MG/ML 2ML VIAL ONE (08:57)
[2022-04-15] MEDS ORDERED: FAMOTIDINE/PF 20 MG/2 ML VIAL IV ONE (09:14)
[2022-04-15] MEDS ORDERED: HYDROCORTISONE SOD SUCCINATE 100 MG/2 ML VIAL ONE (09:14)
[2022-04-15] MEDS ORDERED: ONDANSETRON INJ 2 MG/ML 2 ML VIAL IV PRN (09:17)
[2022-04-15] MEDS ORDERED: ATROPINE SULFATE 0.1 MG/ML 10ML SYR IV PRN (09:17)
[2022-04-15] MEDS ORDERED: ONDANSETRON INJ 2 MG/ML 2 ML VIAL ONE (09:18)
[2022-04-15] MEDS ORDERED: GADOBUTROL 65ML VIAL IV ONE (10:01)
[2022-04-15] MEDS: LIDOCAINE 5% 1 PATCH TD SCH (11:08)
[2022-04-15] MEDS: dexAMETHasone 6 MG in SYRINGE 0 ML IV SCH (11:08)
[2022-04-15] MEDS: KETOROLAC 30 MG/ML VIAL IV PRN ×2 (11:09→21:31)
--- NOTE | 2022-04-15 11:11 | Magnetic Resonance Report ---
MRI OF THE LUMBAR SPINE WITH AND WITHOUT CONTRAST CLINICAL HISTORY: low back pain, h/o schwannoma COMPARISON STUDY: Lumbar spine MRI March 22, 2019. Lumbar spine radiographs April 13, 2022. TECHNIQUE: Utilizing a 1.5 Amara magnet and dedicated coil, multiplanar, multiecho imaging of the [facility] spine was performed before and after uneventful IV administration of 12.5 mL of Gadavist. FINDINGS: For purposes of numbering on this exam, the L5-S1 disc space is assigned to axial image 24 of 27. Ali gnment of the lumbar spine is anatomic. Vertebral body heights are maintained. Several hemangiomas ar e noted. A T1 hypointense lesion within the L5 vertebral body is similar to MRI of March 22, 2019. T his is also benign. The conus terminates at the mid L1 level. A 0.8 x 0.4 x 0.6 cm enhancing T2 hyper intense intradural extramedullary lesion along the posterior aspect of the nerve roots at the L2 leve l has slightly increased in size since MRI of March 06, 2016 when it measured 0.6 x 0.3 x 0.5 cm. This lesion was not well visualized on previous MRI. No additional enhancing lesions are identified within the lumbar canal. This study is mildly compromised by motion artifact. L1-2: The central canal and neural foramen are patent. There is moderate facet arthrosis. L2-3: There is moderate facet arthrosis. Central canal and neural foramen are patent. L3-4: There is facet arthrosis with ligamentous hypertrophy. Disc bulge is noted with central annular tear. The central canal and neural foramen are patent. L4-5: Moderate facet arthrosis is present. A small central disc protrusion is present. There is mild narrowing of the central canal and lateral recesses as well as mild to moderate narrowing of both trena ral foramen. Slight progression is noted since MRI of March 22, 2019. L5-S1: Moderate facet arthrosis is present. A left paracentral disc protrusion results in moderate na rrowing of the left lateral recess. This has slightly increased since previous MRI. The neural forame n are patent. Central canal is patent. IMPRESSION: 1. Slight increase in size of a 0.8 cm enhancing intradural extramedullary lesion along the posterior aspect of the nerve roots at the L2 level since MRI of March 06, 2016. This favors a schwannoma or meningioma. 2. Mild progression of multilevel degenerative changes. Left paracentral disc protrusion at L5-S1 radha t results in moderate narrowing of the left lateral recess. 3. Mild central canal stenosis at L4-L5. Mild to moderate bilateral neural foraminal stenosis at this level. ACT 112: Negative or not required by law. Electronically signed by: Isiah Renee M.D. 04/15/2022 11:09 AM
[2022-04-15] MEDS: traMADol HCL 50 MG TABLET PO PRN (18:01)
--- NOTE | 2022-04-15 18:42 | Billing Data ---
Date of Service April 15, 2022 Coding Level of Care Code 21046 Subseq Obs Care Lvl 2
[2022-04-15] MEDS: SERTRALINE HCL 50 MG TABLET PO SCH (21:26)
[2022-04-15] MEDS: PANTOprazole 40 MG TAB PO SCH (21:26)
[2022-04-16] MEDS: traMADol HCL 50 MG TABLET PO PRN (04:41)
[2022-04-16] MEDS: ACETAMINOPHEN 500 MG TAB PO SCH ×3 (06:21→21:14)
[2022-04-16 07:36] LABS: Hematocrit (blood only) 38.1 % (34.1-44.9); Hemoglobin 13.5 g/dl (12.0-16.0); Mean Corpuscular Hemoglobin 31.8 pg (25.0-34.0); Mean Corpuscular Hgb Conc 35.4 g/dL (32.0-36.0); Mean Corpuscular Volume 89.6 fL (80.0-100.0); Mean Platelet Volume 10.3 fL (9.4-12.3); Platelet Count 198 K/uL (130-400); RDW Coefficient of Variation 13.2 % (11.5-14.5); RDW Standard Deviation 43.6 fL (36.4-46.3); Red Blood Count 4.25 M/uL (3.93-5.22); White Blood Count 10.23 K/ul (4.8-10.8)
--- NOTE | 2022-04-16 07:48 | Discharge Summary ---
Date of Service April 16, 2022 Admission HPI Per Admitting Provider 41 yo F with PMH chronic low back pain, schwannoma, RA, osteoarthritis, lumbar disc herniation, DM2, obesity, stress incontinence admitted with low back pain. Pt has experienced low back pain for past few years, underwent conservative management without significant relief. Was seen by neurosurgeon in [facility]- previous lumbar spine MRIs done demonstrating arthritis with disc herniation and schwannoma (states around L5-S1/S2) with plan to continue observation. 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 This job entails lifting heavy weights (50+ lbs) over her shoulders which she has not done before and she noticed gradual worsening of her pain after this. Low back pain has acutely worsened over past 3 days -Located in midline of lower back -Dull, intermittent, aching pain with 6-9/10 severity -Exacerbated by movement, improves with rest -Pain radiates to both lower extremities down to feet, describes as "shooting" sensation -Notes associated weakness of legs, some numbness and tingling -Advil, Voltaren gel does provide moderate relief -Has not limited ambulation though pt reports occasional difficulty maintaining her balance -No fever, chills, headache, bowel incontinence -Does have mild associated urinary incontinence- occasional leaking. Pt has been wearing some urinary pads recently. Notices this leakage occurs even in absence of cough, bearing weight down Last night, pain had worsened to point of pt lying in position with any movement exacerbating her pain. Subsequently decided to come to ED due to escalating pain. In ED, pt arrived hemodynamically stable. Toradol, Decadron, morphine, Dilaudid and lidocaine patch administered for pain control. CBC, BMP, UA unremarkable though +calcium oxalate crystals noted in UA. Lumbar XR without acute findings. Discharge Data Allergies Allergy/AdvReac Type Severity Reaction Status Date / Time Iodinated Contrast Media Allergy Severe THROAT Verified 09/25/21 07:01 SWELLING/HIVES iodine Allergy Severe THROAT Verified 09/25/21 07:01 SWELLING/HIVES pregabalin [From Lyrica] Allergy Severe Rash Verified 10/31/21 15:18 shellfish derived Allergy Severe THROAT Verified 09/25/21 07:01 SWELLS prochlorperazine AdvReac Intermediate DRY MOUTH, Verified 09/25/21 07:01 AGITATED Consultations 04/13/22 18:56 ED Decision to Admit Stat 04/13/22 20:55 Consult Orthopedic Surgery Routine 04/13/22 20:59 Consult Anesthesiology Routine Procedures Performed Operation Date: 04/15/22 09:15 <No data on this case meets the specified criteria> Ordered Studies 04/15/22 09:15 MR lumbar spine wo/w con Stat Hospital Course (1) Back pain: (2) Rheumatoid arthritis: (3) Schwannoma: (4) Urinary incontinence: (5) Diabetes mellitus: (6) Anxiety: (7) GERD (gastroesophageal reflux disease): Plan 41 yo F with PMH chronic low back pain, schwannoma, RA, osteoarthritis, lumbar disc herniation, DM2, obesity, stress incontinence admitted for low back pain with N/T bilaterally R>L and increased urinary incontinence over the past few weeks. Lumbar back pain -Suspect back pain likely multifactorial- multiple contributors of RA, obesity, schwannoma, osteoarthritis -Previously seen by neurosurgeon in [facility]- previous lumbar spine MRIs done demonstrating arthritis with disc herniation and schwannoma (states around L5- S1/S2) with plan to continue observation. -Currently low suspicion for acute emergency such as cauda equina syndrome. Patient's urinary incontinence is more in line with stress incontinence. -No fever, chills, headache, bowel incontinence at time of admission -CBC, BMP, UA unremarkable though +calcium oxalate crystals noted in UA. -Orthopedics consulted. They will wait until MRI results are completed. -Deferring neurology consult for now pending MRI results -Pain control with Decadron 6 mg IV daily, Toradol PRN, tramadol PRN, Tylenol 1000 mg q8h -Lumbar Xray was negative for anything acute. -MRI lumbar spine w/wo contrast ordered- pt will need sedation prior to MRI due to claustrophobia -Anesthesia consulted -IV Benadryl pretreatment due to contrast allergy- reported hives and throat swelling with CT contrast. -made NPO after midnight -PT/OT ordered -MRI results are pending ortho review. Initial input is that no surgery would be needed at this time and patient should f/u with [place] neurosurgery but pending note completion. Rheumatoid arthritis -Has been on multiple RA biologic medications in past -Review of outpatient records states pt was on methotrexate as of 01/2022 but pt states she has not been on methotrexate for past several weeks due to adverse effects -Low concern for atlantoaxial subluxation at present -Lack of biologics over past several weeks may be contributing to worsening pain Schwannoma -[facility] records retrieved -10/2021 lumbar MRI -6 x 8 x 11 mm L2 vertebral level intradural/extramedullary lesion stable in size compared to 08/2020 [facility] images -Nerve root contact at L4-L5, L5-S1 -Multilevel neural foraminal narrowing, worst on left at L4-L5 -L4-L4 and L4-L5 disc annular fissures Urinary incontinence -Known history of stress incontinence -Recently increased urinary incontinence may indicate possible neurologic involvement at S1/S2 though low suspicion for cauda equina -UA unremarkable -Bladder scan with PVR ordered Diabetes mellitus -Last A1C 5.6% in 02/2021 -BSGs acceptable at present -SSI ordered Anxiety -Continue Zoloft 50 mg nightly GERD (gastroesophageal reflux disease) -Continue pantoprazole 40 mg daily Fluids: none Nutrition: DM 2 diet Code status: full code DVT ppx: Lovenox Consults: orthopedic surgery, anesthesiology PT/OT: on Dispo: med/surg Thank you for allowing me to participate in the care of your patient. -Dr. Hany Valencia PGY1 Discharge Plan Discharge Items Reason For Visit: LOW BACK PAIN Condition on Discharge: Good Follow-up/Referrals: Farhat Tellez MD [Primary Care Provider] - Medications and DC Order Prescriptions: No Action sertraline 50 mg tablet 50 mg PO QPM Qty: 90 3RF ibuprofen [Advil] 200 mg Tablet 200 mg PO Q6H PRN (Reason: Pain) diclofenac sodium [Voltaren Arthritis Pain] 1 % Gel 2 g TOPICAL QID PRN (Reason: Pain) pantoprazole 40 mg tablet,delayed release (DR/EC) 40 mg PO QPM Rx Instructions: TAKE 1 TABLET BY MOUTH ONCE DAILY methylprednisolone [Medrol (Nelson)] 4 mg tablets,dose pack See Rx Instructions .ROUTE .COMPLEX Qty: 21 0RF Rx Instructions: 4 mg orally Admission Data Admit Date/Time: 04/13/22 19:58 Attending Provider: Og Viera Admit Provider: Giuliana De Los Santos Primary Care Provider: Farhat Tellez Other Providers: Irma Rodriguez ; Giuliana De Los Santos ; Ronald Cai ; Hao Hamilton.
[2022-04-16 07:59] LABS: Albumin Globulin Ratio 1.4 (0.9-2); Albumin Level 3.8 gm/dl (3.4-5.0); BUN Creatinine Ratio 32.9 (10-20); Bilirubin,Total 0.4 mg/dl (0.2-1.0); Calcium 8.6 mg/dl (8.5-10.1); Creatinine Clr Calc Pharmacy 136.6 ml/min; Est GFR (African American) 111.4 ml/min; Est GFR (Non-African American) 96.1 ml/min; Globulin 2.8 gm/dl (2.5-4.0); Potassium 4.2 mmol/L (3.5-5.1); Total Protein 6.6 gm/dl (6.0-8.3)
[2022-04-16] MEDS: INSULIN ASPART PER UNIT SC SCH ×4 (08:57→20:44)
[2022-04-16] MEDS: LIDOCAINE 5% 1 PATCH TD SCH (08:58)
[2022-04-16] MEDS: dexAMETHasone 6 MG in SYRINGE 0 ML IV SCH (08:58)
[2022-04-16] MEDS: KETOROLAC 30 MG/ML VIAL IV PRN (09:01)
--- NOTE | 2022-04-16 09:22 | Hospitalist Progress Note ---
Date of Service April 16, 2022 Assessment & Plan (1) Back pain: (2) Rheumatoid arthritis: (3) Schwannoma: (4) Urinary incontinence: (5) Diabetes mellitus: (6) Anxiety: (7) GERD (gastroesophageal reflux disease): Plan 41 yo F with PMH chronic low back pain, schwannoma, RA, osteoarthritis, lumbar disc herniation, DM2, obesity, stress incontinence admitted for low back pain with N/T bilaterally R>L and increased urinary incontinence over the past few weeks. Lumbar back pain -Suspect back pain likely multifactorial- multiple contributors of RA, obesity, schwannoma, osteoarthritis -Previously seen by neurosurgeon in [facility]- previous lumbar spine MRIs done demonstrating arthritis with disc herniation and schwannoma (states around L5- S1/S2) with plan to continue observation. -Currently low suspicion for acute emergency such as cauda equina syndrome. Patient's urinary incontinence is more in line with stress incontinence. -No fever, chills, headache, bowel incontinence at time of admission -CBC, BMP, UA unremarkable though +calcium oxalate crystals noted in UA. -Orthopedics consulted. They will wait until MRI results are completed. -Deferring neurology consult for now pending MRI results -Pain control with Decadron 6 mg IV daily, Toradol PRN, tramadol PRN, Tylenol 1000 mg q8h -Lumbar Xray was negative for anything acute. -MRI lumbar spine w/wo contrast ordered- pt will need sedation prior to MRI due to claustrophobia -Anesthesia consulted -IV Benadryl pretreatment due to contrast allergy- reported hives and throat swelling with CT contrast. -made NPO after midnight -PT/OT ordered -MRI results are pending ortho review. Initial input is that no surgery would be needed at this time and patient should f/u with [place] neurosurgery. -Patient doing a little worse today with more pain, numbness, tingling, and having some N/T with a bowel movement. -Will increase pain control with scheduled Tylenol, Toradol gabapentin, and increase tramadol. OMT possibly with PCP. Will try to exhaust conservative care before sending to surgery. Rheumatoid arthritis -Has been on multiple RA biologic medications in past -Review of outpatient records states pt was on methotrexate as of 01/2022 but pt states she has not been on methotrexate for past several weeks due to adverse effects -Low concern for atlantoaxial subluxation at present -Lack of biologics over past several weeks may be contributing to worsening pain Schwannoma [facility] -10/[facility]21 lumbar MRI -6 x 8 x 11 mm L2 vertebral level intradural/extramedullary lesion stable in size compared to 08/2020 [facility] images -Nerve root contact at L4-L5, L5-S1 -Multilevel neural foraminal narrowing, worst on left at L4-L5 -L4-L4 and L4-L5 disc annular fissures Urinary incontinence -Known history of stress incontinence -Recently increased urinary incontinence may indicate possible neurologic involvement at S1/S2 though low suspicion for cauda equina -UA unremarkable -Bladder scan with PVR ordered Diabetes mellitus -Last A1C 5.6% in 02/2021 -BSGs acceptable at present -SSI ordered Anxiety -Continue Zoloft 50 mg nightly GERD (gastroesophageal reflux disease) -Continue pantoprazole 40 mg daily Fluids: none Nutrition: DM 2 diet Code status: full code DVT ppx: Lovenox Consults: orthopedic surgery, anesthesiology PT/OT: on Dispo: med/surg Thank you for allowing me to participate in the care of your patient. -Dr. Hany Valencia PGY1 Admission and Anticipated Discharge Date Admission Date: April 13, 2022 Supervising Physician Co-Signing Physician Notes I personally examined the patient and verified all vasques points of history and exam, discussed case, and agree with decision making with Dr Valencia. Pain about the same Vitals noted, in general she is awake and alert appears somewhat anxious and mildly uncomfortable. HEENT normocephalic atraumatic mucous membranes moist. Breathing unlabored no accessory muscle use good effort. skin no rashes no pallor or icterus Lumbar radiculopathyno need for emergent surgery, no surgery at this time. Discussed comprehensive noninvasive plan. Escalate pain control for nowsched uled Tylenol, scheduled Toradol, increase tramadol, start gabapentin and titrate as quickly as she tolerates. OMT with PCP for surrounding biomechanical issues. Decompression to open up neuroforamina, spinal injections with pain management, time. Discussed that the main problem with this approach might be intolerable pain leading to a sooner surgery, and yet at the same time, she would have a r easonable probability of success with conservative care as long as we are able to keep pain under control. Otherwise as above Subjective Patient was seen beside this AM. She states that she is in worse pain today than yesterday. States that she is also having some increase in numbness while having a bowel movement. Patient is also stating that she is having some anterior hip pain which was not present the day before. She continues to have some urinary incontinence with stretching and moving her pain into painful positions. Review of Systems Review of Systems: Per subjective Physical Exam Constitutional: WD/WN, vitals as above Eyes: PERRL, conjunctivae normal, anicteric sclerae Neck: trachea midline, no thyromegaly Respiratory: normal respiratory effort, lungs clear to auscultation Cardiovascular: RRR, no murmur, no edema Gastrointestinal (Abdomen): normal bowel sounds, soft, nontender, no hepatosplenomegaly Musculoskeletal: Spine: + limited thoraco-lumbar ROM, + lumbar spinal tenderness and + straight leg raise positive Extremities: + limited ROM of extremities (LE ) and strength 5/5 throughout Skin: no rashes, warm and dry Neurologic: Motor/Sensory: + sensory deficit (R foot 1/2 sensation ) Psychiatric: A+Ox3, euthymic affect Results & Data Results & Data ([facility]) Vital Signs (Past 12 Hours) Vital Signs Temp Pulse Resp BP Pulse Ox O2 Del Method 04/16/22 07:48 36.5 C 64 18 129/82 95 Room Air 04/15/22 23:51 36.3 C L 61 18 118/73 95 Room Air Resident Activity Tracking Resident Involvement: Resident Care Provided Care Provided: Adult Hospital Medicine
[2022-04-16 10:29] LABS: Estimated Average Glucose 111 mg/dl; Hemoglobin A1C 5.5 % (4.5-5.6)
[2022-04-16] MEDS: GABAPENTIN 300 MG CAP PO SCH ×2 (12:43→20:22)
[2022-04-16] MEDS: KETOROLAC TROMETHAMINE 15 MG/ML VIAL IV SCH ×3 (12:50→20:21)
[2022-04-16] MEDS ORDERED: ACETAMINOPHEN 325 MG TAB PO SCH (14:00)
--- NOTE | 2022-04-16 18:16 | Billing Data ---
Date of Service April 16, 2022 Coding Level of Care Code 50292 Subseq Hosp Care Lvl 3
[2022-04-16] MEDS: SERTRALINE HCL 50 MG TABLET PO SCH (20:22)
[2022-04-16] MEDS: PANTOprazole 40 MG TAB PO SCH (20:22)
[2022-04-17] MEDS: ACETAMINOPHEN 500 MG TAB PO SCH ×3 (06:25→21:52)
[2022-04-17] MEDS: traMADol HCL 50 MG TABLET PO PRN (06:28)
--- NOTE | 2022-04-17 06:44 | Hospitalist Progress Note ---
Date of Service April 17, 2022 Assessment & Plan (1) Back pain: (2) Rheumatoid arthritis: (3) Schwannoma: (4) Urinary incontinence: (5) Diabetes mellitus: (6) Anxiety: (7) GERD (gastroesophageal reflux disease): Plan 41 yo F with PMH chronic low back pain, schwannoma, RA, osteoarthritis, lumbar disc herniation, DM2, obesity, stress incontinence admitted for low back pain with N/T bilaterally R>L and increased urinary incontinence over the past few weeks. Lumbar back pain -Suspect back pain likely multifactorial- multiple contributors of RA, obesity, schwannoma, osteoarthritis -Previously seen by neurosurgeon in [facility]- previous lumbar spine MRIs done demonstrating arthritis with disc herniation and schwannoma (states around L5- S1/S2) with plan to continue observation. -Low suspicion for acute emergency such as cauda equina syndrome at time of admission. Patient's urinary incontinence is more in line with stress incontinence. -No fever, chills, headache, bowel incontinence at time of admission -CBC, BMP, UA unremarkable though +calcium oxalate crystals noted in UA. -Lumbar Xray was negative for anything acute. -MRI lumbar spine w/wo contrast was done and reviewed by ortho on 04/15. States no surgery would be needed at this time and patient should f/u Neurosurgery in [facility] -Deferring neurology consult for now due to input from ortho. -PT/OT ordered and following -Patient having worsening symptoms with saddle anesthesia on 04/17 raised concern for an acute emergency such as cauda equina syndrome. Ortho consulted and CT lumbar and thoracic spine ordered stat. -No changes were seen on CT and patient is to follow up with neurosurgery in [facility]. -Will increase pain control with scheduled: Tylenol 650mg TID, Gabapentin 300mg QAM and 600mg QPM, Tramadol 100mg Q4H, Toradol 10mg QID. -Will try to exhaust conservative care before opting for surgery. -Will order Thoracic MRI due to patient having numbeness up into her ab but which stops right at the level of T10. -Will all images are normal then may consider the patient having some symptoms of conversion disorder. Rheumatoid arthritis -Has been on multiple RA biologic medications in past -Review of outpatient records states pt was on methotrexate as of 01/2022 but pt states she has not been on methotrexate for past several weeks due to adverse effects -Low concern for atlantoaxial subluxation at present -Lack of biologics over past several weeks may be contributing to worsening pain Schwannoma -[facility] records retrieved -10/2021 lumbar MRI -6 x 8 x 11 mm L2 vertebral level intradural/extramedullary lesion stable in size compared to 08/2020 [facility] images -Nerve root contact at L4-L5, L5-S1 -Multilevel neural foraminal narrowing, worst on left at L4-L5 -L4-L4 and L4-L5 disc annular fissures Urinary incontinence -Known history of stress incontinence -Recently increased urinary incontinence may indicate possible neurologic involvement at S1/S2 -UA unremarkable -Bladder scan with PVR ordered Diabetes mellitus -Last A1C 5.6% in 02/2021 -BSGs acceptable at present -SSI ordered Anxiety -Continue Zoloft 50 mg nightly GERD (gastroesophageal reflux disease) -Continue pantoprazole 40 mg daily Fluids: none Nutrition: DM 2 diet Code status: full code DVT ppx: Lovenox Consults: orthopedic surgery, anesthesiology PT/OT: on Dispo: med/surg Thank you for allowing me to participate in the care of your patient. -Dr. Hany Valencia PGY1 Admission and Anticipated Discharge Date Admission Date: April 16, 2022 Supervising Physician Co-Signing Physician Notes I personally examined the patient and verified all vasques points of history and exam, discussed case, and agree with decision making with Dr Valencia. Pain the same or worse, she is very concerned because the numbness is worsening. Bilateral lower extremities now. Hard to stand. Hard to walk. Vitals noted, in general she is awake and alert appears somewhat anxious and mildly uncomfortable. HEENT normocephalic atraumatic mucous membranes moist. Breathing unlabored no accessory muscle use good effort. skin no rashes no pallor or icterus. Bilateral lower extremities with diminished sensation across really all dermatomes, great toe raise about 4 out of 5 foot rate is about 4-5 on the right 5 out of 5 on the left. A little bit diminished strength probably 4+ out of 5 raising and lowering the leg, although hard to tell if it is from weakness or pain. Slow and very antalgic going to standing looks a little unsteady, uses a walker. Sensation also surprisingly diminished to about a T10 dermatome above which she has normal bilateral sensation. This diminished sensation is bilateral. Lumbar radiculopathyseems to be related to disc disease, conservative care for now New and abruptly worsening paresthesiasCT of T and L-spine reassuring, but given that her paresthesias are progressing even as the day goes on, discussed with the on-call for her neurosurgeon at [facility], we agreed T-spine MRI would be warranted to evaluate for spinal cord findings the CT might not be able to pick updiscussed with patient she is okay with this. May need to consider neurology if she has ongoing upward progressing paresthesias if T-spine MRI does not yield findings (would need to consider things such as LP, escalated steroids, MRI brain, EMG/NCV) Otherwise as above Subjective Patient was having a BM this morning and felt a pop. She started to have N/T in her inner thighs into her "private areas." She also states that she When she heard the pop her, she started to have diarrhea that "ran out" of her. Review of Systems Review of Systems: All systems reviewed & are unremarkable except as noted in Subjective Physical Exam Constitutional: WD/WN, vitals as above Eyes: PERRL, conjunctivae normal, anicteric sclerae Neck: trachea midline, no thyromegaly Respiratory: normal respiratory effort, lungs clear to auscultation Cardiovascular: RRR, no murmur, no edema Gastrointestinal (Abdomen): normal bowel sounds, soft, nontender, no hepatosplenomegaly Musculoskeletal: no cyanosis or clubbing, extremities motor strength 5/5 Spine: + limited thoraco-lumbar ROM, + lumbar spinal tenderness and + straight leg raise positive Extremities: + limited ROM of extremities (LE ) and strength 5/5 throughout Skin: no rashes, warm and dry Neurologic: Motor/Sensory: + sensory deficit (R foot 1/2 sensation ) saddle anesthesia Psychiatric: A+Ox3, euthymic affect Results & Data Results & Data ([facility]) Vital Signs (Past 12 Hours) Vital Signs Temp Pulse Resp BP Pulse Ox O2 Del Method 04/16/22 22:43 36.6 C 60 18 109/70 94 Room Air Resident Activity Tracking Resident Involvement: Resident Care Provided Care Provided: Adult Hospital Medicine
[2022-04-17] MEDS: dexAMETHasone 6 MG in SYRINGE 0 ML IV SCH (08:05)
[2022-04-17] MEDS: KETOROLAC TROMETHAMINE 15 MG/ML VIAL IV SCH ×4 (08:05→21:51)
[2022-04-17] MEDS: GABAPENTIN 300 MG CAP PO SCH (08:05)
[2022-04-17] MEDS: LIDOCAINE 5% 1 PATCH TD SCH (08:06)
[2022-04-17] MEDS ORDERED: ONDANSETRON INJ 2 MG/ML 2 ML VIAL IV STA (08:45)
[2022-04-17] MEDS: INSULIN ASPART PER UNIT SC SCH ×4 (08:56→21:45)
--- NOTE | 2022-04-17 11:06 | Orthopedic Progress Note ---
Date of Service April 17, 2022 Assessment & Plan (1) Schwannoma: Plan: MRI lumbar spine performed the other day demonstrates no evidence of gross neural compression that would certainly account for her complaints this morning. Based on her complaints today I would like to obtain an urgent thoracic and lumbar CAT scan to rule out any gross canal encroachment that could account for her symptom complex. If these are normal I have nothing to offer her from an orthopedic spine standpoint. She is not a surgical candidate based on the MRI done a few days ago. If the CAT scans are within normal limits she is to follow-up with her neurosurgeon in [facility]. Admission and Anticipated Discharge Date Admission Date: April 16, 2022 Subjective Patient complaining of sudden back pain and bilateral leg pain numbness and tingling this morning when trying out of the bathroom. Apparently at that time she lost control of her bowel bladder. This time she is in bed. She states the pain is still present and she has decreased feeling in her legs and perineal area. Physical Exam Physical Exam: On exam she is cooperative but concerned. She exhibits reasonable plantar flexion dorsiflexion bilaterally. Sensory is intact. Results & Data ([facility]) Vital Signs (Past 12 Hours) Vital Signs Temp Pulse Resp BP Pulse Ox O2 Del Method 04/17/22 07:51 36.4 C L 57 L 18 117/82 96 Room Air 04/17/22 07:28 Room Air
[2022-04-17] MEDS ORDERED: OPTIRAY 350 100ml IV ONE (11:42)
--- NOTE | 2022-04-17 12:49 | CT Scan Report ---
LUMBAR SPINE CT CT DOSE: 713.73 mGycm HISTORY: worsening/new lower extremity numbness; perineum TECHNIQUE: Multiaxial CT images of the lumbar spine were performed and reformatted in the sagittal an d coronal plane without the use of contrast. A dose lowering technique was utilized adhering to the principles of ALARA. COMPARISON: Lumbar spine MRI 04/15/2022. Lumbar spine CT 02/20/2017. FINDINGS: No fracture or subluxation within the lumbar spine. No significant disc space narrowing. Th e sacrum appears intact. Prior cholecystectomy. Mild facet degenerative changes within the lower lumb ar spine. No evidence for spondylolysis. The 8 mm intradural lesion at the L2 level is not clearly id entified by this modality. IMPRESSION: No fractures within the lumbar spine. ACT 112: Negative or not required by law. Electronically signed by: Jacek Joseph M.D. 04/17/2022 12:46 PM
--- NOTE | 2022-04-17 12:52 | CT Scan Report ---
CT SCAN OF THE THORACIC SPINE WITHOUT IV CONTRAST CLINICAL HISTORY: Progressive lower extremity numbness. COMPARISON STUDY: Chest CT dated 12/13/2019. TECHNIQUE: CT scan of the thoracic spine is performed from the lower cervical spine to the upper lumb ar spine. Images are reviewed in the axial, sagittal, and coronal planes. IV contrast was not adminis tered for this examination. A dose lowering technique was utilized adhering to the principles of HOWARDR Norah. CT DOSE: 960.33 mGycm FINDINGS: The skeletal structures are well mineralized. There is no evidence of fracture or malalignm ent involving the thoracic spine. Vertebral body height and alignment are maintained. The transverse and spinous processes appear intact. No lytic or blastic lesion is seen. There are tiny anterior oste ophytes seen throughout. The intervertebral disc spaces are maintained. There is no CT evidence of la rge disc herniation or central canal stenosis. There is no CT evidence of high-grade neural foraminal narrowing. The paraspinous soft tissues are within normal limits. The posterior ribs are intact as v isualized. The imaged lung parenchyma appears clear noting dependent atelectasis. IMPRESSION: 1. No acute bony abnormality is seen involving the thoracic spine. 2. There is no CT evidence of large disc herniation or high-grade central canal stenosis. ACT 112: Negative or not required by law. Dictated: 04/17/2022 12:02 PM Transcribed: 04/17/2022 12:20 PM Colette [id number] ADALID_Raya Electronically signed by: Hany Cole M.D. 04/17/2022 12:50 PM
[2022-04-17] MEDS ORDERED: LORazepam 0.5 MG in SYRINGE 0 ML IV PRN (16:43)
[2022-04-17] MEDS ORDERED: diphenhydrAMINE 50 MG/ML VIAL IV PRN (16:43)
--- NOTE | 2022-04-17 20:05 | Billing Data ---
Date of Service April 17, 2022 Coding Level of Care Code 80522 Subseq Hosp Care Lvl 3
[2022-04-17] MEDS ORDERED: GABAPENTIN 300 MG CAP PO SCH (21:00)
[2022-04-17] MEDS ORDERED: GADOBUTROL 65ML VIAL IV ONE (21:31)
[2022-04-17] MEDS: SERTRALINE HCL 50 MG TABLET PO SCH (21:53)
[2022-04-17] MEDS: PANTOprazole 40 MG TAB PO SCH (21:53)
[2022-04-18] MEDS: ACETAMINOPHEN 500 MG TAB PO SCH ×2 (06:12→13:54)
--- NOTE | 2022-04-18 07:03 | Hospitalist Progress Note ---
Date of Service April 18, 2022 Assessment & Plan (1) Back pain: (2) Rheumatoid arthritis: (3) Schwannoma: (4) Urinary incontinence: (5) Diabetes mellitus: (6) Anxiety: (7) GERD (gastroesophageal reflux disease): Plan 41 yo F with PMH chronic low back pain, schwannoma, RA, osteoarthritis, lumbar disc herniation, DM2, obesity, stress incontinence admitted for low back pain with N/T bilaterally R>L and increased urinary incontinence over the past few weeks. Lumbar back pain -Suspect back pain likely multifactorial- multiple contributors of RA, obesity, schwannoma, osteoarthritis -Previously seen by neurosurgeon in [facility]- previous lumbar spine MRIs done demonstrating arthritis with disc herniation and schwannoma (states around L5- S1/S2) with plan to continue observation. -Low suspicion for acute emergency such as cauda equina syndrome at time of admission. Patient's urinary incontinence is more in line with stress incontinence. -No fever, chills, headache, bowel incontinence at time of admission -CBC, BMP, UA unremarkable though +calcium oxalate crystals noted in UA. -Lumbar Xray was negative for anything acute. -MRI lumbar spine w/wo contrast was done and reviewed by ortho on 04/15. States no surgery would be needed at this time and patient should f/u Neurosurgery in [facility] -Deferring neurology consult for now due to input from ortho. -PT/OT ordered and following -Patient having worsening symptoms with saddle anesthesia on 04/17 raised concern for an acute emergency such as cauda equina syndrome. Ortho consulted and CT lumbar and thoracic spine ordered stat. -No changes were seen on CT and patient is to follow up with neurosurgery in [facility]. -Will increase pain control with scheduled: Tylenol 650mg TID, Gabapentin 300mg QAM and 600mg QPM, Tramadol 100mg Q4H, Toradol 10mg QID. -Will try to exhaust conservative care before opting for surgery. -Will order Thoracic MRI due to patient having numbeness up into her ab but which stops right at the level of T10. -Will all images are normal then may consider the patient having some symptoms of conversion disorder. Rheumatoid arthritis -Has been on multiple RA biologic medications in past -Review of outpatient records states pt was on methotrexate as of 01/2022 but pt states she has not been on methotrexate for past several weeks due to adverse effects -Low concern for atlantoaxial subluxation at present -Lack of biologics over past several weeks may be contributing to worsening pain Schwannoma -[facility] records retrieved -10/2021 lumbar MRI -6 x 8 x 11 mm L2 vertebral level intradural/extramedullary lesion stable in size compared to 08/2020 [facility] images -Nerve root contact at L4-L5, L5-S1 -Multilevel neural foraminal narrowing, worst on left at L4-L5 -L4-L4 and L4-L5 disc annular fissures Urinary incontinence -Known history of stress incontinence -Recently increased urinary incontinence may indicate possible neurologic involvement at S1/S2 -UA unremarkable -Bladder scan with PVR ordered Diabetes mellitus -Last A1C 5.6% in 02/2021 -BSGs acceptable at present -SSI ordered Anxiety -Continue Zoloft 50 mg nightly GERD (gastroesophageal reflux disease) -Continue pantoprazole 40 mg daily Fluids: none Nutrition: DM 2 diet Code status: full code DVT ppx: Lovenox Consults: orthopedic surgery, anesthesiology PT/OT: on Dispo: med/surg Thank you for allowing me to participate in the care of your patient. -Dr. Hany Valencia PGY1 Admission and Anticipated Discharge Date Admission Date: April 16, 2022 Results & Data Results & Data ([facility]) Vital Signs (Past 12 Hours) Vital Signs Temp Pulse Resp BP Pulse Ox O2 Del Method 04/17/22 20:29 36.8 C 55 L 16 127/84 97 Room Air
--- NOTE | 2022-04-18 07:56 | Magnetic Resonance Report ---
THORACIC SPINE MRI WITH AND WITHOUT CONTRAST HISTORY: acute numbness T10 and distal TECHNIQUE: Multiplanar multisequence MRI of the thoracic spine was performed both before and after th e intravenous administration of contrast. COMPARISON: Lumbar spine MRI 04/15/2022. Thoracic spine CT 04/17/2022. FINDINGS: No fracture or subluxation within the thoracic spine. Minimal disc space narrowing within the mid tho racic spine. No disc herniations. No significant central canal or neural foraminal narrowing. There a re few scattered vertebral body hemangiomas within the thoracic spine. No suspicious osseous lesions. The thoracic spinal cord is normal and course, caliber, and signal intensity. IMPRESSION: 1. Normal thoracic spinal cord. 2. No fracture or subluxation within the thoracic spine. ACT 112: Negative or not required by law. Electronically signed by: Jacek Joseph M.D. 04/18/2022 7:54 AM
[2022-04-18] MEDS: dexAMETHasone 6 MG in SYRINGE 0 ML IV SCH (08:24)
[2022-04-18] MEDS: LIDOCAINE 5% 1 PATCH TD SCH (08:25)
[2022-04-18] MEDS: KETOROLAC TROMETHAMINE 15 MG/ML VIAL IV SCH ×3 (08:25→17:27)
[2022-04-18] MEDS ORDERED: GABAPENTIN 300 MG CAP PO SCH (09:00)
[2022-04-18] MEDS: INSULIN ASPART PER UNIT SC SCH ×3 (09:39→17:50)
[2022-04-18] MEDS: traMADol HCL 50 MG TABLET PO PRN (11:44)
--- NOTE | 2022-04-18 15:37 | Discharge Summary ---
Date of Service April 18, 2022 Admission HPI Per Admitting Provider Chief Complaint: Low back pain Primary Care Provider: Hany Valencia, DO 41 yo F with PMH chronic low back pain, schwannoma, RA, osteoarthritis, lumbar disc herniation, DM2, obesity, stress incontinence admitted with low back pain. Pt has experienced low back pain for past few years, underwent conservative management without significant relief. Was seen by neurosurgeon in [facility]- previous lumbar spine MRIs done demonstrating arthritis with disc herniation and schwannoma (states around L5-S1/S2) with plan to continue observation. 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 This job entails lifting heavy weights (50+ lbs) over her shoulders which she has not done before and she noticed gradual worsening of her pain after this. Low back pain has acutely worsened over past 3 days -Located in midline of lower back -Dull, intermittent, aching pain with 6-9/10 severity -Exacerbated by movement, improves with rest -Pain radiates to both lower extremities down to feet, describes as "shooting" sensation -Notes associated weakness of legs, some numbness and tingling -Advil, Voltaren gel does provide moderate relief -Has not limited ambulation though pt reports occasional difficulty maintaining her balance -No fever, chills, headache, bowel incontinence -Does have mild associated urinary incontinence- occasional leaking. Pt has been wearing some urinary pads recently. Notices this leakage occurs even in absence of cough, bearing weight down Last night, pain had worsened to point of pt lying in position with any movement exacerbating her pain. Subsequently decided to come to ED due to escalating pain. In ED, pt arrived hemodynamically stable. Toradol, Decadron, morphine, Dilaudid and lidocaine patch administered for pain control. CBC, BMP, UA unremarkable though +calcium oxalate crystals noted in UA. Lumbar XR without acute findings. Admission Exam Per Admitting Provider General: well-appearing, obese, no acute distress HEENT: moist mucous membranes, anicteric sclerae, PERRLA, EOMI Neck: supple, full ROM, no focal tenderness CV: RRR, normal S1 and S2, no murmurs Resp: CTAB, unlabored respirations Abd: soft, +mild suprapubic tenderness, nondistended, no CVA tenderness b/l MSK: +TTP to lower midline of back and SI joints b/l, normal bulk and tone of LE b/l, straight leg test raise limited to 30 degrees on R side and 45-50 degrees on L side, normal posture, full back ROM with forward flexion/extension/lateral rotation though pain noted with forward flexion, Neuro: 5/5 strength with dorsiflexion/plantarflexion of b/l LE, intact patellar and Achilles reflexes b/l, normal sensorium to light touch along L1 to S1 dermatomes, largely symmetric gait with occasional L weightbearing preference, negative Romberg Skin: no ecchymoses or rashes appreciated, no soft tissue swelling appreciated over LE b/l Psych: normal mood, stable affect Principal Diagnosis Lumbar back pain Discharge Exam Constitutional WD/WN, vitals as above Eyes PERRL, conjunctivae normal, anicteric sclerae Neck trachea midline, no thyromegaly Respiratory normal respiratory effort, lungs clear to auscultation Cardiovascular RRR, no murmur, no edema Gastrointestinal (Abdomen) normal bowel sounds, soft, nontender, no hepatosplenomegaly Musculoskeletal no cyanosis or clubbing, extremities motor strength 5/5 Spine: + limited thoraco-lumbar ROM, + lumbar spinal tenderness and + straight leg raise positive Extremities: + limited ROM of extremities (LE ) and strength 5/5 throughout Skin no rashes, warm and dry Neurologic Motor/Sensory: + sensory deficit (R foot 1/2 sensation ) Psychiatric A+Ox3, euthymic affect Discharge Data Allergies Allergy/AdvReac Type Severity Reaction Status Date / Time Iodinated Contrast Media Allergy Severe THROAT Verified 09/25/21 07:01 SWELLING/HIVES iodine Allergy Severe THROAT Verified 09/25/21 07:01 SWELLING/HIVES pregabalin [From Lyrica] Allergy Severe Rash Verified 10/31/21 15:18 shellfish derived Allergy Severe THROAT Verified 09/25/21 07:01 SWELLS prochlorperazine AdvReac Intermediate DRY MOUTH, Verified 09/25/21 07:01 AGITATED Consultations 04/13/22 18:56 ED Decision to Admit Stat 04/13/22 20:55 Consult Orthopedic Surgery Routine 04/13/22 20:59 Consult Anesthesiology Routine Procedures Performed Operation Date: 04/15/22 09:15 <No data on this case meets the specified criteria> Ordered Studies 04/15/22 09:15 MR lumbar spine wo/w con Stat 04/17/22 11:01 CT thoracic spine wo con Urgent 04/17/22 11:02 CT lumbar spine wo con Urgent 04/17/22 16:43 MRI Thoracic [MR thoracic spine wo/w con] Urgent Hospital Course (1) Back pain: (2) Rheumatoid arthritis: (3) Schwannoma: (4) Urinary incontinence: (5) Diabetes mellitus: (6) Anxiety: (7) GERD (gastroesophageal reflux disease): Plan 41 yo F with PMH chronic low back pain, schwannoma, RA, osteoarthritis, lumbar disc herniation, DM2, obesity, stress incontinence admitted for low back pain with N/T bilaterally R>L and increased urinary incontinence over the past few weeks. Lumbar back pain -Suspect back pain likely multifactorial- multiple contributors of RA, obesity, schwannoma, osteoarthritis -Previously seen by neurosurgeon in [facility]- previous lumbar spine MRIs done demonstrating arthritis with disc herniation and schwannoma (states around L5- S1/S2) with plan to continue observation. -Low suspicion for acute emergency such as cauda equina syndrome at time of admission. Patient's urinary incontinence is more in line with stress incontinence. -No fever, chills, headache, bowel incontinence at time of admission -CBC, BMP, UA unremarkable though +calcium oxalate crystals noted in UA. -Lumbar Xray was negative for anything acute. -MRI lumbar spine w/wo contrast was done and reviewed by ortho on 04/15. States no surgery would be needed at this time and patient should f/u Neurosurgery in [facility] -Deferring neurology consult for now due to input from ortho. -PT/OT ordered and following -Patient having worsening symptoms with saddle anesthesia on 04/17 raised concern for an acute emergency such as cauda equina syndrome. Ortho consulted and CT lumbar and thoracic spine ordered stat. -No changes were seen on CT and patient is to follow up with neurosurgery in [facility]. -Will increase pain control with scheduled: Tylenol 650mg TID, Gabapentin 300mg QAM and 600mg QPM, Tramadol 100mg Q4H, Toradol 10mg QID. -Will try to exhaust conservative care before opting for surgery. -Will order Thoracic MRI due to patient having numbness up into her ab but which stops right at the level of T10. -Patient will f/u with me her PCP in one week. Will set up PT referral, neurosurgery referral, and pain management referral. -Sent home on gabapentin 300mg BID with tramadol prn. Will plan to do OMT in the office. Rheumatoid arthritis -Has been on multiple RA biologic medications in past -Review of outpatient records states pt was on methotrexate as of 01/2022 but pt states she has not been on methotrexate for past several weeks due to adverse effects -Low concern for atlantoaxial subluxation at present -Lack of biologics over past several weeks may be contributing to worsening pain Schwannoma -[facility] records retrieved -10/2021 lumbar MRI -6 x 8 x 11 mm L2 vertebral level intradural/extramedullary lesion stable in size compared to 08/2020 [facility] images -Nerve root contact at L4-L5, L5-S1 -Multilevel neural foraminal narrowing, worst on left at L4-L5 -L4-L4 and L4-L5 disc annular fissures Urinary incontinence -Known history of stress incontinence -Recently increased urinary incontinence may indicate possible neurologic involvement at S1/S2 -UA unremarkable Diabetes mellitus -Last A1C 5.6% in 02/2021 -BSGs acceptable at present -SSI ordered Anxiety -Continue Zoloft 50 mg nightly GERD (gastroesophageal reflux disease) -Continue pantoprazole 40 mg daily Thank you for allowing me to participate in the care of your patient. -Dr. Hany Valencia PGY1 Total Time Total Time Spent Total Time Spent (In Minutes): <30 Discharge Plan Discharge Items Patient Disposition: Home - Self-Care Reason For Visit: LOW BACK PAIN Discharge Diagnosis: Back pain Schwannoma Condition on Discharge: Good Activity: Per Instructions section Lifting: Gradually increase as tolerated Bathing: No limitations Exercise/Sports: Gradually increase as tolerated Non-emergency contact: Primary Care Provider and Specialist Call non-emergency contact if: your pain is unusual for you and your temperature is above 101.5 Follow-up/Referrals: Farhat Tellez MD [Primary Care Provider] - 04/23/22 1:30 pm Diet: Carb Consistent or DM2 Addtl Attending Provider Instructions: You were admitted to the hospital for low back pain. You were treated with steroids and pain medication. You had an MRI and CT of your lumbar and thoracic spine. The imaging of your spine did not show anything acute that requires immediately surgery at this time. You will be A discharge summary will be sent to your primary care physician to ensure cont inuity of care. Please bring this discharge summary with you to your next office appointment so that your provider can review it at that time. Follow-up appointments: * Make a follow-up appointment with your PCP within the next week. It is very important that you follow up with them shortly after discharge from the hospital. * Make a follow-up appointment with Neurosurgery in [place] to discuss further treatment options for your spine issues. * Make an appointment with pain management to discuss injections for back pain. * Please make an appointment for physical therapy to help with your back pain. * Keep all your follow-up appointments as already scheduled. If you cannot make an appointment, notify your provider. Medications: Your medication list has been reviewed and reconciled upon discharge to ensure accuracy and continuity of care. An updated list of all your medications is included with your hospital discharge paperwork. Please review this list closely, and make note of any changes. * We sent a new medication called Gabapentin to your pharmacy. Take Gabapentin (300mg) twice a day. * We sent a new medication called Tramadol to your pharmacy. Take tramadol (100mg) as needed for back pain. * You should get over the counter acetaminophen. Take acetaminophen (1000mg) three times a day. * If you * If you have any issues filling these prescriptions, please call [phone] and ask to leave a message for Dr. Valencia. * Take your medications as instructed; do not skip a dose of your medicines. Make sure all of your doctors know every medicine you are taking (including cptd-ydp-sacrewv medicines, vitamins, and supplements). Call your primary care provider before taking any new medicines (including over- the-counter medic tima, vitamins, and supplements), because some of these may interact with your current medications, or may make your symptoms worse. Tell your primary care provider if you cannot afford your medications. CONTACT YOUR PRIMARY CARE PROVIDER if you experience any of the following: * Worsening of symptoms * Fever, chills, or fatigue * Difficulty following your treatment plan, or difficulty taking medications CALL 911 OR GO TO THE EMERGENCY DEPARTMENT if you experience any of the following: * Sudden, severe abdominal pain or nausea/vomiting * Severe chest pain, or chest pain that radiates (moves) to your jaw or arm * Sudden, severe shortness of breath or difficulty breathing Thank you for allowing us to participate in your care. Pending Studies at Discharge: No Stand-Alone Forms: My [facility], Smoking Cessation Medications and DC Order Prescriptions: New gabapentin 300 mg capsule 300 mg PO BID 30 Days Qty: 60 0RF Continued sertraline 50 mg tablet 50 mg PO QPM Qty: 90 3RF ibuprofen [Advil] 200 mg Tablet 200 mg PO Q6H PRN (Reason: Pain) diclofenac sodium [Voltaren Arthritis Pain] 1 % Gel 2 g TOPICAL QID PRN (Reason: Pain) pantoprazole 40 mg tablet,delayed release (DR/EC) 40 mg PO QPM Rx Instructions: TAKE 1 TABLET BY MOUTH ONCE DAILY methylprednisolone [Medrol (Nelson)] 4 mg tablets,dose pack See Rx Instructions .ROUTE .COMPLEX Qty: 21 0RF Rx Instructions: 4 mg orally Discharge Orders: Discharge Order (Routine); Ordered 04/18/22 Ordered By: Hany Valencia Admission Data Admit Date/Time: 04/16/22 18:08 Attending Provider: Og Viera Admit Provider: Giuliana De Los Santos Primary Care Provider: Farhat Tellez Other Providers: Irma Rodriguez ; Giuliana De Los Santos ; Ronald Cai ; Hao Hamilton. Other Interventions: Discharge Summary Assessment (RN) Last Done: 04/18/22 17:34 Supervising Physician Co-Signing Physician Notes I personally examined the patient and verified all vasques points of history and exam, discussed case, and agree with decision making with Dr Valencia. Pain about the same. Discussed overall plan. She is understandably reticent but okay to go home. Will be having close follow-up with PCP. Vitals noted, in general she is awake and alert appears somewhat anxious and mildly uncomfortable. HEENT normocephalic atraumatic mucous membranes moist. Breathing unlabored no accessory muscle use good effort. skin no rashes no pallor or icterus. Exam otherwise as above Lumbar radiculopathydisc disease related, no imminent need for surgery. Conservative (aggressive but conservative) care with decompression, OMT, steroid injections, pain control, and PT. Close outpatient follow-up Otherwise as above Resident Activity Tracking Resident Involvement: Resident Care Provided Care Provided: Adult Hospital Medicine
--- NOTE | 2022-04-18 19:51 | Billing Data ---
Date of Service April 18, 2022 Coding Level of Care Code D/C DAY MANAGEMENT <30 MINS
== END 2022-04-18 18:00 | disposition home or self-care (01) ==
LOC: ED 14:53 → 3W 14:53 → SUATTDRO 19:58 → 3W 21:12